=== PATIENT | male | born 1965 | race Caucasian/White ===

== ENCOUNTER → 2017-08-09 06:59 | Outpatient (CLI) | payer OTHER, SELFPAY ==
[2017-08-09 07:44] LABS: Absolute Lymphocyte Count 2.99 X10^3/ul (0.83-4.51); Absolute Neutrophil Count 3.6 X10^3/uL (2.0-7.7); Basophil% 2.5 % (0-1); Eosinophil# 0.44 X10^3/uL; Eosinophils% 5.6 % (0-5); Hematocrit 44.6 % (40-54); Hemoglobin 15.9 g/dl (13.0-16.5); Lymphocyte # 2.99 X10^3/ul (4.0); Lymphocyte % 37.8 % (19-41); Mean Corp Hgb Conc 35.7 g/gl (32-36); Mean Corpuscular Hgb 30.9 pg (27.0-32.0); Mean Corpuscular Volume 86.8 fL (80-94); Mean Platelet Vol. 9.9 fl (6.2-12.0); Monocyte# 0.68 X10^3/uL; Monocyte% 8.6 % (0-10); Neutrophil # 3.57 X10^3/uL (2.7-7.7); Neutrophil % 45.2 % (47-70); Platelet Count 148 K/mm3 (150-450); RBC Distribution Width CV 14.2 % (11.6-14.6); Red Blood Count 5.14 M/mm3 (4.6-6.2); White Blood Count 7.9 K/mm3 (4.4-11.0)
[2017-08-09 07:45] LABS: POSITIVE COUNT NO; POSITIVE DIFFERENTIAL NO; POSITIVE MORPHOLOGY NO
[2017-08-09 08:15] LABS: ALB/GLOB Ratio 0.9 RATIO (0.9-2.4); AST(SGOT) 18 U/L (15-37); Alanine Aminotransfer ALT/SGPT 19 U/L (16-61); Albumin, Serum 3.7 g/dL (3.2-5.0); Alkaline Phosphatase 98 U/L (45-117); Anion Gap 7 (5-15); BUN 9 mg/dL (7-18); BUN/Creat Ratio 10.5 RATIO (10-20); Calcium,Total 8.8 mg/dL (8.5-10.1); Chloride 95 mmol/L (98-107); Cholesterol 243 mg/dL (200); Creatinine, Serum 0.86 mg/dL (0.70-1.30); EST Glomerular Filtration Rate 99 mL/min (>60); Est Glom Filt Rate - Afr Amer 119 mL/min (>60); Globulin 4.2 g/dL (2.2-4.2); Glucose 87 mg/dL (74-106); High Density Lipoprotein 41 mg/dL; Protein, Total 7.9 g/dL (6.4-8.2); Sodium Level 131 mmol/L (136-145); Triglycerides 172 mg/dL; Very Low Density Lipoprotein 34 mg/dL (5-40)
[2017-08-09 08:51] LABS: Vitamin D,25 Hydroxy 10.2 ng/mL (19.95-100.01)
[2017-08-12 15:43] LABS: Testosterone, Total 640 ng/dL (264-916)
== END ==
PROVIDERS: Family Provider Internal Medicine; PCP Internal Medicine; Visit Provider Internal Medicine
DX: I10 Essential (primary) hypertension (principal); N52.9 Male erectile dysfunction, unspecified; F10.10 Alcohol abuse, uncomplicated
CPT/HCPCS: 36415; 80053; 80061; 82306; 84402; 84403; 85025

== ENCOUNTER → 2017-08-26 07:05 | Outpatient (CLI) | payer OTHER, SELFPAY ==
[2017-08-26 09:00] LABS: Anion Gap 8 (5-15); BUN 9 mg/dL (7-18); BUN/Creat Ratio 10.3 RATIO (10-20); Calcium,Total 8.7 mg/dL (8.5-10.1); Chloride 91 mmol/L (98-107); Creatinine, Serum 0.87 mg/dL (0.70-1.30); EST Glomerular Filtration Rate 97 mL/min (>60); Est Glom Filt Rate - Afr Amer 117 mL/min (>60); Glucose 75 mg/dL (74-106); PSA,Total - Annual Screen 1.03 ng/mL (0.00-4.00); Potassium 3.8 mmol/L (3.5-5.1); Sodium Level 128 mmol/L (136-145); Thyroid Stim Hormone (TSH) 3.36 uIU/mL (0.358-3.74)
== END ==
PROVIDERS: Family Provider Internal Medicine; PCP Internal Medicine; Visit Provider Nurse Practitioner Family
DX: I10 Essential (primary) hypertension (principal); N52.9 Male erectile dysfunction, unspecified; Z12.5 Encounter for screening for malignant neoplasm of prostate
CPT/HCPCS: 36415; 80048; 84153; 84443; G0103

== ENCOUNTER → 2017-09-07 07:02 | Outpatient (CLI) | payer OTHER, SELFPAY ==
[2017-09-07 07:37] LABS: Urine Sodium 77 mmol/L (Not Establ.)
[2017-09-07 08:47] LABS: Osmolality, Serum 278 mOsm/KG (275-295); Osmolality, Urine 467 mOsm/KG
== END ==
PROVIDERS: Family Provider Internal Medicine; PCP Internal Medicine; Visit Provider Nurse Practitioner Family
DX: E87.1 Hypo-osmolality and hyponatremia (principal)
CPT/HCPCS: 36415; 83930; 83935; 84300

== ENCOUNTER 2020-01-12 23:45 | Inpatient (IN) | payer OTHER, SELFPAY ==
--- NOTE | 2020-01-12 00:11 | RAD_ITS ---
STUDY: X-RAY CHEST REASON FOR EXAM: Male, 54 years old. Confusion. TECHNIQUE: AP portable upright COMPARISON: None. FINDINGS: No evidence of pneumonia, pulmonary edema, pneumothorax or pleural effusion. Mildly lucent and hyperinflated lungs. Cardiac silhouette, hilar and mediastinal contours with no acute findings. Atherosclerosis of the thoracic aorta. Degenerative osseous changes with no acute osseous abnormality. RAD/Chest 1 View (Portable) IMPRESSION: No acute findings. Suspect mild COPD/emphysema. Electronically Signed: Toni Casper, at 0:32 EDT Tel , Service support ,
[2020-01-12 23:46] VITALS: BP 170/93; PULSE 94; RESP 16; TEMP 36.6; O2SAT 98; BMI 22.3
--- NOTE | 2020-01-12 23:54 | EKG12_ITS ---
Test Reason : SYNCOPY Blood Pressure : / mmHG Vent. Rate : 084 BPM Atrial Rate : 084 BPM P-R Int : 200 ms QRS Dur : 124 ms QT Int : 422 ms P-R-T Axes : 064 021 050 degrees QTc Int : 498 ms Normal sinus rhythm Possible Left atrial enlargement Right bundle branch block Inferior infarct , age undetermined Abnormal ECG Confirmed by KHUSHBU DOMINGO, HUEY ([id number]), index editor MINISTERIO SYED ([id number]) on 01/15/2020 1:09:55 PM Referred By: NEL Confirmed By:HUEY RÍOS MD
--- NOTE | 2020-01-12 23:54 | CT_ITS ---
STUDY: CT BRAIN WITHOUT CONTRAST REASON FOR EXAM: Male, 54 years old. Confusion after falling. TECHNIQUE: Transaxial CT imaging of the brain was performed without administration of intravenous contrast material. Individualized dose optimization techniques were used for this CT. COMPARISON: No relevant priors. FINDINGS: No evidence of intracranial hemorrhage, mass, acute infarct, or hydrocephalus. Chronic microangiopathic changes in the white matter. Atherosclerosis of the intracranial arteries. No skull fracture or acute osseous abnormality. No paranasal sinus air-fluid levels as visualized. Mild mucosal thickening left frontal sinus and anterior ethmoid air cells. Left preorbital soft tissue swelling. CT/Brain/Head without Contrast IMPRESSION: No evidence of intracranial injury or skull fracture. Electronically Signed: Toni Casper, at 0:49 EDT Tel , Service support ,
--- NOTE | 2020-01-12 23:55 | CT_ITS ---
STUDY: CT CERVICAL SPINE WITHOUT CONTRAST REASON FOR EXAM: Male, 54 years old. Confusion after falling. TECHNIQUE: High resolution transaxial imaging was performed without contrast material. Sagittal and coronal images were reconstructed. Individualized dose optimization techniques were used for this CT. COMPARISON: None FINDINGS: No fracture or dislocation of the cervical spine. Alignment anatomic. Multilevel degenerative changes but no evidence of high-grade spinal canal narrowing. No acute findings in the paraspinal soft tissues. No prevertebral hematoma. Calcific atherosclerosis. Mild subpleural emphysema lung apices. CT/Spine Cervical without Contras IMPRESSION: No fracture or dislocation of the cervical spine. Electronically Signed: Toni Casper, at 0:52 EDT Tel , Service support ,
--- NOTE | 2020-01-12 23:57 | ED.DCSUM_ITS ---
History of Present Illness Chief Complaint: Confusion Narrative: Patient presents with confusion. He went to work and during the shift signout apparently a coworker thought he may have been somewhat confused. During his shift he sustained a mechanical fall he tells me tripped over a curb fell and hit his head. He arrives via ambulance he had a normal blood sugar in the ambulance. He knows where he is he knows the month and he knows how old he is. He denies feeling confused but as I am talking to him there is few questions that he answers slightly inappropriately like to 1 but he thinks he is on some sort of paint thinners instead of blood thinners. Recent fever or chills. He remembers the course of the events throughout the day and he gives me a relatively detailed history of when he got to work and what he was doing at the time of the fall. He denies weakness or paresthesias he denies any visual c hanges. Past Medical History - Allergies and Home Meds Allergies/Adverse Reactions: Allergies No Known Allergies Allergy (Unverified 08/06/17 09:13) Primary Care Physician: Leilani Vallejo MD [Primary Care Provider] - Past Medical History: - - Hypertension Smoking Status: Current every day smoker Review of Systems All systems negative except as indicated - He gives me a reasonable review of systems General: Denies: Fever Eyes: Denies: Visual changes - bilaterally ENT: Denies: Rhinorrhea Cardiovascular: Denies: Chest pain Respiratory: Denies: Dyspnea, Cough Gastrointestinal: Denies: Abdominal pain, Nausea, Vomiting Genitourinary: Denies: Dysuria Musculoskeletal: Denies: Myalgias, Arthralgias, Neck pain, Back pain, Extremity Pain Skin: Reports: - - Punctate scalp wound. Neurological: Reports: Headache, - - Headache started after the fall. Denies: Weakness Hematologic: Denies: Easy bruising, Easy bleeding Physical Exam Vital Signs/Narrative: Vital Signs Temp Pulse Resp BP Pulse Ox 01/12/20 23:46 97.9 F 94 16 170/93 H 98 General: Well nourished, Well developed Head: Normocephalic, - - Punctate scalp wound left frontal it is not actively bleeding Eyes: Perrl, EOMI ENT: Moist mucous membranes, No rhinorrhea Neck: Supple, Nontender, - - No C-spine tenderness Cardiovascular: Regular rate, Regular rhythm, No murmurs Respiratory: No distress, CTA bilaterally. Negative for: Chest tenderness Abdomen: Soft, Nontender, Nondistended Back: Nontender, Normal Inspection Extremities: Nontender, No edema Skin: Normal color, No rash Neurological: Alert, Oriented x3, Cranial nerves II-XII grossly intact, Normal Strength, Normal Sensation, Normal Gait, Confused, - - A full NIH stroke scale was done by me, NIH was 0.. Negative for: Disoriented, Weakness, Left side facial droop, Right side facial droop Diagnostic/Tx/Re-eval Chest X-Ray - ED: 1 View, Read by ED Physician, Read by Radiologist, Normal, Heart, Lungs, Mediastinum, Chronic Changes - Rhythm Strip Rhythm Strip: Sinus Rhythm Rate: 84 Ectopy: None - EKG Initial EKG Interpretation: - - Sinus rhythm with a rate of 84. Normal WI interval. Slightly prolonged QTc interval at 498. Right bundle branch pattern. Nonspe cific ST changes throughout. Interpreted by emergency doctor - Medical Decision Making Patient is found to be hyponatremic at 112 hypokalemic at 2.7, chloride is also 72 he did get hydration gently however I am reluctant to over hydrate him because I do not know his volume status as of now. His CBC shows a rouleaux formation, this could be neoplastic in etiology and patient may have SIADH. He will need hyponatremic work-up. As far as his fall and head injury his CTs are unremarkable. He will need admission. ED Disposition - Plan for ED Patient: Disposition: Psychiatric Hospital or Unit Diagnosis: Confusion, Hyponatremia, Hypokalemia Referrals: Leilani Vallejo MD [Primary Care Provider] -
[2020-01-13] VITALS (26 sets, daily range): BP systolic 91–151; BP diastolic 62–105; PULSE 60–87; RESP 13–18; TEMP 35.6–37; O2SAT 95–100; BMI 22.2; BMI 22.3
--- NOTE | 2020-01-13 00:02 | ED.VIS.STROK ---
History of Present Illness Chief Complaint: Confusion Narrative: This template was opened solely for the purpose of the NIH stroke scale see separate documentation for history and medical decision making. Past Medical History - Allergies and Home Meds Allergies/Adverse Reactions: Allergies No Known Allergies Allergy (Unverified 08/06/17 09:13) Primary Care Physician: Leilani Vallejo MD [Primary Care Provider] - Smoking Status: Current every day smoker STROKE Vital Signs/Narrative: Vital Signs Temp Pulse Resp BP Pulse Ox 01/12/20 23:46 97.9 F 94 16 170/93 H 98 - NIHSS Initial 1a Level of Consciousness: 0 1b LOC Questions (Score 2 if aphasic/stupor): 0 1c LOC Commands (Only score 1st attempt): 0 2 Best Gaze (If aphasic, use reflexive mvmts.): 0 3 Visual: 0 4 Facial Palsy: 0 5 Motor Arm Right (UN = amputation/fusion): 0 5 Motor Arm Left: 0 6 Motor Leg Right: 0 6 Motor Leg Left: 0 7 Limb ataxia (Only + if out of proportion): 0 8 Sensory (Aphasia/stupor=0 or 1, coma=2): 0 9 Best Language: 0 10 Dysarthria (mute, coma=2, intubated=UN): 0 11 Extinction and Inattention (only scored if +): 0 Total Score: 0 ED Disposition - Plan for ED Patient: Referrals: Leilani Vallejo MD [Primary Care Provider] -
[2020-01-13 00:09] LABS: Absolute Lymphocyte Count 2.36 X10^3/uL (0.83-4.51); Absolute Neutrophil Count 2.8 X10^3/uL (2.0-7.7); Basophil# 0.03 X10^3/uL; Basophil% 0.5 % (0-1); Eosinophil# 0.17 X10^3/uL; Eosinophils% 2.9 % (0-5); Hematocrit 38.8 % (40-54); Lymphocyte # 2.36 X10^3/ul (4.0); Lymphocyte % 39.7 % (19-41); Mean Corp Hgb Conc 38.7 g/dL (32-36); Mean Corpuscular Hgb 32.7 pg (27.0-32.0); Mean Corpuscular Volume 84.5 fL (80-94); Mean Platelet Vol. 9.7 fl (6.2-12.0); Monocyte# 0.59 X10^3/uL; Monocyte% 9.9 % (0-10); NRBC Flagged by Analyzer 0 % (0-5); Neutrophil # 2.77 X10^3/uL (2.7-7.7); Neutrophil % 46.5 % (47-70); POSITIVE COUNT YES; Platelet Count 107 K/mm3 (150-450); RBC Distribution Width CV 12.2 % (11.6-14.6); RBC Distribution Width SD 37.2 fl (35.1-43.9); Red Blood Count 4.59 M/mm3 (4.6-6.2)
[2020-01-13 00:16] LABS: Alcohol, Blood (Medical)-Serum < 3.0 mg/dL
[2020-01-13 00:19] LABS: Prothrombin Time (Protime)PT. 12.7 SECONDS (11.7-14.9)
[2020-01-13 00:36] LABS: ALB/GLOB Ratio 1.1 RATIO (0.9-2.4); AST(SGOT) 51 U/L (15-37); Alanine Aminotransfer ALT/SGPT 48 U/L (16-61); Albumin, Serum 3.8 g/dL (3.2-5.0); Alkaline Phosphatase 95 U/L (45-117); Anion Gap 9 (5-15); BUN 5 mg/dL (7-18); BUN/Creat Ratio 6.4 RATIO (10-20); Calcium,Total 8.5 mg/dL (8.5-10.1); Chloride 72 mmol/L (98-107); Creatinine, Serum 0.78 mg/dL (0.70-1.30); EST Glomerular Filtration Rate 109 mL/min (>60); Est Glom Filt Rate - Afr Amer 132 mL/min (>60); Estimated Creatinine Clearance 103.68 ml/min; Globulin 3.5 g/dL (2.2-4.2); Glucose 118 mg/dL (74-106); Potassium 2.7 mmol/L (3.5-5.1); Protein, Total 7.3 g/dL (6.4-8.2); Sodium Level 112 mmol/L (136-145)
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
[2020-01-13 01:54] LABS: Osmolality, Serum 227 mOsm/KG (275-295)
--- NOTE | 2020-01-13 02:01 | ED.RN ---
report called to apiculturistcitlali maddox.
[2020-01-13 02:07] LABS: Bacteria 0 SEEN /hpf (None Seen); Color, Urine Yellow (Yellow); Glucose, Dipstick Normal (Normal); Ketone-Dipstick Negative (Negative); Leukocyte Esterase-Dipstick Negative /ul (Negative); Mucous, Urine 0 SEEN /hpf (<or=2+); Nitrite-Dipstick Negative (Negative); Occult Blood-Urine 10 /ul (Negative); Protein-Dipstick Negative (Negative); Red Blood Cells-Urine 0 SEEN /hpf (0-5); Squamous Epithelial Cells - UA 0 SEEN /hpf (0-5); Urine Bilirubin Dipstick Negative (Negative); Urine Clarity Clear (Clear); Urine Urobilinogen Normal (Normal); White Blood Cells 0 SEEN /hpf (0-5)
[2020-01-13 02:11] LABS: Osmolality, Urine 114 mOsm/KG
[2020-01-13 02:12] LABS: Probe Check PASS; Specimen Processing Control PASS
[2020-01-13 02:14] LABS: Vista UDS pH Range 7
[2020-01-13 02:17] LABS: Urine Sodium 11 mmol/L (Not Establ.)
[2020-01-13 02:22] LABS: Thyroid Stim Hormone (TSH) 2.66 uIU/mL (0.358-3.74)
[2020-01-13 02:31] LABS: Amphetamine Urine VISTA NEGATIVE (<1000 ng/mL); Barbiturate Urine VISTA NEGATIVE (< 200 ng/mL); Benzodiazepine Urine VISTA NEGATIVE (< 200 ng/mL); Cocaine Urine VISTA NEGATIVE (< 300 ng/mL); Ecstacy Urine VISTA NEGATIVE (< 500 ng/mL); Methadone Urine VISTA NEGATIVE (< 300 ng/mL); PCP Urine VISTA NEGATIVE (< 25 ng/mL); THC Urine VISTA POSITIVE (< 50 ng/mL)
[2020-01-13 02:40] LABS: Differential Indicated SCAN CRITERIA MET
[2020-01-13 02:41] LABS: Platelet Estimate SLT DEC (ADEQ); Rouleaux 1+
[2020-01-13] MEDS: 0.9% Normal Saline 1,000 ML 100 ML IV ×2 (03:32→12:33)
[2020-01-13] MEDS: Potassium Chloride 10mEq/100mL 10 MEQ/100 ML IV.SOLN. 100 MEQ IV BOLUS ×4 (03:34→07:18)
--- NOTE | 2020-01-13 07:14 | PCM.CON.CC ---
Problem List (1) Confusion Status: Acute (2) Hypokalemia Status: Acute (3) Acute metabolic encephalopathy Status: Acute (4) Hyponatremia Status: Acute (5) Tobacco abuse Status: Chronic (6) Hyperlipidemia Status: Chronic (7) Alcohol abuse Status: Chronic (8) Carpal tunnel syndrome Status: Chronic (9) Hypertension Status: Chronic Reason for Consult Date of Consultation: 01/13/20 Reason for Consultation: Hyponatremia History of Present Illness: The patient is a 54 year old M, with past medical history listed below, who presented was coming hospital on 01/12/2020 after being found confused following work. Patient reportedly completed his shift and was found 2 blocks away following a mechanical fall in a strangers backyard. Patient reportedly had tripped over a curb and hit his head. EMS was called and patient was noted to have a normal blood sugar at the scene. Patient was aware of the month and how old he was, but continued to feel confused. Patient reportedly had not had any recent fever or chills or any other constitutional symptoms. Patient had not had any paresthesias, weakness, aphasia or arthralgias. Stroke team was initially called, but but NIH was found to be 0. EKG showed a sinus rhythm of 84 bpm with a prolonged QT at 498 and a right bundle branch. Laboratory data showed patient was hyponatremic at 112, hypokalemic at 2.7 and hypochloremic at 72. Patient was given some IV fluids. CT of the head was unremarkable for intracranial issues. Patient was admitted to the intensive care unit for close observation. Patient reports that he is a known alcoholic. Patient states that he drinks between 6 and 12 beers per day routinely. Patient estimates that it is been approximately 30 hours since his last drink. Patient does state that he has the shakes if he does not drink alcohol regularly. Patient has been admitted twice before for alcoholic issues. Patient believes he has had a seizure related to not drinking, but both of these were at home. Patient did not have any chemistries done or present for medical attention following these events. Patient states that he is unaware of ever having hyponatremia previously. Patient reports he has no recollection after leaving work to the point of being brought in by EMS. Patient does state that he is willing to attempt quitting alcohol as I am tired of feeling like this. Patient does not report any constitutional symptoms such as fever, chills, nausea or vomiting recently. Patient does occasionally get confused, but attributes this to his drinking. Patient does smoke cigarettes and marijuana. Review of systems otherwise negative from a constitutional, HEENT, respiratory, cardiovascular, GI, genitourinary, musculoskeletal, skin, neurologic, psychiatric and hematologic system unless stated above. Past Medical History Past Medical History (Chronic Problems): Chronic Problems (Last Reviewed 01/13/20 @ 02:[address] Guillaume Jordan MD) Vitamin D deficiency (Chronic) Tobacco abuse (Chronic) Hyperlipidemia (Chronic) Inguinal hernia (Chronic) Erectile dysfunction (Chronic) Alcohol abuse (Chronic) Carpal tunnel syndrome (Chronic) Hypertension (Chronic) Medical History: Medical History (Last Reviewed 01/13/20 @ 02:[address] Guillaume Jordan MD) Carpal tunnel syndrome (Chronic) G56.00 Hypertension (Chronic) I10 Allergies No Known Allergies Allergy (Unverified 08/06/17 09:13) Home Medications: Ambulatory Orders Medication Instructions Recorded cholecalciferol (vitamin D3) 1,250 50,000 unit PO QWEEK #8 cap 08/24/17 mcg (50,000 unit) capsule sildenafil 50 mg tablet 50 mg PO QDAY PRN #6 tab 08/24/17 hydrochlorothiazide 25 mg tablet 25 mg PO QAM #90 tab 06/29/19 lisinopril 20 mg tablet 20 mg PO QDAY #90 tab 06/29/19 Surgical History: no surgical history Smoking Status: Current every day smoker Tobacco Use: Cigarettes Alcohol: Heavy - *Family History Maternal History Items: Diabetes, - - His mother is 84 years old and she is still living. Paternal History Items: Diabetes, - - His father at the age of 95. Review of Systems Comment: See HPI Patient Problems: Active and Suspected Problems (Last Reviewed 01/13/20 @ 02:[address] Guillaume Jordan MD) Confusion (Acute) Hypokalemia (Acute) Acute metabolic encephalopathy (Acute) Red blood cell morphology abnormality (Acute) Hyponatremia (Acute) Objective: All imaging was personally reviewed. Chest x-ray does show some mild hyperinflation, but no infiltrates. CT of the head was unremarkable. Patient has not had an echocardiogram or complete PFT completed at [facility]. - Physical Exam Vitals/I&O's: Vital Signs Temp Pulse Resp BP Pulse Ox 35.6 C L 68 13 130/74 H 99 01/13/20 02:30 01/13/20 06:00 01/13/20 06:00 01/13/20 06:00 01/13/20 06:00 Oxygen Delivery Method Room Air Weight: 68.353 kg Body Mass Index (BMI) 22.2 Intake and Output for Last 24 Hours 01/11/20 01/12/20 01/13/20 23:59 23:59 23:59 Intake Total 700 / 700 Output Total 2600 / 2600 Balance -1900 / -1900 General: Alert, Oriented x3, Cooperative, No apparent distress, - - No conversational dyspnea noted. HEENT: PERRLA, EOMI, Normocephalic, - - Abrasion over left eye. Slight scleral injection without icterus. Oral: Moist Mucosa, No Gingival or Mucosal Lesions/ Ulcerations Neck: Supple, No JVD, No Nodes, Trachea Midline Lungs: Clear to auscultation, Normal air movement, No rhonchi, No wheeze, No rales, - - Symmetric expansion. No dullness to percussion. Cardiovascular: Regular rate, Regular Rhythm, Normal S1, Normal S2, No murmurs, No rub noted, No Gallop Abdomen: Bowel Sounds Present, Soft, Non Tender, Non-Distended Extremities: No clubbing, No cyanosis, No edema, Capillary Refill Less than 3 Seconds Skin: - - Abrasion noted above left eye Musculoskeletal: No Tenderness to Palpation of Joints or Extremities Lymphatic: No Cervical, Supraclavicular, or Inguinal Adenopathy Neurological: Cranial nerves II-XII grossly intact, Neuro grossly intact, Motor Exam 5/5 strength throughout Psych/Mental Status: Appropriate, Flat Affect Laboratory Results 01/12/20 22:50: Serum Osmolality 227 L 01/12/20 23:50: WBC 6.0, RBC 4.59 L, Hgb 15.0, Hct 38.8 L, MCV 84.5, MCH 32.7 H, MCHC 38.7 H, RDW Std Deviation 37.2, RDW Coeff of Leonel 12.2, Plt Count 107 L, MPV 9.7, Immature Gran % (Auto) 0.500, Neut % (Auto) 46.5 L, Lymph % (Auto) 39.7, [place] % (Auto) 9.9, Eos % (Auto) 2.9, Baso % (Auto) 0.5, Absolute Neuts (auto) 2.8, Absolute Lymphs (auto) 2.36, Nucleated RBC % 0, Differential Comment COMMENT, Diff Path Review October foll, Platelet Estimate SLT DECKirstie 1+ 01/12/20 23:50: PT 12.7, INR 1.0 01/12/20 23:50: Sodium 112 L*, Potassium 2.7 L*, Chloride 72 L*, Carbon Dioxide 31.0, Anion Gap 9, BUN 5 L, Creatinine 0.78, Estim Creat Clear Calc 103.68, Est GFR (MDRD) Af Amer 132, Est GFR (MDRD) Non-Af 109, BUN/Creatinine Ratio 6.4 L, Glucose 118 H, Calcium 8.5, Total Bilirubin 1.00, AST 51 H, ALT 48, Alkaline Phosphatase 95, Troponin I < 0.015, Total Protein 7.3, Albumin 3.8, Globulin 3.5, Albumin/Globulin Ratio 1.1 01/12/20 23:50: Ethyl Alcohol < 3.0 01/12/20 23:50: TSH 2.66 01/13/20 01:00: COVID-19 ([facility]) Negative 01/13/20 01:05: Urine Color Yellow, Urine Clarity Clear, Urine pH 7.0, Ur Specific [place] 1.010, Urine Protein Negative, Urine Glucose (UA) Normal, Urine Ketones Negative, Urine Occult Blood 10 H, Urine Nitrite Negative, Urine Bilirubin Negative, Urine Urobilinogen Normal, Ur Leukocyte Esterase Negative, Urine RBC 0 SEEN, Urine WBC 0 SEEN, Ur Squamous Epith Cells 0 SEEN, Urine Bacteria 0 SEEN, Urine Mucus 0 SEEN 01/13/20 01:05: Urine Opiates Screen NEGATIVE, Urine Methadone Screen NEGATIVE, Ur Barbiturates Screen NEGATIVE, Ur Phencyclidine Scrn NEGATIVE, Ur Amphetamines Screen NEGATIVE, U Methamphetamin-MDMA NEGATIVE, U Benzodiazepines Scrn NEGATIVE, Urine Cocaine Screen NEGATIVE, U Cannabinoids Screen POSITIVE H, Ur Drug Screen Comment 01/13/20 01:05: Urine Osmolality 114 01/13/20 01:05: Ur Random Sodium 11 01/13/20 01:05: Urine Total Protein Pending, Urine Albumin Pending, U Sdjgm-3-Lzpvzqoq Pending, U Yirhh-9-Gzxrqmvk Pending, U Beta Globulin Pending, U Gamma Globulin Pending, U PEP M-Sahil Pending 01/13/20 01:55: Total Protein (PEP) Pending, Albumin (PEP) Pending, Globulin (PEP) Pending, Albumin/Globulin (PEP) Pending, Neaxl-8-Uenomkbqh Pending, Nnspa-5-Ufedzqdrn Pending, Beta Globulins Pending, Gamma Globulins Pending, M-Sahil Pending, Urine Total Protein Cancelled, Urine Albumin Cancelled, U Tafuz-4-Cnmvmjck Cancelled, U Aanim-8-Kzkftgud Cancelled, U Beta Globulin Cancelled, U Gamma Globulin Cancelled, U PEP M-Sahil Cancelled Current Medications Acetaminophen (Tylenol) 650 mg PO Q6H PRN PRN PRN Reason: Pain Score 1-10/Temp > 100.7 F Dextrose (D50w Syringe) 0 gm IV X1 PRN; Protocol PRN Reason: Hypoglycemia Enoxaparin Sodium (Lovenox) 40 mg SC DAILY [facility] Folic Acid (Folic Acid) 1 mg PO DAILY@0800 [facility] Stop: 01/15/20 08:01 Glucagon () 1 mg IM .X1 PRN PRN Reason: Hypoglycemia Sodium Chloride () 1,000 mls @ 100 mls/hr IV .Q10H [facility] Last Admin: 01/13/20 03:32 Dose: 100 mls/hr Documented by: Sodium Chloride () 1,000 mls @ 15 mls/hr IV .Q48H [facility] Sodium Chloride () 250 mls @ 15 mls/hr IV .[id number] PRN PRN Reason: Saline Flush Sodium Chloride () 250 mls @ 15 mls/hr IV .[id number] PRN PRN Reason: Additional IVPB Infusion Lisinopril (Zestril) 20 mg PO DAILY [facility] Lorazepam (Ativan) 2 mg PO Q2H PRN PRN; Protocol PRN Reason: CIWA score > 8 but <15 Lorazepam (Ativan) 2 mg PO UD PRN; Protocol PRN Reason: CIWA score >/=15. Lorazepam (Ativan) 2 mg IV Q2H PRN PRN; Protocol PRN Reason: CIWA score > 8 but <15 Lorazepam (Ativan) 2 mg IV UD PRN; Protocol PRN Reason: CIWA score >/=15. Multivitamins/Minerals (Multivitamin With Minerals (Bkc)) 1 tablet PO DAILYCM [facility] Nicotine (Nicoderm Cq (Pbkc)) 14 mg TRANSDERM. DAILY [facility] Ondansetron HCl (Zofran) 4 mg IV Q8H PRN PRN PRN Reason: NAUSEA/VOMITING Sodium Chloride () 10 - 40 ml IV UD PRN PRN Reason: SALINE FLUSH Sodium Chloride () 10 - 40 ml IV UD PRN PRN Reason: SALINE FLUSH Thiamine HCl (Vitamin B1) 100 mg PO BIDCM [facility] Stop: 01/15/20 17:01 Clinical Impression(s) from Imaging Studies Chest X-Ray 01/12/20 00:11 IMPRESSION: No acute findings. Suspect mild COPD/emphysema. Electronically Signed: Toni Casper at 0:32 EDT Tel , Service support , Brain CT 01/12/20 23:54 IMPRESSION: No evidence of intracranial injury or skull fracture. Electronically Signed: Toni Casper at 0:49 EDT Tel , Service support , Cervical Spine CT 01/12/20 23:55 IMPRESSION: No fracture or dislocation of the cervical spine. Electronically Signed: Toni Casper at 0:52 EDT Tel , Service support , Assessment/Plan Active and Suspected Problems (Last Reviewed 01/13/20 @ 02:[address] Guillaume Jordan MD) Confusion (Acute) Hypokalemia (Acute) Acute metabolic encephalopathy (Acute) Red blood cell morphology abnormality (Acute) Hyponatremia (Acute) RECOMMENDATIONS: 1. Continue slow volume resuscitation 2. Aggressive electrolyte repletion as indicated 3. CIWA protocol, add phenobarbital if requires PRN Ativan 4. PRN medication for hypertension IMPRESSIONS: 1. Acute metabolic encephalopathy secondary to hypovolemic hyponatremia Patient receiving volume resuscitation at this time. Currently getting BMPs every 4 hours. Await repeat BMP. Patient will likely require significant electrolyte repletion throughout hospitalization given alcoholism. Continue with seizure precautions. Possibly transfer from the intensive care unit once sodium is greater than 124. 2. Hypokalemia/hypochloremia/probable refeeding syndrome Continue with aggressive supplementation. Anticipate patient will require 300 to 400 mEq of potassium to replete stores. Patient is receiving thiamine and folate. 3. Alcohol abuse Unclear true volume intake. Patient states his last drink was 30 hours ago. Patient is on CIWA protocol. Unclear if patient has a history of withdrawal seizure secondary to alcohol versus possible seizures related to hyponatremia. Patient did not have chemistries checked previously. Patient is open to sobriety, so will discuss with case management about the 180 program. 4. Head contusion/hypertension/poor historian/poor primary care follow-up Complicates care, management, recovery and prognosis. Patient reportedly did have rouleaux formation of blood. Electrophoresis has been sent. Inpatient E&M: [id number] Init Hosp L3
[2020-01-13] MEDS: Thiamine Hydrochloride 100 MG Tablet PO ×2 (08:25→17:32)
[2020-01-13] MEDS: Folic Acid 1 MG Tablet PO (08:25)
[2020-01-13] MEDS: Multivitamins,Ther W-Minerals Tablet 1 TABLET PO (08:25)
[2020-01-13 08:58] LABS: Absolute Lymphocyte Count 1.33 X10^3/uL (0.83-4.51); Absolute Neutrophil Count 3.7 X10^3/uL (2.0-7.7); Basophil# 0.02 X10^3/uL; Basophil% 0.3 % (0-1); Eosinophil# 0.08 X10^3/uL; Eosinophils% 1.4 % (0-5); Hematocrit 39.8 % (40-54); Hemoglobin 14.9 g/dL (13.0-16.5); Lymphocyte # 1.33 X10^3/ul (4.0); Lymphocyte % 23.1 % (19-41); Mean Corp Hgb Conc 37.4 g/dL (32-36); Mean Corpuscular Hgb 32.5 pg (27.0-32.0); Mean Corpuscular Volume 86.7 fL (80-94); Mean Platelet Vol. 9.9 fl (6.2-12.0); Monocyte# 0.58 X10^3/uL; Monocyte% 10.1 % (0-10); NRBC Flagged by Analyzer 0 % (0-5); Neutrophil # 3.73 X10^3/uL (2.7-7.7); Neutrophil % 64.8 % (47-70); Platelet Count 108 K/mm3 (150-450); RBC Distribution Width CV 12.8 % (11.6-14.6); RBC Distribution Width SD 39.9 fl (35.1-43.9); Red Blood Count 4.59 M/mm3 (4.6-6.2); White Blood Count 5.8 K/mm3 (4.4-11.0)
[2020-01-13 09:22] LABS: Magnesium 2.4 mg/dL (1.6-2.6)
[2020-01-13 09:25] LABS: Anion Gap 2 (5-15); BUN 3 mg/dL (7-18); BUN/Creat Ratio 4.5 RATIO (10-20); Chloride 86 mmol/L (98-107); Creatinine, Serum 0.67 mg/dL (0.70-1.30); EST Glomerular Filtration Rate 130 mL/min (>60); Est Glom Filt Rate - Afr Amer 157 mL/min (>60); Estimated Creatinine Clearance 120.44 ml/min; Glucose 91 mg/dL (74-106); Sodium Level 120 mmol/L (136-145)
--- NOTE | 2020-01-13 09:27 | CASEMGMT ---
RN CM Assessment Note Presentation: Fall, confusion Diagnosis: hyponatremia, ETOH/drug use Intro role of CM to patient in room. Patient is awake, alert and able to participate in assessment. Pt states he is independent, no DME, no care needs. PCP: Dr. Vallejo Specialists: none Insurance: [employer] [facility]erred [facility]acy[facility] Prescription Benefit: yes LNOK: Thor Hebert, Brother Living Arrangements: Lives independently in home. No care needs identified. Tranportation: drives DME: none SW consult: ETOH/substance abuse Hx. Message left for SW re: consult.Pt follow up with 180 and has an appointment in two weeks. Patient DC Goals: Home DC Plan: Home. CM available for discharge planning coordination. Contact CM for any concerns/needs that may arise. Tim ORDAZ RN ACM
[2020-01-13 09:59] LABS: Phosphorus 1.8 mg/dL (2.5-4.9)
[2020-01-13] MEDS: Lisinopril 20 MG Tablet PO (10:40)
[2020-01-13] MEDS: Enoxaparin 40 MG/0.4 ML Syringe SC (10:40)
--- NOTE | 2020-01-13 11:39 | PN_ITS ---
<Kranthi Stephens - Last Filed: 01/13/20 11:51> Patient Problems: Active and Suspected Problems (Last Reviewed 01/13/20 @ 02:[address] Guillaume Jordan MD) Confusion (Acute) Hypokalemia (Acute) Acute metabolic encephalopathy (Acute) Hyponatremia (Acute) Reason for Visit: hyponatremia, AMS Subjective: Pt does not appear confused. He has some right shoulder pain - minimal. He has had resolution of his all over muscle aches that he attributes to seizure. No tongue biting or loss of bowel/bladder. No DAVID/dizziness. No paraesthesias or muscle tremor. Pt drinks about 8 beers normally when he gets off his shift to help him sleep. Vitals/I&O's: Vital Signs Temp Pulse Resp BP Pulse Ox 97.5 F L 72 14 107/80 97 01/13/20 08:00 01/13/20 10:00 01/13/20 10:00 01/13/20 10:00 01/13/20 10:00 Oxygen Delivery Method Room Air Weight: 150 lb 11.094 oz Body Mass Index (BMI) 22.2 Intake and Output for Last 24 Hours 01/11/20 01/12/20 01/13/20 23:59 23:59 23:59 Intake Total 900 / 900 Output Total 2900 / 2900 Balance -1999 / General: Alert, Oriented x3, Cooperative HEENT: Atraumatic, PERRLA, EOMI, Normocephalic, - - bruise bl forehead. Neck: Supple, No JVD, Negative Carotid Bruits Lungs: Clear to auscultation, Normal air movement Cardiovascular: Regular rate, No murmurs Abdomen: Bowel Sounds Present, Soft, Non Tender Extremities: No edema, Capillary Refill Less than 3 Seconds Skin: No rashes, No breakdown Musculoskeletal: No Tenderness to Palpation of Joints or Extremities Neurological: Cranial nerves II-XII grossly intact Psych/Mental Status: Normal Affect, Appropriate Laboratory Results 01/12/20 22:50: Serum Osmolality 227 L 01/12/20 23:50: WBC 6.0, RBC 4.59 L, Hgb 15.0, Hct 38.8 L, MCV 84.5, MCH 32.7 H, MCHC 38.7 H, RDW Std Deviation 37.2, RDW Coeff of Leonel 12.2, Plt Count 107 L, MPV 9.7, Immature Gran % (Auto) 0.500, Neut % (Auto) 46.5 L, Lymph % (Auto) 39.7, [place] % (Auto) 9.9, Eos % (Auto) 2.9, Baso % (Auto) 0.5, Absolute Neuts (auto) 2.8, Absolute Lymphs (auto) 2.36, Nucleated RBC % 0, Differential Comment COMMENT, Diff Path Review October bobo, Platelet Estimate SLT [facility] 1+ 01/12/20 23:50: PT 12.7, INR 1.0 01/12/20 23:50: Sodium 112 L*, Potassium 2.7 L*, Chloride 72 L*, Carbon Dioxide 31.0, Anion Gap 9, BUN 5 L, Creatinine 0.78, Estim Creat Clear Calc 103.68, Est GFR (MDRD) Af Amer 132, Est GFR (MDRD) Non-Af 109, BUN/Creatinine Ratio 6.4 L, Glucose 118 H, Calcium 8.5, Total Bilirubin 1.00, AST 51 H, ALT 48, Alkaline Phosphatase 95, Troponin I < 0.015, Total Protein 7.3, Albumin 3.8, Globulin 3.5, Albumin/Globulin Ratio 1.1 01/12/20 23:50: Ethyl Alcohol < 3.0 01/12/20 23:50: TSH 2.66 01/13/20 01:00: COVID-19 ([facility]) Negative 01/13/20 01:05: Urine Color Yellow, Urine Clarity Clear, Urine pH 7.0, Ur Specific [place] 1.010, Urine Protein Negative, Urine Glucose (UA) Normal, Urine Ketones Negative, Urine Occult Blood 10 H, Urine Nitrite Negative, Urine Bilirubin Negative, Urine Urobilinogen Normal, Ur Leukocyte Esterase Negative, Urine RBC 0 SEEN, Urine WBC 0 SEEN, Ur Squamous Epith Cells 0 SEEN, Urine Bacteria 0 SEEN, Urine Mucus 0 SEEN 01/13/20 01:05: Urine Opiates Screen NEGATIVE, Urine Methadone Screen NEGATIVE, Ur Barbiturates Screen NEGATIVE, Ur Phencyclidine Scrn NEGATIVE, Ur Amphetamines Screen NEGATIVE, U Methamphetamin-MDMA NEGATIVE, U Benzodiazepines Scrn NEGATIVE, Urine Cocaine Screen NEGATIVE, U Cannabinoids Screen POSITIVE H, Ur Drug Screen Comment 01/13/20 01:05: Urine Osmolality 114 01/13/20 01:05: Ur Random Sodium 11 01/13/20 01:05: Urine Total Protein Pending, Urine Albumin Pending, U Qpicx-9-Mwbzbygx Pending, U Zpehs-7-Ijrvtmoa Pending, U Beta Globulin Pending, U Gamma Globulin Pending, U PEP M-Sahil Pending 01/13/20 01:55: Total Protein (PEP) Pending, Albumin (PEP) Pending, Globulin (PEP) Pending, Albumin/Globulin (PEP) Pending, Qoiqv-5-Rpbbzypnx Pending, Vkryz-2-Htihskywe Pending, Beta Globulins Pending, Gamma Globulins Pending, M- Sahil Pending, Urine Total Protein Cancelled, Urine Albumin Cancelled, U Oqfqu-0-Ttcdtrar Cancelled, U Obgvu-2-Ahthzose Cancelled, U Beta Globulin Cancelled, U Gamma Globulin Cancelled, U PEP M-Sahil Cancelled 01/13/20 08:30: WBC 5.8, RBC 4.59 L, Hgb 14.9, Hct 39.8 L, MCV 86.7, MCH 32.5 H, MCHC 37.4 H, RDW Std Deviation 39.9, RDW Coeff of Leonel 12.8, Plt Count 108 L, MPV 9.9, Immature Gran % (Auto) 0.300, Neut % (Auto) 64.8, Lymph % (Auto) 23.1, [place] % (Auto) 10.1 H, Eos % (Auto) 1.4, Baso % (Auto) 0.3, Absolute Neuts (auto) 3.7, Absolute Lymphs (auto) 1.33, Nucleated RBC % 0 01/13/20 08:30: Magnesium 2.4 01/13/20 08:30: Cortisol 16.90 01/13/20 08:30: Sodium 120 L, Potassium 3.0 L, Chloride 86 L, Carbon Dioxide 32.0, Anion Gap 2 L, BUN 3 L, Creatinine 0.67 L, Estim Creat Clear Calc 120.44, Est GFR (MDRD) Af Amer 157, Est GFR (MDRD) Non-Af 130, BUN/Creatinine Ratio 4.5 L, Glucose 91, Calcium 8.0 L 01/13/20 08:30: Phosphorus 1.8 L Current Medications Acetaminophen (Tylenol) 650 mg PO Q6H PRN PRN PRN Reason: Pain Score 1-10/Temp > 100.7 F Dextrose (D50w Syringe) 0 gm IV X1 PRN; Protocol PRN Reason: Hypoglycemia Enoxaparin Sodium (Lovenox) 40 mg SC DAILY [facility] Last Admin: 01/13/20 10:40 Dose: 40 mg Documented by: Folic Acid (Folic Acid) 1 mg PO DAILY@0800 [facility] Stop: 01/15/20 08:01 Last Admin: 01/13/20 08:25 Dose: 1 mg Documented by: Glucagon () 1 mg IM .X1 PRN PRN Reason: Hypoglycemia Sodium Chloride () 1,000 mls @ 100 mls/hr IV .Q10H [facility] Last Admin: 01/13/20 03:32 Dose: 100 mls/hr Documented by: Sodium Chloride () 1,000 mls @ 15 mls/hr IV .Q48H [facility] Last Admin: 01/13/20 08:20 Dose: Not Given Documented by: Sodium Chloride () 250 mls @ 15 mls/hr IV .[id number] PRN PRN Reason: Saline Flush Sodium Chloride () 250 mls @ 15 mls/hr IV .[id number] PRN PRN Reason: Additional IVPB Infusion Potassium Phosphate 30 mm/ (Sodium Chloride) 260 mls @ 42 mls/hr IV X1 ONE Stop: 01/13/20 17:11 Lisinopril (Zestril) 20 mg PO DAILY [facility] Last Admin: 01/13/20 10:40 Dose: 20 mg Documented by: Lorazepam (Ativan) 2 mg PO Q2H PRN PRN; Protocol PRN Reason: CIWA score > 8 but <15 Lorazepam (Ativan) 2 mg PO UD PRN; Protocol PRN Reason: CIWA score >/=15. Lorazepam (Ativan) 2 mg IV Q2H PRN PRN; Protocol PRN Reason: CIWA score > 8 but <15 Lorazepam (Ativan) 2 mg IV UD PRN; Protocol PRN Reason: CIWA score >/=15. Lorazepam (Ativan) 2 mg IV Q2H PRN PRN PRN Reason: SEIZURES Multivitamins/Minerals ([facility] ([facility] Last Admin: 01/13/20 08:25 Dose: 1 tablet Documented by: Nicotine (Nicoderm Cq (Pbkc)) 14 mg TRANSDERM. DAILY [facility] Last Admin: 01/13/20 10:44 Dose: Not Given Documented by: Ondansetron HCl (Zofran) 4 mg IV Q8H PRN PRN PRN Reason: NAUSEA/VOMITING Sodium Chloride () 10 - 40 ml IV UD PRN PRN Reason: SALINE FLUSH Sodium Chloride () 10 - 40 ml IV UD PRN PRN Reason: SALINE FLUSH Thiamine HCl (Vitamin B1) 100 mg PO BIDCM [facility] Stop: 01/15/20 17:01 Last Admin: 01/13/20 08:25 Dose: 100 mg Documented by: STROKE Vital Signs/Narrative: Vital Signs Temp Pulse Resp BP Pulse Ox 01/13/20 10:00 72 14 107/80 97 01/13/20 08:00 97.5 F L 67 14 131/80 H 99 Medical Necessity - Tobacco Use Smoking Status: Current every day smoker Tobacco Use: Cigarettes Assessment/Plan All Active Problems (Last Reviewed 01/13/20 @ 02:[address] Guillaume Jordan MD) Confusion (Acute) Hypokalemia (Acute) Acute metabolic encephalopathy (Acute) Hyponatremia (Acute) 1. Acute metabolic encephalopathy 2/2 acute on chronic hyponatremia - encephalopathy resolved. Na and K improving. Serial BMP. Likely this is beer potomania. drinks 8 beers at once when he gets off work nightly. Mag normal. Phos low, started on K phos. CT C spine without acute fx. CT brain neg. CXR shows mild COPD/emphysema. TSH and cortisol nl. UA neg, Urine creat, urea, and urine proteins pending, urine Na 11. HCTZ discontinued. 2. Alcoholism -CIWA protocol, prn ativan, if withdrawal worsens initiate phenobarb. Continue thiamine and folate. 3. Tobacco abuse - smokes just under a ppd however has no current cravings and declines patch 4. HTN - HCTZ discontinued. Continue lisinopril. DVT ppx: lovenox This patient was seen by Kranthi Stephens PA-C under the supervision of Doctor Sherin. <Naren Duff E - Last Filed: 01/13/20 13:13> Vitals/I&O's: Vital Signs Temp Pulse Resp BP Pulse Ox 97.7 F L 68 15 123/88 H 100 01/13/20 12:00 01/13/20 12:00 01/13/20 12:00 01/13/20 12:00 01/13/20 12:00 Oxygen Delivery Method Room Air Weight: 150 lb 11.094 oz Body Mass Index (BMI) 22.2 Intake and Output for Last 24 Hours 01/11/20 01/12/20 01/13/20 23:59 23:59 23:59 Intake Total 2281.67 / 2281.67 Output Total 3300 / 3300 Balance -1018.33 / -1018.33 Laboratory Results 01/12/20 22:50: Serum Osmolality 227 L 01/12/20 23:50: WBC 6.0, RBC 4.59 L, Hgb 15.0, Hct 38.8 L, MCV 84.5, MCH 32.7 H, MCHC 38.7 H, RDW Std Deviation 37.2, RDW Coeff of Leonel 12.2, Plt Count 107 L, MPV 9.7, Immature Gran % (Auto) 0.500, Neut % (Auto) 46.5 L, Lymph % (Auto) 39.7, [place] % (Auto) 9.9, Eos % (Auto) 2.9, Baso % (Auto) 0.5, Absolute Neuts (auto) 2.8, Absolute Lymphs (auto) 2.36, Nucleated RBC % 0, Differential Comment COMMENT, Diff Path Review October bobo, Platelet Estimate [facility] 1+ 01/12/20 23:50: PT 12.7, INR 1.0 01/12/20 23:50: Sodium 112 L*, Potassium 2.7 L*, Chloride 72 L*, Carbon Dioxide 31.0, Anion Gap 9, BUN 5 L, Creatinine 0.78, Estim Creat Clear Calc 103.68, Est GFR (MDRD) Af Amer 132, Est GFR (MDRD) Non-Af 109, BUN/Creatinine Ratio 6.4 L, Glucose 118 H, Calcium 8.5, Total Bilirubin 1.00, AST 51 H, ALT 48, Alkaline Phosphatase 95, Troponin I < 0.015, Total Protein 7.3, Albumin 3.8, Globulin 3.5, Albumin/Globulin Ratio 1.1 01/12/20 23:50: Ethyl Alcohol < 3.0 01/12/20 23:50: TSH 2.66 01/13/20 01:00: COVID-19 ([facility]) Negative 01/13/20 01:05: Urine Color Yellow, Urine Clarity Clear, Urine pH 7.0, Ur Specific [place] 1.010, Urine Protein Negative, Urine Glucose (UA) Normal, Urine Ketones Negative, Urine Occult Blood 10 H, Urine Nitrite Negative, Urine Bilirubin Negative, Urine Urobilinogen Normal, Ur Leukocyte Esterase Negative, Urine RBC 0 SEEN, Urine WBC 0 SEEN, Ur Squamous Epith Cells 0 SEEN, Urine Bacteria 0 SEEN, Urine Mucus 0 SEEN 01/13/20 01:05: Urine Opiates Screen NEGATIVE, Urine Methadone Screen NEGATIVE, Ur Barbiturates Screen NEGATIVE, Ur Phencyclidine Scrn NEGATIVE, Ur Amphetamines Screen NEGATIVE, U Methamphetamin-MDMA NEGATIVE, U Benzodiazepines Scrn NEGATIVE, Urine Cocaine Screen NEGATIVE, U Cannabinoids Screen POSITIVE H, Ur Drug Screen Comment 01/13/20 01:05: Urine Osmolality 114 01/13/20 01:05: Ur Random Sodium 11 01/13/20 01:05: Urine Total Protein Pending, Urine Albumin Pending, U Qibnr-1-Dierijwg Pending, U Uvdiu-2-Jsirslyo Pending, U Beta Globulin Pending, U Gamma Globulin Pending, U PEP M-Sahil Pending 01/13/20 01:05: Urine Creatinine 39.10 01/13/20 01:05: Urine Urea Nitrogen 117 01/13/20 01:55: Total Protein (PEP) Pending, Albumin (PEP) Pending, Globulin (PEP) Pending, Albumin/Globulin (PEP) Pending, Paqok-2-Idbsvixdu Pending, Dhzjo-3-Azoansxch Pending, Beta Globulins Pending, Gamma Globulins Pending, M- Sahil Pending, Urine Total Protein Cancelled, Urine Albumin Cancelled, U Ypnpr-4-Alpeynvg Cancelled, U Qfgge-5-Vpvxvdvl Cancelled, U Beta Globulin Cancelled, U Gamma Globulin Cancelled, U PEP M-Sahil Cancelled 01/13/20 08:30: WBC 5.8, RBC 4.59 L, Hgb 14.9, Hct 39.8 L, MCV 86.7, MCH 32.5 H, MCHC 37.4 H, RDW Std Deviation 39.9, RDW Coeff of Leonel 12.8, Plt Count 108 L, MPV 9.9, Immature Gran % (Auto) 0.300, Neut % (Auto) 64.8, Lymph % (Auto) 23.1, [place] % (Auto) 10.1 H, Eos % (Auto) 1.4, Baso % (Auto) 0.3, Absolute Neuts (auto) 3.7, Absolute Lymphs (auto) 1.33, Nucleated RBC % 0 01/13/20 08:30: Magnesium 2.4 01/13/20 08:30: Cortisol 16.90 01/13/20 08:30: Sodium 120 L, Potassium 3.0 L, Chloride 86 L, Carbon Dioxide 32.0, Anion Gap 2 L, BUN 3 L, Creatinine 0.67 L, Estim Creat Clear Calc 120.44, Est GFR (MDRD) Af Amer 157, Est GFR (MDRD) Non-Af 130, BUN/Creatinine Ratio 4.5 L, Glucose 91, Calcium 8.0 L 01/13/20 08:30: Phosphorus 1.8 L Current Medications Acetaminophen (Tylenol) 650 mg PO Q6H PRN PRN PRN Reason: Pain Score 1-10/Temp > 100.7 F Dextrose (D50w Syringe) 0 gm IV X1 PRN; Protocol PRN Reason: Hypoglycemia Enoxaparin Sodium (Lovenox) 40 mg SC DAILY [facility] Last Admin: 01/13/20 10:40 Dose: 40 mg Documented by: Folic Acid (Folic Acid) 1 mg PO DAILY@0800 [facility] Stop: 01/15/20 08:01 Last Admin: 01/13/20 08:25 Dose: 1 mg Documented by: Glucagon () 1 mg IM .X1 PRN PRN Reason: Hypoglycemia Sodium Chloride () 1,000 mls @ 100 mls/hr IV .Q10H [facility] Last Admin: 01/13/20 12:33 Dose: 100 mls/hr Documented by: Sodium Chloride () 1,000 mls @ 15 mls/hr IV .Q48H [facility] Last Admin: 01/13/20 08:20 Dose: Not Given Documented by: Sodium Chloride () 250 mls @ 15 mls/hr IV .[id number] PRN PRN Reason: Saline Flush Sodium Chloride () 250 mls @ 15 mls/hr IV .[id number] PRN PRN Reason: Additional IVPB Infusion Potassium Phosphate 30 mm/ (Sodium Chloride) 260 mls @ 42 mls/hr IV X1 ONE Stop: 01/13/20 17:11 Last Admin: 01/13/20 11:49 Dose: 42 mls/hr Documented by: Lisinopril (Zestril) 20 mg PO DAILY [facility] Last Admin: 01/13/20 10:40 Dose: 20 mg Documented by: Lorazepam (Ativan) 2 mg PO Q2H PRN PRN; Protocol PRN Reason: CIWA score > 8 but <15 Lorazepam (Ativan) 2 mg PO UD PRN; Protocol PRN Reason: CIWA score >/=15. Lorazepam (Ativan) 2 mg IV Q2H PRN PRN; Protocol PRN Reason: CIWA score > 8 but <15 Lorazepam (Ativan) 2 mg IV UD PRN; Protocol PRN Reason: CIWA score >/=15. Lorazepam (Ativan) 2 mg IV Q2H PRN PRN PRN Reason: SEIZURES Multivitamins/Minerals ([facility] With [facility] ([facility])) [facility] Last Admin: 01/13/20 08:25 Dose: 1 tablet Documented by: Nicotine (Nicoderm Cq (Pbkc)) 14 mg TRANSDERM. DAILY [facility] Last Admin: 01/13/20 10:44 Dose: Not Given Documented by: Ondansetron HCl (Zofran) 4 mg IV Q8H PRN PRN PRN Reason: NAUSEA/VOMITING Sodium Chloride () 10 - 40 ml IV UD PRN PRN Reason: SALINE FLUSH Sodium Chloride () 10 - 40 ml IV UD PRN PRN Reason: SALINE FLUSH Thiamine HCl (Vitamin B1) 100 mg PO BIDCM [facility] Stop: 01/15/20 17:01 Last Admin: 01/13/20 08:25 Dose: 100 mg Documented by: STROKE Vital Signs/Narrative: Vital Signs Temp Pulse Resp BP BP Pulse Ox 01/13/20 12:00 97.7 F L 68 15 123/88 H 123/88 H 100 01/13/20 10:00 72 14 107/80 97 Assessment/Plan Hospitalist note: I am seeing this patient in conjunction with Kranthi Stephens. I independently seen and examined the patient. Progress note above, laboratory data and imaging studies reviewed and I concur with above treatment plan. Today, patient is awake, alert, oriented x3. He complained of vague muscle aches all over. Denied nausea or vomiting. Denied chest pain or shortness of breath. His vital signs are stable. - Physical Exam General: Alert, Oriented x3, Cooperative, No apparent distress. HEENT: traumatic, bruises around left eye, PERRLA, EOMI. Neck: Supple, No JVD, Negative Carotid Bruits, Trachea Midline, Thyroid Normal. Lungs: Clear to auscultation, Normal air movement, No rhonchi, No wheeze, No rales. Cardiovascular: Regular rate, Regular Rhythm, Normal S1, Normal S2, PMI Normal. Abdomen: Bowel Sounds Present, Soft, Non Tender, Non-Distended, No Hepato- splenomegaly. Extremities: No clubbing, No cyanosis, No edema Skin: No rashes, No breakdown Neurological: Cranial nerves are intact, neuro grossly intact Vital Signs are stable. Assessment and plan: #1 acute metabolic encephalopathy: Secondary to severe hyponatremia. There is a concern that patient may had alcohol withdrawal seizure but not clear. CT scan brain showed no acute findings. CT scan cervical spine was unremarkable. Today, patient is alert and noted x3. He has no focal deficit. His vital signs are stable. Sodium, potassium and chloride are improving. Plan for aggressive replacement of electrolytes. #2 acute on chronic hyponatremia/severe hypokalemia/hypochloremia/hypophosphatemia: Probably patient does have chronic hyponatremia secondary to alcohol abuse and could be exaggerated by dehydration. Admission sodium was 112 and came up to 120, improving. Serum potassium, phosphorus and chloride are being replaced and improving as well. Serum magnesium was normal. LFT was unremarkable. Plan to repeat CMP tomorrow morning. #3 alcohol abuse: He is on CIWA protocol, folic acid, thiamine, PRN Ativan. #4 other chronic medical problems: Stable, continue current medications as above. This note was generated with [employer] dictation software. It may contain incorrect words, spelling, and punctuation that were not noted in checking the note before signing. Inpatient E&M: [id number] Subs Hosp L2
[2020-01-13 12:31] LABS: Urea Nitrogen, Urine 117 mg/dL (NO RANGE EST.)
[2020-01-13] MEDS: LORazepam 1 MG Tablet 2 MG PO (17:46)
[2020-01-13 18:58] LABS: Anion Gap 4 (5-15); BUN 3 mg/dL (7-18); BUN/Creat Ratio 4.2 RATIO (10-20); Calcium,Total 7.9 mg/dL (8.5-10.1); Chloride 90 mmol/L (98-107); Creatinine, Serum 0.71 mg/dL (0.70-1.30); EST Glomerular Filtration Rate 122 mL/min (>60); Est Glom Filt Rate - Afr Amer 147 mL/min (>60); Estimated Creatinine Clearance 113.65 ml/min; Glucose 102 mg/dL (74-106); Potassium 3.2 mmol/L (3.5-5.1); Sodium Level 124 mmol/L (136-145)
--- NOTE | 2020-01-13 19:08 | CASEMGMT ---
SOCIAL WORK Informant: ase master mechanic Reason for Consult: ETOH Abuse Attempted to meet with patient to provide resources. Nursing reports medicated patient with Ativan, patient sleeping soundly. Per nursing, patient is connected with [facility] and has appointment next week. Resource packet left at bedside. SW will remain available for needs. Augustus Currie, BICYCLE INSPECTOR, FIRST LEVELER
[2020-01-13 20:24] LABS: Anion Gap 5 (5-15); BUN 3 mg/dL (7-18); BUN/Creat Ratio 4.3 RATIO (10-20); Calcium,Total 7.8 mg/dL (8.5-10.1); Chloride 91 mmol/L (98-107); EST Glomerular Filtration Rate 124 mL/min (>60); Est Glom Filt Rate - Afr Amer 150 mL/min (>60); Estimated Creatinine Clearance 115.28 ml/min; Glucose 82 mg/dL (74-106); Potassium 3.1 mmol/L (3.5-5.1); Sodium Level 125 mmol/L (136-145)
[2020-01-13 20:27] LABS: Phosphorus 2.5 mg/dL (2.5-4.9)
[2020-01-13] MEDS: Phenobarbital 32.4 MG Tablet PO (22:00)
[2020-01-13] MEDS: Potassium Chloride 40 MEQ in 0.9% Normal Saline 1,000 ML 75 MEQ IV (22:00)
[2020-01-13] MEDS: 0.9% Saline Lock 10 ML Syringe IV (22:00)
[2020-01-14] VITALS (16 sets, daily range): BP systolic 103–154; BP diastolic 61–79; PULSE 61–85; RESP 13–18; TEMP 36.2–36.7; O2SAT 92–100
[2020-01-14] MEDS: Phenobarbital 32.4 MG Tablet PO ×4 (02:43→16:48)
[2020-01-14 05:17] LABS: Absolute Lymphocyte Count 1.56 X10^3/uL (0.83-4.51); Absolute Neutrophil Count 3.6 X10^3/uL (2.0-7.7); Basophil# 0.02 X10^3/uL; Basophil% 0.3 % (0-1); Eosinophils% 1.7 % (0-5); Hematocrit 36.3 % (40-54); Hemoglobin 13.2 g/dL (13.0-16.5); Lymphocyte # 1.56 X10^3/ul (4.0); Lymphocyte % 26.7 % (19-41); Mean Corp Hgb Conc 36.4 g/dL (32-36); Mean Corpuscular Hgb 32.4 pg (27.0-32.0); Mean Platelet Vol. 9.7 fl (6.2-12.0); Monocyte# 0.52 X10^3/uL; Monocyte% 8.9 % (0-10); NRBC Flagged by Analyzer 0 % (0-5); Neutrophil # 3.61 X10^3/uL (2.7-7.7); Neutrophil % 61.7 % (47-70); Platelet Count 108 K/mm3 (150-450); RBC Distribution Width CV 13.1 % (11.6-14.6); RBC Distribution Width SD 42.7 fl (35.1-43.9); Red Blood Count 4.08 M/mm3 (4.6-6.2); White Blood Count 5.9 K/mm3 (4.4-11.0)
[2020-01-14 05:30] LABS: Anion Gap 5 (5-15); BUN 2 mg/dL (7-18); BUN/Creat Ratio 3.2 RATIO (10-20); Calcium,Total 7.9 mg/dL (8.5-10.1); Chloride 95 mmol/L (98-107); Creatinine, Serum 0.62 mg/dL (0.70-1.30); EST Glomerular Filtration Rate 142 mL/min (>60); Est Glom Filt Rate - Afr Amer 172 mL/min (>60); Estimated Creatinine Clearance 130.15 ml/min; Glucose 82 mg/dL (74-106); Sodium Level 124 mmol/L (136-145)
--- NOTE | 2020-01-14 07:58 | PCM.PN.INT ---
Subjective: Patient did well overnight. Patient did have significant CIWA scores, so Ativan and phenobarb taper were initiated. Patient has been having some hallucinations, but has remained hemodynamically stable. Patient has received significant potassium and fluid resuscitation overnight. General: Alert, Confused, Disoriented, - - Appears older than stated age. No conversational dyspnea. HEENT: Atraumatic, PERRLA, EOMI, Normocephalic, - - Slight scleral injection without icterus Oral: Moist Mucosa, No Gingival or Mucosal Lesions/ Ulcerations Neck: Supple, No JVD, No Nodes, Trachea Midline Lungs: No rhonchi, No wheeze, No rales, Diminished Cardiovascular: Regular rate, Regular Rhythm, Normal S1, Normal S2, No murmurs, No rub noted, No Gallop Abdomen: Bowel Sounds Present, Soft, Non Tender, Non-Distended Extremities: No clubbing, No cyanosis, No edema, Capillary Refill Less than 3 Seconds Skin: No rashes, No breakdown Musculoskeletal: No Tenderness to Palpation of Joints or Extremities Lymphatic: No Cervical, Supraclavicular, or Inguinal Adenopathy Neurological: Cranial nerves II-XII grossly intact, Neuro grossly intact, Motor Exam 5/5 strength throughout Psych/Mental Status: Impulsive, Restless Vital Signs Temp Pulse Resp BP Pulse Ox 36.6 C 67 17 109/61 96 01/14/20 06:00 01/14/20 07:00 01/14/20 06:00 01/14/20 06:00 01/14/20 06:00 Oxygen Delivery Method Room Air Weight: 67.8 kg Body Mass Index (BMI) 22.2 Intake and Output for Last 24 Hours 01/12/20 01/13/20 01/14/20 23:59 23:59 23:59 Intake Total 3986.67 / 4226.67 480 / 480 Output Total 3300 / 3700 900 / 900 Balance 686.67 / 526.67 -420 / -420 Labs (Last 48 Hours) 01/12/20 01/12/20 01/12/20 22:50 23:50 23:50 WBC 6.0 RBC 4.59 L Hgb 15.0 Hct 38.8 L MCV 84.5 MCH 32.7 H MCHC 38.7 H RDW Std Deviation 37.2 RDW Coeff of Leonel 12.2 Plt Count 107 L MPV 9.7 Immature Gran % (Auto) 0.500 Neut % (Auto) 46.5 L Lymph % (Auto) 39.7 [place] % (Auto) 9.9 Eos % (Auto) 2.9 Baso % (Auto) 0.5 Absolute Neuts (auto) 2.8 Absolute Lymphs (auto) 2.36 Nucleated RBC % 0 Differential Comment COMMENT Diff Path Review May foll Platelet Estimate SLT DEC Rouleaux 1+ PT 12.7 INR 1.0 Sodium Potassium Chloride Carbon Dioxide Anion Gap BUN Creatinine Estim Creat Clear Calc Est GFR (MDRD) Af Amer Est GFR (MDRD) Non-Af BUN/Creatinine Ratio Glucose Serum Osmolality 227 L Calcium Phosphorus Magnesium Total Bilirubin AST ALT Alkaline Phosphatase Troponin I Total Protein Total Protein (PEP) Albumin Albumin (PEP) Globulin Globulin (PEP) Albumin/Globulin Ratio Albumin/Globulin (PEP) Eytoa-7-Nthcyegcr Mlsox-8-Glroupwap Beta Globulins Gamma Globulins M-Sahil TSH Cortisol Urine Color Urine Clarity Urine pH Ur Specific [place] Urine Protein Urine Glucose (UA) Urine Ketones Urine Occult Blood Urine Nitrite Urine Bilirubin Urine Urobilinogen Ur Leukocyte Esterase Urine RBC Urine WBC Ur Squamous Epith Cells Urine Bacteria Urine Mucus Urine Osmolality Ur Random Sodium Urine Creatinine Urine Urea Nitrogen Urine Total Protein Urine Albumin U Rmcaf-5-Trdmwcek U Boopg-1-Sijqojwd U Beta Globulin U Gamma Globulin U PEP M-Sahil Urine Opiates Screen Urine Methadone Screen Ur Barbiturates Screen Ur Phencyclidine Scrn Ur Amphetamines Screen U Methamphetamin-MDMA U Benzodiazepines Scrn Urine Cocaine Screen U Cannabinoids Screen Ur Drug Screen Comment Ethyl Alcohol COVID-19 ([facility]) 01/12/20 01/12/20 01/12/20 23:50 23:50 23:50 WBC RBC Hgb Hct MCV MCH MCHC RDW Std Deviation RDW Coeff of Leonel Plt Count MPV Immature Gran % (Auto) Neut % (Auto) Lymph % (Auto) [place] % (Auto) Eos % (Auto) Baso % (Auto) Absolute Neuts (auto) Absolute Lymphs (auto) Nucleated RBC % Differential Comment Diff Path Review Platelet Estimate Rouleaux PT INR Sodium 112 L* Potassium 2.7 L* Chloride 72 L* Carbon Dioxide 31.0 Anion Gap 9 BUN 5 L Creatinine 0.78 Estim Creat Clear Calc 103.68 Est GFR (MDRD) Af Amer 132 Est GFR (MDRD) Non-Af 109 BUN/Creatinine Ratio 6.4 L Glucose 118 H Serum Osmolality Calcium 8.5 Phosphorus Magnesium Total Bilirubin 1.00 AST 51 H ALT 48 Alkaline Phosphatase 95 Troponin I < 0.015 Total Protein 7.3 Total Protein (PEP) Albumin 3.8 Albumin (PEP) Globulin 3.5 Globulin (PEP) Albumin/Globulin Ratio 1.1 Albumin/Globulin (PEP) Fecfb-1-Ppexumpyi Lzqwm-2-Ztuysnzwh Beta Globulins Gamma Globulins M-Sahil TSH 2.66 Cortisol Urine Color Urine Clarity Urine pH Ur Specific [place] Urine Protein Urine Glucose (UA) Urine Ketones Urine Occult Blood Urine Nitrite Urine Bilirubin Urine Urobilinogen Ur Leukocyte Esterase Urine RBC Urine WBC Ur Squamous Epith Cells Urine Bacteria Urine Mucus Urine Osmolality Ur Random Sodium Urine Creatinine Urine Urea Nitrogen Urine Total Protein Urine Albumin U Krntq-7-Gawjwuid U Fmlxl-1-Vmerenws U Beta Globulin U Gamma Globulin U PEP M-Sahil Urine Opiates Screen Urine Methadone Screen Ur Barbiturates Screen Ur Phencyclidine Scrn Ur Amphetamines Screen U Methamphetamin-MDMA U Benzodiazepines Scrn Urine Cocaine Screen U Cannabinoids Screen Ur Drug Screen Comment Ethyl Alcohol < 3.0 COVID-19 ([facility]) 01/13/20 01/13/20 01/13/20 01:00 01:05 01:05 WBC RBC Hgb Hct MCV MCH MCHC RDW Std Deviation RDW Coeff of Leonel Plt Count MPV Immature Gran % (Auto) Neut % (Auto) Lymph % (Auto) [place] % (Auto) Eos % (Auto) Baso % (Auto) Absolute Neuts (auto) Absolute Lymphs (auto) Nucleated RBC % Differential Comment Diff Path Review Platelet Estimate Rouleaux PT INR Sodium Potassium Chloride Carbon Dioxide Anion Gap BUN Creatinine Estim Creat Clear Calc Est GFR (MDRD) Af Amer Est GFR (MDRD) Non-Af BUN/Creatinine Ratio Glucose Serum Osmolality Calcium Phosphorus Magnesium Total Bilirubin AST ALT Alkaline Phosphatase Troponin I Total Protein Total Protein (PEP) Albumin Albumin (PEP) Globulin Globulin (PEP) Albumin/Globulin Ratio Albumin/Globulin (PEP) Cfbaw-1-Mljnzbzrb Tphxa-7-Rixxdmuwe Beta Globulins Gamma Globulins M-Sahil TSH Cortisol Urine Color Yellow Urine Clarity Clear Urine pH 7.0 Ur Specific [place] 1.010 Urine Protein Negative Urine Glucose (UA) Normal Urine Ketones Negative Urine Occult Blood 10 H Urine Nitrite Negative Urine Bilirubin Negative Urine Urobilinogen Normal Ur Leukocyte Esterase Negative Urine RBC 0 SEEN Urine WBC 0 SEEN Ur Squamous Epith Cells 0 SEEN Urine Bacteria 0 SEEN Urine Mucus 0 SEEN Urine Osmolality Ur Random Sodium Urine Creatinine Urine Urea Nitrogen Urine Total Protein Urine Albumin U Bxdcc-4-Qlrviavg U Oltwi-6-Fnoplonk U Beta Globulin U Gamma Globulin U PEP M-Sahil Urine Opiates Screen NEGATIVE Urine Methadone Screen NEGATIVE Ur Barbiturates Screen NEGATIVE Ur Phencyclidine Scrn NEGATIVE Ur Amphetamines Screen NEGATIVE U Methamphetamin-MDMA NEGATIVE U Benzodiazepines Scrn NEGATIVE Urine Cocaine Screen NEGATIVE U Cannabinoids Screen POSITIVE H Ur Drug Screen Comment Ethyl Alcohol COVID-19 ([facility]) Negative 01/13/20 01/13/20 01/13/20 01:05 01:05 01:05 WBC RBC Hgb Hct MCV MCH MCHC RDW Std Deviation RDW Coeff of Leonel Plt Count MPV Immature Gran % (Auto) Neut % (Auto) Lymph % (Auto) [place] % (Auto) Eos % (Auto) Baso % (Auto) Absolute Neuts (auto) Absolute Lymphs (auto) Nucleated RBC % Differential Comment Diff Path Review Platelet Estimate Rouleaux PT INR Sodium Potassium Chloride Carbon Dioxide Anion Gap BUN Creatinine Estim Creat Clear Calc Est GFR (MDRD) Af Amer Est GFR (MDRD) Non-Af BUN/Creatinine Ratio Glucose Serum Osmolality Calcium Phosphorus Magnesium Total Bilirubin AST ALT Alkaline Phosphatase Troponin I Total Protein Total Protein (PEP) Albumin Albumin (PEP) Globulin Globulin (PEP) Albumin/Globulin Ratio Albumin/Globulin (PEP) Deldw-0-Ydxwzxxok Byxqt-2-Awhzzxgwt Beta Globulins Gamma Globulins M-Sahil TSH Cortisol Urine Color Urine Clarity Urine pH Ur Specific [place] Urine Protein Urine Glucose (UA) Urine Ketones Urine Occult Blood Urine Nitrite Urine Bilirubin Urine Urobilinogen Ur Leukocyte Esterase Urine RBC Urine WBC Ur Squamous Epith Cells Urine Bacteria Urine Mucus Urine Osmolality 114 Ur Random Sodium 11 Urine Creatinine Urine Urea Nitrogen Urine Total Protein Pending Urine Albumin Pending U Hrfst-8-Bachpqeb Pending U Johpl-3-Bwcuyizc Pending U Beta Globulin Pending U Gamma Globulin Pending U PEP M-Sahil Pending Urine Opiates Screen Urine Methadone Screen Ur Barbiturates Screen Ur Phencyclidine Scrn Ur Amphetamines Screen U Methamphetamin-MDMA U Benzodiazepines Scrn Urine Cocaine Screen U Cannabinoids Screen Ur Drug Screen Comment Ethyl Alcohol COVID-19 ([facility]) 07/01/13/20 01/13/20 01:05 01:05 01:55 WBC RBC Hgb Hct MCV MCH MCHC RDW Std Deviation RDW Coeff of Leonel Plt Count MPV Immature Gran % (Auto) Neut % (Auto) Lymph % (Auto) [place] % (Auto) Eos % (Auto) Baso % (Auto) Absolute Neuts (auto) Absolute Lymphs (auto) Nucleated RBC % Differential Comment Diff Path Review Platelet Estimate Rouleaux PT INR Sodium Potassium Chloride Carbon Dioxide Anion Gap BUN Creatinine Estim Creat Clear Calc Est GFR (MDRD) Af Amer Est GFR (MDRD) Non-Af BUN/Creatinine Ratio Glucose Serum Osmolality Calcium Phosphorus Magnesium Total Bilirubin AST ALT Alkaline Phosphatase Troponin I Total Protein Total Protein (PEP) Pending Albumin Albumin (PEP) Pending Globulin Globulin (PEP) Pending Albumin/Globulin Ratio Albumin/Globulin (PEP) Pending Feavc-0-Hpbnmdpgq Pending Hdwde-0-Xcefycomn Pending Beta Globulins Pending Gamma Globulins Pending M-Sahil Pending TSH Cortisol Urine Color Urine Clarity Urine pH Ur Specific [place] Urine Protein Urine Glucose (UA) Urine Ketones Urine Occult Blood Urine Nitrite Urine Bilirubin Urine Urobilinogen Ur Leukocyte Esterase Urine RBC Urine WBC Ur Squamous Epith Cells Urine Bacteria Urine Mucus Urine Osmolality Ur Random Sodium Urine Creatinine 39.10 Urine Urea Nitrogen 117 Urine Total Protein Cancelled Urine Albumin Cancelled U Vkimc-8-Xgfgmxsh Cancelled U Yyzek-9-Lkgabpff Cancelled U Beta Globulin Cancelled U Gamma Globulin Cancelled U PEP M-Sahil Cancelled Urine Opiates Screen Urine Methadone Screen Ur Barbiturates Screen Ur Phencyclidine Scrn Ur Amphetamines Screen U Methamphetamin-MDMA U Benzodiazepines Scrn Urine Cocaine Screen U Cannabinoids Screen Ur Drug Screen Comment Ethyl Alcohol COVID-19 ([facility]) 01/13/20 01/13/20 01/13/20 08:30 08:30 08:30 WBC 5.8 RBC 4.59 L Hgb 14.9 Hct 39.8 L MCV 86.7 MCH 32.5 H MCHC 37.4 H RDW Std Deviation 39.9 RDW Coeff of Leonel 12.8 Plt Count 108 L MPV 9.9 Immature Gran % (Auto) 0.300 Neut % (Auto) 64.8 Lymph % (Auto) 23.1 [place] % (Auto) 10.1 H Eos % (Auto) 1.4 Baso % (Auto) 0.3 Absolute Neuts (auto) 3.7 Absolute Lymphs (auto) 1.33 Nucleated RBC % 0 Differential Comment Diff Path Review Platelet Estimate Rouleaux PT INR Sodium Potassium Chloride Carbon Dioxide Anion Gap BUN Creatinine Estim Creat Clear Calc Est GFR (MDRD) Af Amer Est GFR (MDRD) Non-Af BUN/Creatinine Ratio Glucose Serum Osmolality Calcium Phosphorus Magnesium 2.4 Total Bilirubin AST ALT Alkaline Phosphatase Troponin I Total Protein Total Protein (PEP) Albumin Albumin (PEP) Globulin Globulin (PEP) Albumin/Globulin Ratio Albumin/Globulin (PEP) Iwzzv-6-Cmvedtgwg Iqqhe-3-Iglflzwvf Beta Globulins Gamma Globulins M-Sahil TSH Cortisol 16.90 Urine Color Urine Clarity Urine pH Ur Specific [place] Urine Protein Urine Glucose (UA) Urine Ketones Urine Occult Blood Urine Nitrite Urine Bilirubin Urine Urobilinogen Ur Leukocyte Esterase Urine RBC Urine WBC Ur Squamous Epith Cells Urine Bacteria Urine Mucus Urine Osmolality Ur Random Sodium Urine Creatinine Urine Urea Nitrogen Urine Total Protein Urine Albumin U Sajeu-8-Qbhdqypj U Icciz-2-Hzcpznzv U Beta Globulin U Gamma Globulin U PEP M-Sahil Urine Opiates Screen Urine Methadone Screen Ur Barbiturates Screen Ur Phencyclidine Scrn Ur Amphetamines Screen U Methamphetamin-MDMA U Benzodiazepines Scrn Urine Cocaine Screen U Cannabinoids Screen Ur Drug Screen Comment Ethyl Alcohol COVID-19 ([facility]) 01/13/20 01/13/20 01/13/20 08:30 08:30 16:00 WBC RBC Hgb Hct MCV MCH MCHC RDW Std Deviation RDW Coeff of Leonel Plt Count MPV Immature Gran % (Auto) Neut % (Auto) Lymph % (Auto) [place] % (Auto) Eos % (Auto) Baso % (Auto) Absolute Neuts (auto) Absolute Lymphs (auto) Nucleated RBC % Differential Comment Diff Path Review Platelet Estimate Rouleaux PT INR Sodium 120 L 124 L Potassium 3.0 L 3.2 L Chloride 86 L 90 L Carbon Dioxide 32.0 30.0 Anion Gap 2 L 4 L BUN 3 L 3 L Creatinine 0.67 L 0.71 Estim Creat Clear Calc 120.44 113.65 Est GFR (MDRD) Af Amer 157 147 Est GFR (MDRD) Non-Af 130 122 BUN/Creatinine Ratio 4.5 L 4.2 L Glucose 91 102 Serum Osmolality Calcium 8.0 L 7.9 L Phosphorus 1.8 L Magnesium Total Bilirubin AST ALT Alkaline Phosphatase Troponin I Total Protein Total Protein (PEP) Albumin Albumin (PEP) Globulin Globulin (PEP) Albumin/Globulin Ratio Albumin/Globulin (PEP) Pggtv-3-Rzcyicnfb Ndjpf-4-Jpgbxvhtw Beta Globulins Gamma Globulins M-Sahil TSH Cortisol Urine Color Urine Clarity Urine pH Ur Specific [place] Urine Protein Urine Glucose (UA) Urine Ketones Urine Occult Blood Urine Nitrite Urine Bilirubin Urine Urobilinogen Ur Leukocyte Esterase Urine RBC Urine WBC Ur Squamous Epith Cells Urine Bacteria Urine Mucus Urine Osmolality Ur Random Sodium Urine Creatinine Urine Urea Nitrogen Urine Total Protein Urine Albumin U Wfkza-0-Gbmczpgi U Szhqi-2-Nugohcts U Beta Globulin U Gamma Globulin U PEP M-Sahil Urine Opiates Screen Urine Methadone Screen Ur Barbiturates Screen Ur Phencyclidine Scrn Ur Amphetamines Screen U Methamphetamin-MDMA U Benzodiazepines Scrn Urine Cocaine Screen U Cannabinoids Screen Ur Drug Screen Comment Ethyl Alcohol COVID-19 ([facility]) 01/13/20 01/13/20 01/14/20 19:59 19:59 05:05 WBC RBC Hgb Hct MCV MCH MCHC RDW Std Deviation RDW Coeff of Leonel Plt Count MPV Immature Gran % (Auto) Neut % (Auto) Lymph % (Auto) [place] % (Auto) Eos % (Auto) Baso % (Auto) Absolute Neuts (auto) Absolute Lymphs (auto) Nucleated RBC % Differential Comment Diff Path Review Platelet Estimate Rouleaux PT INR Sodium 125 L 124 L Potassium 3.1 L 4.0 Chloride 91 L 95 L Carbon Dioxide 29.0 24.0 Anion Gap 5 5 BUN 3 L 2 L Creatinine 0.70 0.62 L Estim Creat Clear Calc 115.28 130.15 Est GFR (MDRD) Af Amer 150 172 Est GFR (MDRD) Non-Af 124 142 BUN/Creatinine Ratio 4.3 L 3.2 L Glucose 82 82 Serum Osmolality Calcium 7.8 L 7.9 L Phosphorus 2.5 Magnesium Total Bilirubin AST ALT Alkaline Phosphatase Troponin I Total Protein Total Protein (PEP) Albumin Albumin (PEP) Globulin Globulin (PEP) Albumin/Globulin Ratio Albumin/Globulin (PEP) Lfmfz-2-Qvftrsqrm Lramx-0-Icgqjfxqt Beta Globulins Gamma Globulins M-Sahil TSH Cortisol Urine Color Urine Clarity Urine pH Ur Specific [place] Urine Protein Urine Glucose (UA) Urine Ketones Urine Occult Blood Urine Nitrite Urine Bilirubin Urine Urobilinogen Ur Leukocyte Esterase Urine RBC Urine WBC Ur Squamous Epith Cells Urine Bacteria Urine Mucus Urine Osmolality Ur Random Sodium Urine Creatinine Urine Urea Nitrogen Urine Total Protein Urine Albumin U Gmcsd-9-Qafyfsig U Tpnhf-8-Vgxdaepg U Beta Globulin U Gamma Globulin U PEP M-Sahil Urine Opiates Screen Urine Methadone Screen Ur Barbiturates Screen Ur Phencyclidine Scrn Ur Amphetamines Screen U Methamphetamin-MDMA U Benzodiazepines Scrn Urine Cocaine Screen U Cannabinoids Screen Ur Drug Screen Comment Ethyl Alcohol COVID-19 ([facility]) 01/14/20 05:05 WBC 5.9 RBC 4.08 L Hgb 13.2 Hct 36.3 L MCV 89.0 MCH 32.4 H MCHC 36.4 H RDW Std Deviation 42.7 RDW Coeff of Leonel 13.1 Plt Count 108 L MPV 9.7 Immature Gran % (Auto) 0.700 Neut % (Auto) 61.7 Lymph % (Auto) 26.7 [place] % (Auto) 8.9 Eos % (Auto) 1.7 Baso % (Auto) 0.3 Absolute Neuts (auto) 3.6 Absolute Lymphs (auto) 1.56 Nucleated RBC % 0 Differential Comment Diff Path Review Platelet Estimate Rouleaux PT INR Sodium Potassium Chloride Carbon Dioxide Anion Gap BUN Creatinine Estim Creat Clear Calc Est GFR (MDRD) Af Amer Est GFR (MDRD) Non-Af BUN/Creatinine Ratio Glucose Serum Osmolality Calcium Phosphorus Magnesium Total Bilirubin AST ALT Alkaline Phosphatase Troponin I Total Protein Total Protein (PEP) Albumin Albumin (PEP) Globulin Globulin (PEP) Albumin/Globulin Ratio Albumin/Globulin (PEP) Allwn-8-Nzbupolmc Jbtdy-4-Pvjsfvozh Beta Globulins Gamma Globulins M-Sahil TSH Cortisol Urine Color Urine Clarity Urine pH Ur Specific [place] Urine Protein Urine Glucose (UA) Urine Ketones Urine Occult Blood Urine Nitrite Urine Bilirubin Urine Urobilinogen Ur Leukocyte Esterase Urine RBC Urine WBC Ur Squamous Epith Cells Urine Bacteria Urine Mucus Urine Osmolality Ur Random Sodium Urine Creatinine Urine Urea Nitrogen Urine Total Protein Urine Albumin U Orrai-5-Qkwmleii U Sfdgs-6-Fzyhnbmw U Beta Globulin U Gamma Globulin U PEP M-Sahil Urine Opiates Screen Urine Methadone Screen Ur Barbiturates Screen Ur Phencyclidine Scrn Ur Amphetamines Screen U Methamphetamin-MDMA U Benzodiazepines Scrn Urine Cocaine Screen U Cannabinoids Screen Ur Drug Screen Comment Ethyl Alcohol COVID-19 ([facility]) Medical Necessity - Tobacco Use Smoking Status: Current every day smoker Tobacco Use: Cigarettes Assessment/Plan All Active Problems (Last Reviewed 01/13/20 @ 02:[address] Guillaume Jordan MD) Confusion (Acute) Hypokalemia (Acute) Acute metabolic encephalopathy (Acute) Hyponatremia (Acute) RECOMMENDATIONS: 1. Continue slow volume resuscitation 2. Aggressive electrolyte repletion as indicated 3. CIWA protocol with phenobarbital taper 4. Okay to leave the intensive care unit from my perspective 5. Hemodynamically stable on room air. Will sign off from a critical care perspective IMPRESSIONS: 1. Acute metabolic encephalopathy secondary to hypovolemic hyponatremia Patient receiving volume resuscitation at this time. Likely okay to transition to daily BMP. Patient will likely require significant electrolyte repletion throughout hospitalization given alcoholism. Continue with seizure precautions. Okay to transfer from the intensive care unit from my perspective. Patient remains hemodynamically stable on room air. Will sign off from critical care perspective 2. Hypokalemia/hypochloremia/probable refeeding syndrome Continue with aggressive supplementation. Anticipate patient will require significant potassium to replete stores, especially when patient starts to take p.o. Patient is receiving thiamine and folate. 3. Alcohol abuse Unclear true volume intake. Patient states his last drink was 30 hours prior to admission. Patient is on CIWA protocol. Patient was initiated on phenobarb taper overnight and appears to be tolerating this well. Patient reportedly has an appointment with the [facility] in 2 weeks. 4. Head contusion/hypertension/poor historian/poor primary care follow-up Complicates care, management, recovery and prognosis. Patient reportedly did have rouleaux formation of blood. Electrophoresis has been sent. Inpatient E&M: [id number] Subs Hosp L3
[2020-01-14] MEDS: LORazepam 1 MG Tablet 2 MG PO (08:23)
[2020-01-14] MEDS: Folic Acid 1 MG Tablet PO (08:24)
[2020-01-14] MEDS: Thiamine Hydrochloride 100 MG Tablet PO ×2 (08:24→16:46)
[2020-01-14] MEDS: Multivitamins,Ther W-Minerals Tablet 1 TABLET PO (08:24)
[2020-01-14] MEDS: Lisinopril 20 MG Tablet PO (08:25)
[2020-01-14] MEDS: Enoxaparin 40 MG/0.4 ML Syringe SC (08:25)
[2020-01-14] MEDS: LORazepam 2 MG/ML Syringe IV ×2 (10:40→18:19)
[2020-01-14] MEDS: Potassium Chloride 40 MEQ in 0.9% Normal Saline 1,000 ML 75 MEQ IV (12:19)
--- NOTE | 2020-01-14 12:46 | PN_ITS ---
<Kranthi Stephens - Last Filed: 01/14/20 12:46> Patient Problems: Active and Suspected Problems (Last Reviewed 01/13/20 @ 02:[address] Guillaume Jordan MD) Confusion (Acute) Hypokalemia (Acute) Acute metabolic encephalopathy (Acute) Hyponatremia (Acute) Reason for Visit: Hyponatremia, AMS Subjective: Pt with increased withdrawal symptoms last night and initiated on phenobarb. Today improved with no complaints. Denies active tremor, anxiety, nausea, hallucinations. Pt ambulated in oliva with no dizziness/LH. No cough/SOB. No fever/chills. Good PO intake. Vitals/I&O's: Vital Signs Temp Pulse Resp BP Pulse Ox 97.6 F L 70 14 103/63 95 01/14/20 11:54 01/14/20 11:54 01/14/20 11:54 01/14/20 11:54 01/14/20 11:54 Oxygen Flow Rate (L/min) 2 Oxygen Delivery Method Nasal Cannula Weight: 149 lb 7.574 oz Body Mass Index (BMI) 22.2 Intake and Output for Last 24 Hours 01/12/20 01/13/20 01/14/20 23:59 23:59 23:59 Intake Total 3986.67 / 4226.67 1500 / 1500 Output Total 3300 / 3700 900 / 900 Balance 686.67 / 526.67 600 / 600 General: Alert, Oriented x3, Cooperative HEENT: Atraumatic, PERRLA, EOMI, Normocephalic Neck: Supple, No JVD, Negative Carotid Bruits Lungs: Clear to auscultation, Normal air movement Cardiovascular: Regular rate, No murmurs Abdomen: Bowel Sounds Present, Soft, Non Tender Extremities: No edema, Capillary Refill Less than 3 Seconds Skin: No rashes, No breakdown Musculoskeletal: No Tenderness to Palpation of Joints or Extremities Neurological: Cranial nerves II-XII grossly intact Psych/Mental Status: Normal Affect, Appropriate, Alert and oriented to time, place, person, mood and affect Laboratory Results 01/13/20 16:00: Sodium 124 L, Potassium 3.2 L, Chloride 90 L, Carbon Dioxide 30.0, Anion Gap 4 L, BUN 3 L, Creatinine 0.71, Estim Creat Clear Calc 113.65, Est GFR (MDRD) Af Amer 147, Est GFR (MDRD) Non-Af 122, BUN/Creatinine Ratio 4.2 L, Glucose 102, Calcium 7.9 L 01/13/20 19:59: Sodium 125 L, Potassium 3.1 L, Chloride 91 L, Carbon Dioxide 29.0, Anion Gap 5, BUN 3 L, Creatinine 0.70, Estim Creat Clear Calc 115.28, Est GFR (MDRD) Af Amer 150, Est GFR (MDRD) Non-Af 124, BUN/Creatinine Ratio 4.3 L, Glucose 82, Calcium 7.8 L 01/13/20 19:59: Phosphorus 2.5 01/14/20 05:05: Sodium 124 L, Potassium 4.0, Chloride 95 L, Carbon Dioxide 24.0, Anion Gap 5, BUN 2 L, Creatinine 0.62 L, Estim Creat Clear Calc 130.15, Est GFR (MDRD) Af Amer 172, Est GFR (MDRD) Non-Af 142, BUN/Creatinine Ratio 3.2 L, Glucose 82, Calcium 7.9 L 01/14/20 05:05: WBC 5.9, RBC 4.08 L, Hgb 13.2, Hct 36.3 L, MCV 89.0, MCH 32.4 H, MCHC 36.4 H, RDW Std Deviation 42.7, RDW Coeff of Leonel 13.1, Plt Count 108 L, MPV 9.7, Immature Gran % (Auto) 0.700, Neut % (Auto) 61.7, Lymph % (Auto) 26.7, Lane % (Auto) 8.9, Eos % (Auto) 1.7, Baso % (Auto) 0.3, Absolute Neuts (auto) 3.6, Absolute Lymphs (auto) 1.56, Nucleated RBC % 0 Current Medications Acetaminophen (Tylenol) 650 mg PO Q6H PRN PRN PRN Reason: Pain Score 1-10/Temp > 100.7 F Dextrose (D50w Syringe) 0 gm IV X1 PRN; Protocol PRN Reason: Hypoglycemia Enoxaparin Sodium (Lovenox) 40 mg SC DAILY [facility] Last Admin: 01/14/20 08:25 Dose: 40 mg Documented by: Folic Acid (Folic Acid) 1 mg PO DAILY@0800 [facility] Stop: 01/15/20 08:01 Last Admin: 01/14/20 08:24 Dose: 1 mg Documented by: Glucagon () 1 mg IM .X1 PRN PRN Reason: Hypoglycemia Sodium Chloride () 1,000 mls @ 15 mls/hr IV .Q48H [facility] Last Admin: 01/13/20 08:20 Dose: Not Given Documented by: Sodium Chloride () 250 mls @ 15 mls/hr IV .[id number] PRN PRN Reason: Saline Flush Sodium Chloride () 250 mls @ 15 mls/hr IV .[id number] PRN PRN Reason: Additional IVPB Infusion Potassium Chloride 40 meq/ (Sodium Chloride) 1,020 mls @ 75 mls/hr IV .[id number] [facility] Last Admin: 01/14/20 12:19 Dose: 75 mls/hr Documented by: Lisinopril (Zestril) 20 mg PO DAILY [facility] Last Admin: 01/14/20 08:25 Dose: 20 mg Documented by: Lorazepam (Ativan) 2 mg PO Q2H PRN PRN; Protocol PRN Reason: CIWA score > 8 but <15 Last Admin: 01/14/20 08:23 Dose: 2 mg Documented by: Lorazepam (Ativan) 2 mg PO UD PRN; Protocol PRN Reason: CIWA score >/=15. Lorazepam (Ativan) 2 mg IV Q2H PRN PRN; Protocol PRN Reason: CIWA score > 8 but <15 Last Admin: 01/14/20 10:40 Dose: 2 mg Documented by: Lorazepam (Ativan) 2 mg IV UD PRN; Protocol PRN Reason: CIWA score >/=15. Lorazepam (Ativan) 2 mg IV Q2H PRN PRN PRN Reason: SEIZURES Multivitamins/Minerals (Multivitamin With Minerals (Bkc)) 1 tablet PO DAILYCM [facility] Last Admin: 01/14/20 08:24 Dose: 1 tablet Documented by: Nicotine (Nicoderm Cq (Pbkc)) 14 mg TRANSDERM. DAILY [facility] Last Admin: 01/14/20 08:24 Dose: Not Given Documented by: Ondansetron HCl (Zofran) 4 mg IV Q8H PRN PRN PRN Reason: NAUSEA/VOMITING Phenobarbital (Phenobarbital) 97.2 mg PO Q4H [facility]; Taper Stop: 01/18/20 02:44 Last Admin: 01/14/20 09:48 Dose: 97.2 mg Documented by: Sodium Chloride () 10 - 40 ml IV UD PRN PRN Reason: SALINE FLUSH Last Admin: 01/13/20 22:00 Dose: 10 ml Documented by: Sodium Chloride () 10 - 40 ml IV UD PRN PRN Reason: SALINE FLUSH Thiamine HCl (Vitamin B1) 100 mg PO BIDCM [facility] Stop: 01/15/20 17:01 Last Admin: 01/14/20 08:24 Dose: 100 mg Documented by: STROKE Vital Signs/Narrative: Vital Signs Temp Pulse Resp BP Pulse Ox 01/14/20 11:54 97.6 F L 70 14 103/63 95 Medical Necessity - Tobacco Use Smoking Status: Current every day smoker Tobacco Use: Cigarettes Assessment/Plan All Active Problems (Last Reviewed 01/13/20 @ 02:[address] Guillaume Jordan MD) Confusion (Acute) Hypokalemia (Acute) Acute metabolic encephalopathy (Acute) Hyponatremia (Acute) 1. Acute metabolic encephalopathy 2/2 acute on chronic hyponatremia - encephalopathy resolved. Na and K improving. Likely this is beer potomania. drinks 8 beers at once when he gets off work nightly. Mag normal. Phos normalized. K normalized. CT C spine without acute fx. CT brain neg. CXR shows mild COPD/emphysema. TSH and cortisol nl. UA neg, urine proteins pending, urine Na 11. HCTZ discontinued. -Continue gentle hydration with NS. BMP in AM. 2. Alcoholism - CIWA protocol, phenobarb taper, ativan. tox screen + for THC. 3. Tobacco abuse - <1/2 ppd. continue patch. 4. HTN - HCTZ discontinued. Continue lisinopril. BP normal. DVT ppx: lovenox DC planning: referral to 180 program This patient was seen by Kranthi Stephens PA-C under the supervision of Doctor Sherin. <Naren Duff - Last Filed: 01/14/20 12:55> Vitals/I&O's: Vital Signs Temp Pulse Resp BP Pulse Ox 97.6 F L 70 14 103/63 95 01/14/20 11:54 01/14/20 11:54 01/14/20 11:54 01/14/20 11:54 01/14/20 11:54 Oxygen Flow Rate (L/min) 2 Oxygen Delivery Method Nasal Cannula Weight: 149 lb 7.574 oz Body Mass Index (BMI) 22.2 Intake and Output for Last 24 Hours 01/12/20 01/13/20 01/14/20 23:59 23:59 23:59 Intake Total 3986.67 / 4226.67 1500 / 1500 Output Total 3300 / 3700 900 / 900 Balance 686.67 / 526.67 600 / 600 Laboratory Results 01/13/20 16:00: Sodium 124 L, Potassium 3.2 L, Chloride 90 L, Carbon Dioxide 30.0, Anion Gap 4 L, BUN 3 L, Creatinine 0.71, Estim Creat Clear Calc 113.65, Est GFR (MDRD) Af Amer 147, Est GFR (MDRD) Non-Af 122, BUN/Creatinine Ratio 4.2 L, Glucose 102, Calcium 7.9 L 01/13/20 19:59: Sodium 125 L, Potassium 3.1 L, Chloride 91 L, Carbon Dioxide 29.0, Anion Gap 5, BUN 3 L, Creatinine 0.70, Estim Creat Clear Calc 115.28, Est GFR (MDRD) Af Amer 150, Est GFR (MDRD) Non-Af 124, BUN/Creatinine Ratio 4.3 L, Glucose 82, Calcium 7.8 L 01/13/20 19:59: Phosphorus 2.5 01/14/20 05:05: Sodium 124 L, Potassium 4.0, Chloride 95 L, Carbon Dioxide 24.0, Anion Gap 5, BUN 2 L, Creatinine 0.62 L, Estim Creat Clear Calc 130.15, Est GFR (MDRD) Af Amer 172, Est GFR (MDRD) Non-Af 142, BUN/Creatinine Ratio 3.2 L, Glucose 82, Calcium 7.9 L 01/14/20 05:05: WBC 5.9, RBC 4.08 L, Hgb 13.2, Hct 36.3 L, MCV 89.0, MCH 32.4 H, MCHC 36.4 H, RDW Std Deviation 42.7, RDW Coeff of Leonel 13.1, Plt Count 108 L, MPV 9.7, Immature Gran % (Auto) 0.700, Neut % (Auto) 61.7, Lymph % (Auto) 26.7, Lane % (Auto) 8.9, Eos % (Auto) 1.7, Baso % (Auto) 0.3, Absolute Neuts (auto) 3.6, Absolute Lymphs (auto) 1.56, Nucleated RBC % 0 Current Medications Acetaminophen (Tylenol) 650 mg PO Q6H PRN PRN PRN Reason: Pain Score 1-10/Temp > 100.7 F Dextrose (D50w Syringe) 0 gm IV X1 PRN; Protocol PRN Reason: Hypoglycemia Enoxaparin Sodium (Lovenox) 40 mg SC DAILY [facility] Last Admin: 01/14/20 08:25 Dose: 40 mg Documented by: Folic Acid (Folic Acid) 1 mg PO DAILY@0800 [facility] Stop: 01/15/20 08:01 Last Admin: 01/14/20 08:24 Dose: 1 mg Documented by: Glucagon () 1 mg IM .X1 PRN PRN Reason: Hypoglycemia Sodium Chloride () 1,000 mls @ 15 mls/hr IV .Q48H [facility] Last Admin: 01/13/20 08:20 Dose: Not Given Documented by: Sodium Chloride () 250 mls @ 15 mls/hr IV .[id number] PRN PRN Reason: Saline Flush Sodium Chloride () 250 mls @ 15 mls/hr IV .[id number] PRN PRN Reason: Additional IVPB Infusion Potassium Chloride 40 meq/ (Sodium Chloride) 1,020 mls @ 75 mls/hr IV .[id number] [facility] Last Admin: 01/14/20 12:19 Dose: 75 mls/hr Documented by: Lisinopril (Zestril) 20 mg PO DAILY [facility] Last Admin: 01/14/20 08:25 Dose: 20 mg Documented by: Lorazepam (Ativan) 2 mg PO Q2H PRN PRN; Protocol PRN Reason: CIWA score > 8 but <15 Last Admin: 01/14/20 08:23 Dose: 2 mg Documented by: Lorazepam (Ativan) 2 mg PO UD PRN; Protocol PRN Reason: CIWA score >/=15. Lorazepam (Ativan) 2 mg IV Q2H PRN PRN; Protocol PRN Reason: CIWA score > 8 but <15 Last Admin: 01/14/20 10:40 Dose: 2 mg Documented by: Lorazepam (Ativan) 2 mg IV UD PRN; Protocol PRN Reason: CIWA score >/=15. Lorazepam (Ativan) 2 mg IV Q2H PRN PRN PRN Reason: SEIZURES Multivitamins/Minerals (Multivitamin With Minerals (Bkc)) 1 tablet PO DAILYCM [facility] Last Admin: 01/14/20 08:24 Dose: 1 tablet Documented by: Nicotine (Nicoderm Cq (Pbkc)) 14 mg TRANSDERM. DAILY [facility] Last Admin: 01/14/20 08:24 Dose: Not Given Documented by: Ondansetron HCl (Zofran) 4 mg IV Q8H PRN PRN PRN Reason: NAUSEA/VOMITING Phenobarbital (Phenobarbital) 97.2 mg PO Q4H [facility]; Taper Stop: 01/18/20 02:44 Last Admin: 01/14/20 09:48 Dose: 97.2 mg Documented by: Sodium Chloride () 10 - 40 ml IV UD PRN PRN Reason: SALINE FLUSH Last Admin: 01/13/20 22:00 Dose: 10 ml Documented by: Sodium Chloride () 10 - 40 ml IV UD PRN PRN Reason: SALINE FLUSH Thiamine HCl (Vitamin B1) 100 mg PO BIDCM [facility] Stop: 01/15/20 17:01 Last Admin: 01/14/20 08:24 Dose: 100 mg Documented by: STROKE Vital Signs/Narrative: Vital Signs Temp Pulse Resp BP Pulse Ox 01/14/20 11:54 97.6 F L 70 14 103/63 95 Assessment/Plan Hospitalist note: I am seeing this patient in conjunction with Kranthi Stephens. I independently seen and examined the patient. Progress note above, laboratory data and imaging studies reviewed and I concur with above treatment plan. Overnight, patient had increasing withdrawal symptoms, started on phenobarbital taper. Today, he is feeling better, no complaints. His vital signs are stable. - Physical Exam General: Alert, Oriented x3, Cooperative, No apparent distress. HEENT: traumatic, bruises around left eye, PERRLA, EOMI. Neck: Supple, No JVD, Negative Carotid Bruits, Trachea Midline, Thyroid Normal. Lungs: Clear to auscultation, Normal air movement, No rhonchi, No wheeze, No rales. Cardiovascular: Regular rate, Regular Rhythm, Normal S1, Normal S2, PMI Normal. Abdomen: Bowel Sounds Present, Soft, Non Tender, Non-Distended, No Hepato- splenomegaly. Extremities: No clubbing, No cyanosis, No edema Skin: No rashes, No breakdown Neurological: Cranial nerves are intact, neuro grossly intact Vital Signs are stable. Assessment and plan: #1 acute metabolic encephalopathy: Today, patient remains alert and treated x3. It is attributed to severe hyponatremia. There is a concern that patient may had alcohol withdrawal seizure but not clear. CT scan brain showed no acute findings. CT scan cervical spine was unremarkable. Sodium significant improved as well as potassium. #2 acute on chronic hyponatremia/severe hypokalemia/hypochloremia/hypophosphatemia: Probably patient does have chronic hyponatremia secondary to alcohol abuse and could be exaggerated by dehydration. Today sodium was 124, potassium is 4, phosphorus was replaced and corrected, serum magnesium was normal. We will repeat BMP tomorrow morning. #3 alcohol abuse: He is on CIWA protocol, folic acid, thiamine, PRN Ativan. Overnight, he was started on phenobarbital taper because of increasing withdrawal symptoms. Today, he is feeling better, plan to continue same treatment. #4 other chronic medical problems: Stable, continue current medications as above. This note was generated with [employer] dictation software. It may contain incorrect words, spelling, and punctuation that were not noted in checking the note before signing. Inpatient E&M: 73741 Subs Hosp L2
[2020-01-15] VITALS (7 sets, daily range): BP systolic 110–158; BP diastolic 62–80; PULSE 65–80; RESP 18; TEMP 36.3–37.1; O2SAT 93–100
[2020-01-15] MEDS: Phenobarbital 32.4 MG Tablet PO ×5 (00:37→22:20)
[2020-01-15] MEDS: Potassium Chloride 40 MEQ in 0.9% Normal Saline 1,000 ML 75 MEQ IV ×2 (01:19→15:00)
[2020-01-15] MEDS: LORazepam 2 MG/ML Syringe IV ×6 (01:24→23:17)
[2020-01-15 06:48] LABS: Anion Gap 4 (5-15); BUN 2 mg/dL (7-18); BUN/Creat Ratio 3.3 RATIO (10-20); Calcium,Total 7.7 mg/dL (8.5-10.1); Chloride 100 mmol/L (98-107); EST Glomerular Filtration Rate 147 mL/min (>60); Est Glom Filt Rate - Afr Amer 178 mL/min (>60); Estimated Creatinine Clearance 132.22 ml/min; Glucose 68 mg/dL (74-106); Potassium 4.8 mmol/L (3.5-5.1); Sodium Level 128 mmol/L (136-145)
--- NOTE | 2020-01-15 09:22 | NURSING ---
this nurse attempted to give scheduled medication pt resting with eyes closed and would not open eyes or respond to staff.
[2020-01-15] MEDS: Thiamine Hydrochloride 100 MG Tablet PO ×2 (09:36→18:36)
[2020-01-15] MEDS: Lisinopril 20 MG Tablet PO (09:36)
[2020-01-15] MEDS: Folic Acid 1 MG Tablet PO (09:36)
[2020-01-15] MEDS: Multivitamins,Ther W-Minerals Tablet 1 TABLET PO (09:36)
[2020-01-15] MEDS: 0.9% Saline Lock 10 ML Syringe IV ×2 (11:32→18:39)
--- NOTE | 2020-01-15 11:32 | CASEMGMT ---
SW following for substance abuse. Patient is going through withdrawals at this time and is confused. Kelsy MCCANN [employer]
--- NOTE | 2020-01-15 12:29 | PN_ITS ---
<Kranthi Stephens - Last Filed: 01/15/20 12:29> Patient Problems: Active and Suspected Problems (Last Reviewed 01/13/20 @ 02:[address] Guillaume Jordan MD) Confusion (Acute) Hypokalemia (Acute) Acute metabolic encephalopathy (Acute) Hyponatremia (Acute) Reason for Visit: Alcohol withdrawal, hyponatremia Subjective: Patient more confused today. He declined to take phenobarbital overnight. He was agitated with nursing last night and required ativan. He is sleeping in the wrong direction in his bed. He was difficult to wake up. On awakening he yelled who the fuck are you, despite that he was familiar with me from yesterday, and when I asked him if he was going to continue drinking he yelled fuck yeah I am. The patient is very confused and is hallucinating. He stated that he was seeing blue objects floating through the air, staircase on the ceiling, he said he saw a green scope in the room, he thought that he was in his apartment and did not understand why people were in his apartment with him, he could not remember why he had an IV in. He does not appear restless. Vitals/I&O's: Vital Signs Temp Pulse Resp BP Pulse Ox 97.8 F 78 18 150/70 H 99 01/15/20 09:06 01/15/20 09:06 01/15/20 09:06 01/15/20 09:06 01/15/20 09:06 Oxygen Flow Rate (L/min) 2 Oxygen Delivery Method Room Air Weight: 148 lb 2.41 oz Body Mass Index (BMI) 22.2 Intake and Output for Last 24 Hours 01/13/20 01/14/20 01/15/20 23:59 23:59 23:59 Intake Total 3986.67 / 4226.67 1860 / 1860 1215 / 1215 Output Total 3300 / 3700 900 / 900 1100 / 1100 Balance 686.67 / 526.67 960 / 960 115 / 115 General: Alert, Cooperative, Confused HEENT: Atraumatic, PERRLA, EOMI, Normocephalic Neck: Supple, No JVD, Negative Carotid Bruits Lungs: Clear to auscultation, Normal air movement Cardiovascular: Regular rate, No murmurs Abdomen: Bowel Sounds Present, Soft, Non Tender Extremities: No edema, Capillary Refill Less than 3 Seconds Skin: No rashes, No breakdown Musculoskeletal: No Tenderness to Palpation of Joints or Extremities Neurological: Cranial nerves II-XII grossly intact Psych/Mental Status: Hallucinations Laboratory Results 01/15/20 06:05: Sodium 128 L, Potassium 4.8, Chloride 100, Carbon Dioxide 24.0, Anion Gap 4 L, BUN 2 L, Creatinine 0.60 L, Estim Creat Clear Calc 132.22, Est GFR (MDRD) Af Amer 178, Est GFR (MDRD) Non-Af 147, BUN/Creatinine Ratio 3.3 L, Glucose 68 L, Calcium 7.7 L Current Medications Acetaminophen (Tylenol) 650 mg PO Q6H PRN PRN PRN Reason: Pain Score 1-10/Temp > 100.7 F Dextrose (D50w Syringe) 0 gm IV X1 PRN; Protocol PRN Reason: Hypoglycemia Enoxaparin Sodium (Lovenox) 40 mg SC DAILY [facility] Last Admin: 01/15/20 09:36 Dose: Not Given Documented by: Glucagon () 1 mg IM .X1 PRN PRN Reason: Hypoglycemia Sodium Chloride () 1,000 mls @ 15 mls/hr IV .Q48H [facility] Last Admin: 01/15/20 04:31 Dose: Not Given Documented by: Sodium Chloride () 250 mls @ 15 mls/hr IV .[id number] PRN PRN Reason: Saline Flush Sodium Chloride () 250 mls @ 15 mls/hr IV .[id number] PRN PRN Reason: Additional IVPB Infusion Potassium Chloride 40 meq/ (Sodium Chloride) 1,020 mls @ 75 mls/hr IV .[id number] [facility] Last Admin: 01/15/20 01:19 Dose: 75 mls/hr Documented by: Lisinopril (Zestril) 20 mg PO DAILY [facility] Last Admin: 01/15/20 09:36 Dose: 20 mg Documented by: Lorazepam (Ativan) 2 mg PO Q2H PRN PRN; Protocol PRN Reason: CIWA score > 8 but <15 Last Admin: 01/14/20 08:23 Dose: 2 mg Documented by: Lorazepam (Ativan) 2 mg PO UD PRN; Protocol PRN Reason: CIWA score >/=15. Lorazepam (Ativan) 2 mg IV Q2H PRN PRN; Protocol PRN Reason: CIWA score > 8 but <15 Last Admin: 01/15/20 11:32 Dose: 2 mg Documented by: Lorazepam (Ativan) 2 mg IV UD PRN; Protocol PRN Reason: CIWA score >/=15. Last Admin: 01/15/20 01:24 Dose: 2 mg Documented by: Lorazepam (Ativan) 2 mg IV Q2H PRN PRN PRN Reason: SEIZURES Multivitamins/Minerals ([facility] Last Admin: 01/15/20 09:36 Dose: 1 tablet Documented by: Nicotine (Nicoderm Cq (Pbkc)) 14 mg TRANSDERM. DAILY [facility] Last Admin: 01/15/20 09:17 Dose: 14 mg Documented by: Ondansetron HCl (Zofran) 4 mg IV Q8H PRN PRN PRN Reason: NAUSEA/VOMITING Phenobarbital (Phenobarbital) 64.8 mg PO Q4H [facility]; Taper Stop: 01/18/20 02:44 Last Admin: 01/15/20 09:36 Dose: 64.8 mg Documented by: Sodium Chloride () 10 - 40 ml IV UD PRN PRN Reason: SALINE FLUSH Last Admin: 01/15/20 11:32 Dose: 10 ml Documented by: Sodium Chloride () 10 - 40 ml IV UD PRN PRN Reason: SALINE FLUSH Thiamine HCl (Vitamin B1) 100 mg PO BIDCM [facility] Stop: 01/15/20 17:01 Last Admin: 01/15/20 09:36 Dose: 100 mg Documented by: STROKE Vital Signs/Narrative: Vital Signs Temp Pulse Resp BP Pulse Ox 01/15/20 09:06 97.8 F 78 18 150/70 H 99 Medical Necessity - Tobacco Use Smoking Status: Current every day smoker Tobacco Use: Cigarettes Assessment/Plan All Active Problems (Last Reviewed 01/13/20 @ 02:[address] Guillaume Jordan MD) Confusion (Acute) Hypokalemia (Acute) Acute metabolic encephalopathy (Acute) Hyponatremia (Acute) 1. Acute metabolic encephalopathy 2/2 acute on chronic hyponatremia - hyponatremia is improving. While he is here we will continue gentle hydration with IV normal saline. 2. Alcoholism -the patient declined phenobarbital last night and is now in a worsening of alcohol withdrawal. He is hallucinating as per subjective. Patient did agree to take his pills this morning. Continue alcohol withdrawal protocol. 3. Tobacco abuse - <1/2 ppd. continue patch. 4. HTN - HCTZ discontinued. Continue lisinopril. BP normal. DVT ppx: lovenox DC planning: referral to [facility] program This patient was seen by Kranthi Stephens PA-C under the supervision of Doctor Sherin. <Naren Duff E - Last Filed: 01/15/20 12:44> Vitals/I&O's: Vital Signs Temp Pulse Resp BP Pulse Ox 97.8 F 78 18 150/70 H 99 01/15/20 09:06 01/15/20 09:06 01/15/20 09:06 01/15/20 09:06 01/15/20 09:06 Oxygen Flow Rate (L/min) 2 Oxygen Delivery Method Room Air Weight: 148 lb 2.41 oz Body Mass Index (BMI) 22.2 Intake and Output for Last 24 Hours 01/13/20 01/14/20 01/15/20 23:59 23:59 23:59 Intake Total 3986.67 / 4226.67 1860 / 1860 1215 / 1215 Output Total 3300 / 3700 900 / 900 1100 / 1100 Balance 686.67 / 526.67 960 / 960 115 / 115 Laboratory Results 01/15/20 06:05: Sodium 128 L, Potassium 4.8, Chloride 100, Carbon Dioxide 24.0, Anion Gap 4 L, BUN 2 L, Creatinine 0.60 L, Estim Creat Clear Calc 132.22, Est GFR (MDRD) Af Amer 178, Est GFR (MDRD) Non-Af 147, BUN/Creatinine Ratio 3.3 L, Glucose 68 L, Calcium 7.7 L Current Medications Acetaminophen (Tylenol) 650 mg PO Q6H PRN PRN PRN Reason: Pain Score 1-10/Temp > 100.7 F Dextrose (D50w Syringe) 0 gm IV X1 PRN; Protocol PRN Reason: Hypoglycemia Enoxaparin Sodium (Lovenox) 40 mg SC DAILY [facility] Last Admin: 01/15/20 09:36 Dose: Not Given Documented by: Glucagon () 1 mg IM .X1 PRN PRN Reason: Hypoglycemia Sodium Chloride () 1,000 mls @ 15 mls/hr IV .Q48H [facility] Last Admin: 01/15/20 04:31 Dose: Not Given Documented by: Sodium Chloride () 250 mls @ 15 mls/hr IV .[id number] PRN PRN Reason: Saline Flush Sodium Chloride () 250 mls @ 15 mls/hr IV .[id number] PRN PRN Reason: Additional IVPB Infusion Potassium Chloride 40 meq/ (Sodium Chloride) 1,020 mls @ 75 mls/hr IV .[id number] [facility] Last Admin: 01/15/20 01:19 Dose: 75 mls/hr Documented by: Lisinopril (Zestril) 20 mg PO DAILY [facility] Last Admin: 01/15/20 09:36 Dose: 20 mg Documented by: Lorazepam (Ativan) 2 mg PO Q2H PRN PRN; Protocol PRN Reason: CIWA score > 8 but <15 Last Admin: 01/14/20 08:23 Dose: 2 mg Documented by: Lorazepam (Ativan) 2 mg PO UD PRN; Protocol PRN Reason: CIWA score >/=15. Lorazepam (Ativan) 2 mg IV Q2H PRN PRN; Protocol PRN Reason: CIWA score > 8 but <15 Last Admin: 01/15/20 11:32 Dose: 2 mg Documented by: Lorazepam (Ativan) 2 mg IV UD PRN; Protocol PRN Reason: CIWA score >/=15. Last Admin: 01/15/20 01:24 Dose: 2 mg Documented by: Lorazepam (Ativan) 2 mg IV Q2H PRN PRN PRN Reason: SEIZURES Multivitamins/Minerals ([facility])) [facility] Last Admin: 01/15/20 09:36 Dose: 1 tablet Documented by: Nicotine (Nicoderm Cq (Pbkc)) 14 mg TRANSDERM. DAILY [facility] Last Admin: 01/15/20 09:17 Dose: 14 mg Documented by: Ondansetron HCl (Zofran) 4 mg IV Q8H PRN PRN PRN Reason: NAUSEA/VOMITING Phenobarbital (Phenobarbital) 64.8 mg PO Q4H [facility]; Taper Stop: 01/18/20 02:44 Last Admin: 01/15/20 09:36 Dose: 64.8 mg Documented by: Sodium Chloride () 10 - 40 ml IV UD PRN PRN Reason: SALINE FLUSH Last Admin: 01/15/20 11:32 Dose: 10 ml Documented by: Sodium Chloride () 10 - 40 ml IV UD PRN PRN Reason: SALINE FLUSH Thiamine HCl (Vitamin B1) 100 mg PO BIDCM [facility] Stop: 01/15/20 17:01 Last Admin: 01/15/20 09:36 Dose: 100 mg Documented by: STROKE Vital Signs/Narrative: Vital Signs Temp Pulse Resp BP Pulse Ox 01/15/20 09:06 97.8 F 78 18 150/70 H 99 Assessment/Plan Hospitalist note: I am seeing this patient in conjunction with Kranthi Stephens. I independently seen and examined the patient. Progress note above, laboratory data and imaging studies reviewed and I concur with above treatment plan. Today, patient is confused. He refused to take his phenobarbital last night. Nursing staff mentioned that he has been hallucinating, lethargic and sleepy. His vital signs remained stable. - Physical Exam General: Alert, confused, Cooperative, No apparent distress. HEENT: traumatic, bruises around left eye, PERRLA, EOMI. Neck: Supple, No JVD, Negative Carotid Bruits, Trachea Midline, Thyroid Normal. Lungs: Clear to auscultation, Normal air movement, No rhonchi, No wheeze, No rales. Cardiovascular: Regular rate, Regular Rhythm, Normal S1, Normal S2, PMI Normal. Abdomen: Bowel Sounds Present, Soft, Non Tender, Non-Distended, No Hepato- splenomegaly. Extremities: No clubbing, No cyanosis, No edema Skin: No rashes, No breakdown Neurological: Cranial nerves are intact, neuro grossly intact Vital Signs are stable. Assessment and plan: #1 acute metabolic encephalopathy: Patient became confused again, hallucinating likely because of withdrawal. Sodium is improving every day. There is a concern that patient may had alcohol withdrawal seizure but not clear. CT scan brain showed no acute findings. CT scan cervical spine was unremarkable. Instructed patient to make sure that he takes phenobarbital taper for withdrawal symptoms and he agreed. #2 acute on chronic hyponatremia/severe hypokalemia/hypochloremia/hypophosphatemia: Probably patient does have chronic hyponatremia secondary to alcohol abuse and could be exaggerated by dehydration. Today sodium was 128, potassium is 4.8. phosphorus was replaced and corrected, serum magnesium was normal. W #3 alcohol abuse: He is on CIWA protocol, folic acid, thiamine, PRN Ativan as well as phenobarbital taper. Last night, refused to take phenobarbital and he started having hallucination, confused and having withdrawal symptoms. Today, he agreed to take his medications. Plan to continue same treatment. #4 other chronic medical problems: Stable, continue current medications as above. This note was generated with [employer] dictation software. It may contain incorrect words, spelling, and punctuation that were not noted in checking the note before signing. Inpatient E&M: 97917 Subs Hosp L2
[2020-01-15 12:54] LABS: Pathologist Review Reviewed
--- NOTE | 2020-01-15 13:34 | NURSING ---
pt urinated on self and floor. while staff assisting pt to wash and change pt making inappropriate comments to staff members. pt pulled out IV while staff stepped out of room for supplies. pt swearing and becoming aggressive toward staff stating get out of my house you fucking fuckers. This nurse attempted to reorient pt unsuccessful. pt allowed new IV to be placed, medication administered. pt resting in bed, eyes closed, call light in reach. Will continue to monitor.
[2020-01-15 14:08] LABS: PROEL- A/G Ratio 1.3 (0.7-1.7); PROEL- Albumin 3.5 g/dL (2.9-4.4); PROEL- Alpha-1 Globulin 0.3 g/dL (0.0-0.4); PROEL- Alpha-2 Globulin 0.8 g/dL (0.4-1.0); PROEL- Beta Globulin 0.9 g/dL (0.7-1.3); PROEL- Globulin, Total 2.8 g/dL (2.2-3.9); PROEL- TOTAL PROTEIN 6.3 g/dL (6.0-8.5)
[2020-01-15] MEDS: Haloperidol Lactate 5 MG/ML Vial 2 MG IM (14:17)
[2020-01-16] VITALS (8 sets, daily range): BP systolic 111–155; BP diastolic 66–76; PULSE 72–86; RESP 16–18; TEMP 36.3–37; O2SAT 95–100
[2020-01-16] MEDS: Phenobarbital 32.4 MG Tablet PO ×4 (02:03→20:31)
[2020-01-16] MEDS: 0.9% Saline Lock 10 ML Syringe IV ×2 (02:39→03:08)
[2020-01-16] MEDS: LORazepam 2 MG/ML Syringe IV ×5 (02:39→17:16)
[2020-01-16] MEDS: Potassium Chloride 40 MEQ in 0.9% Normal Saline 1,000 ML 75 MEQ IV (06:16)
[2020-01-16 06:27] LABS: Anion Gap 7 (5-15); BUN 2 mg/dL (7-18); Calcium,Total 7.8 mg/dL (8.5-10.1); Chloride 100 mmol/L (98-107); Creatinine, Serum 0.51 mg/dL (0.70-1.30); EST Glomerular Filtration Rate 181 mL/min (>60); Est Glom Filt Rate - Afr Amer 218 mL/min (>60); Estimated Creatinine Clearance 151.39 ml/min; Glucose 68 mg/dL (74-106); Potassium 4.7 mmol/L (3.5-5.1); Sodium Level 127 mmol/L (136-145)
[2020-01-16] MEDS: Multivitamins,Ther W-Minerals Tablet 1 TABLET PO (07:41)
[2020-01-16] MEDS: Lisinopril 20 MG Tablet PO (07:41)
[2020-01-16] MEDS: Enoxaparin 40 MG/0.4 ML Syringe SC (07:41)
[2020-01-16] MEDS: Haloperidol Lactate 5 MG/ML Vial 2 MG IM ×2 (11:43→15:38)
--- NOTE | 2020-01-16 11:47 | NURSING ---
pt continues to be agitated and restless, Adolfo rothman made aware and PRN haldol given
--- NOTE | 2020-01-16 12:50 | PCM.PN.HOSP ---
<Kranthi Stephens - Last Filed: 01/16/20 12:50> Patient Problems: Active and Suspected Problems (Last Reviewed 01/13/20 @ 02:[address] Guillaume Jordan MD) Confusion (Acute) Hypokalemia (Acute) Acute metabolic encephalopathy (Acute) Hyponatremia (Acute) Reason for Visit: Pt less confused this AM. Correctly answered a/ox3 questions. Rare cough. No SOB. No fever/chills. Still very lethargic and groggy. Vitals/I&O's: Vital Signs Temp Pulse Resp BP Pulse Ox 98.4 F 86 18 153/66 H 98 01/16/20 08:00 01/16/20 08:00 01/16/20 08:00 01/16/20 08:00 01/16/20 08:00 Oxygen Flow Rate (L/min) 2 Oxygen Delivery Method Room Air Weight: 144 lb 2.917 oz Body Mass Index (BMI) 22.2 Intake and Output for Last 24 Hours 01/14/20 01/15/20 01/16/20 23:59 23:59 23:59 Intake Total 1860 / 1860 2715 / 2715 1370 / 1370 Output Total 900 / 900 1400 / 1400 Balance 960 / 960 1315 / 1315 1370 / 1370 General: Alert, Oriented x3, Cooperative, Lethargic HEENT: Atraumatic, PERRLA, EOMI, Normocephalic Neck: Supple, No JVD, Negative Carotid Bruits Lungs: Clear to auscultation, Normal air movement Cardiovascular: Regular rate, No murmurs Abdomen: Bowel Sounds Present, Soft, Non Tender Extremities: No edema, Capillary Refill Less than 3 Seconds Skin: No rashes, No breakdown Musculoskeletal: No Tenderness to Palpation of Joints or Extremities Neurological: Cranial nerves II-XII grossly intact Psych/Mental Status: Normal Affect, Appropriate, Alert and oriented to time, place, person, mood and affect Laboratory Results 01/12/20 23:50: Diff Path Review Reviewed 01/13/20 01:55: Total Protein (PEP) 6.3, Albumin (PEP) 3.5, Globulin (PEP) 2.8, Albumin/Globulin (PEP) 1.3, Ybddu-5-Musvfjaon 0.3, Jpunh-1-Ighbwdqzf 0.8, Beta Globulins 0.9, Gamma Globulins 1.0, M-Sahil , PEP Note Comment, PEP Interpretation Comment 01/16/20 05:40: Sodium 127 L, Potassium 4.7, Chloride 100, Carbon Dioxide 20.0 L, Anion Gap 7, BUN 2 L, Creatinine 0.51 L, Estim Creat Clear Calc 151.39, Est GFR (MDRD) Af Amer 218, Est GFR (MDRD) Non-Af 181, BUN/Creatinine Ratio 4.0 L, Glucose 68 L, Calcium 7.8 L Current Medications Acetaminophen (Tylenol) 650 mg PO Q6H PRN PRN PRN Reason: Pain Score 1-10/Temp > 100.7 F Dextrose (D50w Syringe) 0 gm IV X1 PRN; Protocol PRN Reason: Hypoglycemia Enoxaparin Sodium (Lovenox) 40 mg SC DAILY [facility] Last Admin: 01/16/20 07:41 Dose: 40 mg Documented by: Glucagon () 1 mg IM .X1 PRN PRN Reason: Hypoglycemia Sodium Chloride () 1,000 mls @ 15 mls/hr IV .Q48H [facility] Last Admin: 01/15/20 04:31 Dose: Not Given Documented by: Sodium Chloride () 250 mls @ 15 mls/hr IV .[id number] PRN PRN Reason: Saline Flush Sodium Chloride () 250 mls @ 15 mls/hr IV .[id number] PRN PRN Reason: Additional IVPB Infusion Potassium Chloride 40 meq/ (Sodium Chloride) 1,020 mls @ 75 mls/hr IV .[id number] [facility] Last Admin: 01/16/20 06:16 Dose: 75 mls/hr Documented by: Lisinopril (Zestril) 20 mg PO DAILY [facility] Last Admin: 01/16/20 07:41 Dose: 20 mg Documented by: Lorazepam (Ativan) 2 mg PO Q2H PRN PRN; Protocol PRN Reason: CIWA score > 8 but <15 Last Admin: 01/14/20 08:23 Dose: 2 mg Documented by: Lorazepam (Ativan) 2 mg PO UD PRN; Protocol PRN Reason: CIWA score >/=15. Lorazepam (Ativan) 2 mg IV Q2H PRN PRN; Protocol PRN Reason: CIWA score > 8 but <15 Last Admin: 01/16/20 11:09 Dose: 2 mg Documented by: Lorazepam (Ativan) 2 mg IV UD PRN; Protocol PRN Reason: CIWA score >/=15. Last Admin: 01/16/20 03:22 Dose: 2 mg Documented by: Lorazepam (Ativan) 2 mg IV Q2H PRN PRN PRN Reason: SEIZURES Multivitamins/Minerals (Multivitamin With Minerals (Bkc)) 1 tablet PO DAILYCM [facility] Last Admin: 01/16/20 07:41 Dose: 1 tablet Documented by: Nicotine (Nicoderm Cq (Pbkc)) 14 mg TRANSDERM. DAILY [facility] Last Admin: 01/16/20 07:42 Dose: 14 mg Documented by: Ondansetron HCl (Zofran) 4 mg IV Q8H PRN PRN PRN Reason: NAUSEA/VOMITING Phenobarbital (Phenobarbital) 64.8 mg PO Q6H [facility]; Taper Stop: 01/18/20 02:44 Last Admin: 01/16/20 07:40 Dose: 64.8 mg Documented by: Sodium Chloride () 10 - 40 ml IV UD PRN PRN Reason: SALINE FLUSH Last Admin: 01/16/20 03:08 Dose: 10 ml Documented by: Sodium Chloride () 10 - 40 ml IV UD PRN PRN Reason: SALINE FLUSH Medical Necessity - Tobacco Use Smoking Status: Current every day smoker Tobacco Use: Cigarettes Assessment/Plan All Active Problems (Last Reviewed 01/13/20 @ 02:[address] Guillaume Jordan MD) Confusion (Acute) Hypokalemia (Acute) Acute metabolic encephalopathy (Acute) Hyponatremia (Acute) 1. Acute metabolic encephalopathy 2/2 acute on chronic hyponatremia - continue NaCl. Na128-->127 2. Alcoholism - still groggy, requiring haldol intermittently. continue phenobarb taper + ativan. 3. Tobacco abuse - <1/2 ppd. continue patch. 4. HTN - HCTZ discontinued. Continue lisinopril. BP normal. DVT ppx: lovenox DC planning: referral to [facility] program This patient was seen by Kranthi Stephens PA-C under the supervision of Doctor Sherin. <Naren Duff - Last Filed: 01/16/20 12:58> Vitals/I&O's: Vital Signs Temp Pulse Resp BP Pulse Ox 98.4 F 86 18 153/66 H 98 01/16/20 08:00 01/16/20 08:00 01/16/20 08:00 01/16/20 08:00 01/16/20 08:00 Oxygen Flow Rate (L/min) 2 Oxygen Delivery Method Room Air Weight: 144 lb 2.917 oz Body Mass Index (BMI) 22.2 Intake and Output for Last 24 Hours 01/14/20 01/15/20 01/16/20 23:59 23:59 23:59 Intake Total 1860 / 1860 2715 / 2715 1370 / 1370 Output Total 900 / 900 1400 / 1400 Balance 960 / 960 1315 / 1315 1370 / 1370 Laboratory Results 01/13/20 01:55: Total Protein (PEP) 6.3, Albumin (PEP) 3.5, Globulin (PEP) 2.8, Albumin/Globulin (PEP) 1.3, Ihqhv-3-Ymseybghw 0.3, Wfxyo-9-Zxvbzadgm 0.8, Beta Globulins 0.9, Gamma Globulins 1.0, M-Sahil , PEP Note Comment, PEP Interpretation Comment 01/16/20 05:40: Sodium 127 L, Potassium 4.7, Chloride 100, Carbon Dioxide 20.0 L, Anion Gap 7, BUN 2 L, Creatinine 0.51 L, Estim Creat Clear Calc 151.39, Est GFR (MDRD) Af Amer 218, Est GFR (MDRD) Non-Af 181, BUN/Creatinine Ratio 4.0 L, Glucose 68 L, Calcium 7.8 L Current Medications Acetaminophen (Tylenol) 650 mg PO Q6H PRN PRN PRN Reason: Pain Score 1-10/Temp > 100.7 F Dextrose (D50w Syringe) 0 gm IV X1 PRN; Protocol PRN Reason: Hypoglycemia Enoxaparin Sodium (Lovenox) 40 mg SC DAILY [facility] Last Admin: 01/16/20 07:41 Dose: 40 mg Documented by: Glucagon () 1 mg IM .X1 PRN PRN Reason: Hypoglycemia Sodium Chloride () 1,000 mls @ 15 mls/hr IV .Q48H [facility] Last Admin: 01/15/20 04:31 Dose: Not Given Documented by: Sodium Chloride () 250 mls @ 15 mls/hr IV .[id number] PRN PRN Reason: Saline Flush Sodium Chloride () 250 mls @ 15 mls/hr IV .[id number] PRN PRN Reason: Additional IVPB Infusion Potassium Chloride 40 meq/ (Sodium Chloride) 1,020 mls @ 75 mls/hr IV .[id number] [facility] Last Admin: 01/16/20 06:16 Dose: 75 mls/hr Documented by: Lisinopril (Zestril) 20 mg PO DAILY [facility] Last Admin: 01/16/20 07:41 Dose: 20 mg Documented by: Lorazepam (Ativan) 2 mg PO Q2H PRN PRN; Protocol PRN Reason: CIWA score > 8 but <15 Last Admin: 01/14/20 08:23 Dose: 2 mg Documented by: Lorazepam (Ativan) 2 mg PO UD PRN; Protocol PRN Reason: CIWA score >/=15. Lorazepam (Ativan) 2 mg IV Q2H PRN PRN; Protocol PRN Reason: CIWA score > 8 but <15 Last Admin: 01/16/20 11:09 Dose: 2 mg Documented by: Lorazepam (Ativan) 2 mg IV UD PRN; Protocol PRN Reason: CIWA score >/=15. Last Admin: 01/16/20 03:22 Dose: 2 mg Documented by: Lorazepam (Ativan) 2 mg IV Q2H PRN PRN PRN Reason: SEIZURES Multivitamins/Minerals (Multivitamin With Minerals (Bkc)) 1 tablet PO DAILYCM [facility] Last Admin: 01/16/20 07:41 Dose: 1 tablet Documented by: Nicotine (Nicoderm Cq (Pbkc)) 14 mg TRANSDERM. DAILY [facility] Last Admin: 01/16/20 07:42 Dose: 14 mg Documented by: Ondansetron HCl (Zofran) 4 mg IV Q8H PRN PRN PRN Reason: NAUSEA/VOMITING Phenobarbital (Phenobarbital) 64.8 mg PO Q6H [facility]; Taper Stop: 01/18/20 02:44 Last Admin: 01/16/20 07:40 Dose: 64.8 mg Documented by: Sodium Chloride () 10 - 40 ml IV UD PRN PRN Reason: SALINE FLUSH Last Admin: 01/16/20 03:08 Dose: 10 ml Documented by: Sodium Chloride () 10 - 40 ml IV UD PRN PRN Reason: SALINE FLUSH Assessment/Plan Hospitalist note: I am seeing this patient in conjunction with Kranthi Stephens. I independently seen and examined the patient. Progress note above, laboratory data and imaging studies reviewed and I concur with above treatment plan. Today, patient is more oriented, less confused but was lethargic. He denied any complaints. His vital signs are stable. - Physical Exam General: Alert, confused, Cooperative, lethargic, no apparent distress. HEENT: traumatic, bruises around left eye, PERRLA, EOMI. Neck: Supple, No JVD, Negative Carotid Bruits, Trachea Midline, Thyroid Normal. Lungs: Clear to auscultation, Normal air movement, No rhonchi, No wheeze, No rales. Cardiovascular: Regular rate, Regular Rhythm, Normal S1, Normal S2, PMI Normal. Abdomen: Bowel Sounds Present, Soft, Non Tender, Non-Distended, No Hepato-splenomegaly. Extremities: No clubbing, No cyanosis, No edema Skin: No rashes, No breakdown Neurological: Cranial nerves are intact, neuro grossly intact Vital Signs are stable. Assessment and plan: #1 acute metabolic encephalopathy: Multifactorial secondary to acute alcohol withdrawal and severe hyponatremia. Serum sodium improved. Patient has been on phenobarbital taper as well as Ativan as needed. CT scan brain showed no acute findings. CT scan cervical spine was unremarkable. Serum sodium improved. Plan to continue same treatment. #2 acute on chronic hyponatremia/severe hypokalemia/hypochloremia/hypophosphatemia: Probably patient does have chronic hyponatremia secondary to alcohol abuse and could be exaggerated by dehydration. Today sodium was 127, potassium is 4.7. phosphorus was replaced and corrected, serum magnesium was normal. #3 alcohol abuse: He is on CIWA protocol, folic acid, thiamine, PRN Ativan as well as phenobarbital taper. Today, he is more lethargic but is confused. Plan as above. #4 other chronic medical problems: Stable, continue current medications as above. This note was generated with [employer] software. It may contain incorrect words, spelling, and punctuation that were not noted in checking the note before signing. Inpatient E&M: 28590 Subs Hosp L2
--- NOTE | 2020-01-16 15:51 | EKG12_ITS ---
Test Reason : ABNORMAL EKG Blood Pressure : / mmHG Vent. Rate : 074 BPM Atrial Rate : 074 BPM P-R Int : 150 ms QRS Dur : 110 ms QT Int : 402 ms P-R-T Axes : -19 008 050 degrees QTc Int : 446 ms Normal sinus rhythm Normal ECG When compared with ECG of 13-JAN-2020 00:15, Right bundle branch block is no longer Present Confirmed by ANABEL BRAVO ([id number]), research editor MINISTERIO SYED ([id number] on 01/18/2020 11:31:52 AM Referred By: DR VALE Confirmed By:ANABEL BRAVO
[2020-01-16 16:00] LABS: Bedside Glucose 82 mg/dL (70-110)
[2020-01-16] MEDS: Dextrose 5%/0.9% NaCl 1,000 ML 75 ML IV (16:00)
--- NOTE | 2020-01-16 18:03 | NURSING ---
spoke with pt who gave verbal ok to tell Thor why he is in hospital
[2020-01-17] VITALS (7 sets, daily range): BP systolic 131–166; BP diastolic 71–88; PULSE 70–80; RESP 18; TEMP 36.1–36.8; O2SAT 95–99
[2020-01-17] MEDS: 0.9% Saline Lock 10 ML Syringe IV ×2 (00:10→07:42)
[2020-01-17] MEDS: LORazepam 2 MG/ML Syringe IV ×3 (00:11→14:34)
[2020-01-17] MEDS: Phenobarbital 32.4 MG Tablet PO ×4 (04:00→22:23)
[2020-01-17] MEDS: Dextrose 5%/0.9% NaCl 1,000 ML 75 ML IV ×2 (05:54→17:25)
[2020-01-17 06:07] LABS: Anion Gap 3 (5-15); BUN 2 mg/dL (7-18); BUN/Creat Ratio 3.3 RATIO (10-20); Calcium,Total 8.2 mg/dL (8.5-10.1); Chloride 100 mmol/L (98-107); EST Glomerular Filtration Rate 147 mL/min (>60); Est Glom Filt Rate - Afr Amer 178 mL/min (>60); Estimated Creatinine Clearance 126.32 ml/min; Glucose 106 mg/dL (74-106); Sodium Level 128 mmol/L (136-145)
[2020-01-17] MEDS: Enoxaparin 40 MG/0.4 ML Syringe SC (10:32)
[2020-01-17] MEDS: Multivitamins,Ther W-Minerals Tablet 1 TABLET PO (10:32)
[2020-01-17] MEDS: Lisinopril 20 MG Tablet PO (10:35)
--- NOTE | 2020-01-17 11:35 | PCM.PN.HOSP ---
<Kranthi Stephens - Last Filed: 01/17/20 11:35> Patient Problems: Active and Suspected Problems (Last Reviewed 01/13/20 @ 02:[address] Guillaume Jordan MD) Confusion (Acute) Hypokalemia (Acute) Acute metabolic encephalopathy (Acute) Hyponatremia (Acute) Reason for Visit: Alchol withdrawal Subjective: The patient continues to be intermittently confused, combative, and having difficulty staying in bed with nursing. He is confused this AM A/O x1 (person). He is lethargic and groggy. He does not report any symptoms similar to his prior hallucinations (objects in room that were not there). He has no focal deficits. He has no chest pain. He is not eating well, had low blood sugar yesterday, and was placed on d5NaCl with good improvement in BMP today. He is not currently capable of taking care of himself at home safely at this time. Vitals/I&O's: Vital Signs Temp Pulse Resp BP Pulse Ox 97.9 F 80 18 131/78 H 95 01/17/20 07:53 01/17/20 07:53 01/17/20 07:53 01/17/20 07:53 01/17/20 07:53 Oxygen Flow Rate (L/min) 2 Oxygen Delivery Method Room Air Weight: 141 lb 8.588 oz Body Mass Index (BMI) 22.2 Intake and Output for Last 24 Hours 01/15/20 01/16/20 01/17/20 23:59 23:59 23:59 Intake Total 2715 / 2715 3629.25 / 3629.25 581.25 / 581.25 Output Total 1400 / 1400 300 / 300 Balance 1315 / 1315 3629.25 / 3629.25 281.25 / 281.25 General: Alert, Oriented x3, Cooperative HEENT: Atraumatic, PERRLA, EOMI, Normocephalic Neck: Supple, No JVD, Negative Carotid Bruits Lungs: Clear to auscultation, Normal air movement Cardiovascular: Regular rate, No murmurs Abdomen: Bowel Sounds Present, Soft, Non Tender Extremities: No edema, Capillary Refill Less than 3 Seconds Skin: No rashes, No breakdown Musculoskeletal: No Tenderness to Palpation of Joints or Extremities Neurological: Cranial nerves II-XII grossly intact Psych/Mental Status: Normal Affect, Appropriate, Alert and oriented to time, place, person, mood and affect Laboratory Results 01/16/20 15:57: POC Glucose 82 01/17/20 05:34: Sodium 128 L, Potassium 4.0, Chloride 100, Carbon Dioxide 25.0, Anion Gap 3 L, BUN 2 L, Creatinine 0.60 L, Estim Creat Clear Calc 126.32, Est GFR (MDRD) Af Amer 178, Est GFR (MDRD) Non-Af 147, BUN/Creatinine Ratio 3.3 L, Glucose 106, Calcium 8.2 L Current Medications Acetaminophen (Tylenol) 650 mg PO Q6H PRN PRN PRN Reason: Pain Score 1-10/Temp > 100.7 F Dextrose (D50w Syringe) 0 gm IV X1 PRN; Protocol PRN Reason: Hypoglycemia Enoxaparin Sodium (Lovenox) 40 mg SC DAILY [facility] Last Admin: 01/17/20 10:32 Dose: 40 mg Documented by: Glucagon () 1 mg IM .X1 PRN PRN Reason: Hypoglycemia Sodium Chloride () 1,000 mls @ 15 mls/hr IV .Q48H [facility] Last Admin: 01/17/20 04:29 Dose: Not Given Documented by: Sodium Chloride () 250 mls @ 15 mls/hr IV .[id number] PRN PRN Reason: Saline Flush Sodium Chloride () 250 mls @ 15 mls/hr IV .[id number] PRN PRN Reason: Additional IVPB Infusion Dextrose/Sodium Chloride (Dextrose 5%/0.9% Nacl) 1,000 mls @ 75 mls/hr IV .[id number] [facility] Last Admin: 01/17/20 05:54 Dose: 75 mls/hr Documented by: Lisinopril (Zestril) 20 mg PO DAILY [facility] Last Admin: 01/17/20 10:35 Dose: 20 mg Documented by: Lorazepam (Ativan) 2 mg PO Q2H PRN PRN; Protocol PRN Reason: CIWA score > 8 but <15 Last Admin: 01/14/20 08:23 Dose: 2 mg Documented by: Lorazepam (Ativan) 2 mg PO UD PRN; Protocol PRN Reason: CIWA score >/=15. Lorazepam (Ativan) 2 mg IV Q2H PRN PRN; Protocol PRN Reason: CIWA score > 8 but <15 Last Admin: 01/17/20 07:42 Dose: 2 mg Documented by: Lorazepam (Ativan) 2 mg IV UD PRN; Protocol PRN Reason: CIWA score >/=15. Last Admin: 01/16/20 17:16 Dose: 2 mg Documented by: Lorazepam (Ativan) 2 mg IV Q2H PRN PRN PRN Reason: SEIZURES Multivitamins/Minerals (Multivitamin With Minerals (Bkc)) 1 tablet PO DAILYCM [facility] Last Admin: 01/17/20 10:32 Dose: 1 tablet Documented by: Nicotine (Nicoderm Cq (Pbkc)) 14 mg TRANSDERM. DAILY [facility] Last Admin: 01/17/20 10:35 Dose: 14 mg Documented by: Ondansetron HCl (Zofran) 4 mg IV Q8H PRN PRN PRN Reason: NAUSEA/VOMITING Phenobarbital (Phenobarbital) 32.4 mg PO Q6H [facility]; Taper Stop: 01/18/20 02:44 Last Admin: 01/17/20 10:31 Dose: 32.4 mg Documented by: Sodium Chloride () 10 - 40 ml IV UD PRN PRN Reason: SALINE FLUSH Last Admin: 01/17/20 07:42 Dose: 10 ml Documented by: Sodium Chloride () 10 - 40 ml IV UD PRN PRN Reason: SALINE FLUSH STROKE Vital Signs/Narrative: Vital Signs Temp Pulse Resp BP Pulse Ox 01/17/20 07:53 97.9 F 80 18 131/78 H 95 01/17/20 07:45 97.9 F 80 18 131/71 H 96 Medical Necessity - Tobacco Use Smoking Status: Current every day smoker Tobacco Use: Cigarettes Assessment/Plan All Active Problems (Last Reviewed 01/13/20 @ 02:[address] Guillaume Jordan MD) Confusion (Acute) Hypokalemia (Acute) Acute metabolic encephalopathy (Acute) Hyponatremia (Acute) 1. Acute metabolic encephalopathy 2/2 acute on chronic hyponatremia and alcohol withdrawal - continue d5NaCl. Na128 2. Alcoholism - phenobarb taper, ativan, haldol prn. CIWA protocol, folate, thiamine repleted. -Phenobarb taper will be completed tomorrow AM. 3. Tobacco abuse - <1/2 ppd. continue patch. 4. HTN - HCTZ discontinued. Continue lisinopril. BP normal. DVT ppx: lovenox DC planning: referral to [facility] program This patient was seen by Kranthi Stephens PA-C under the supervision of Doctor Sherin. <Naren Duff E - Last Filed: 01/17/20 12:08> Vitals/I&O's: Vital Signs Temp Pulse Resp BP Pulse Ox 97.9 F 80 18 131/78 H 95 01/17/20 07:53 01/17/20 07:53 01/17/20 07:53 01/17/20 07:53 01/17/20 07:53 Oxygen Flow Rate (L/min) 2 Oxygen Delivery Method Room Air Weight: 141 lb 8.588 oz Body Mass Index (BMI) 22.2 Intake and Output for Last 24 Hours 01/15/20 01/16/20 01/17/20 23:59 23:59 23:59 Intake Total 2715 / 2715 3629.25 / 3629.25 581.25 / 581.25 Output Total 1400 / 1400 300 / 300 Balance 1315 / 1315 3629.25 / 3629.25 281.25 / 281.25 Laboratory Results 01/16/20 15:57: POC Glucose 82 01/17/20 05:34: Sodium 128 L, Potassium 4.0, Chloride 100, Carbon Dioxide 25.0, Anion Gap 3 L, BUN 2 L, Creatinine 0.60 L, Estim Creat Clear Calc 126.32, Est GFR (MDRD) Af Amer 178, Est GFR (MDRD) Non-Af 147, BUN/Creatinine Ratio 3.3 L, Glucose 106, Calcium 8.2 L Current Medications Acetaminophen (Tylenol) 650 mg PO Q6H PRN PRN PRN Reason: Pain Score 1-10/Temp > 100.7 F Dextrose (D50w Syringe) 0 gm IV X1 PRN; Protocol PRN Reason: Hypoglycemia Enoxaparin Sodium (Lovenox) 40 mg SC DAILY [facility] Last Admin: 01/17/20 10:32 Dose: 40 mg Documented by: Glucagon () 1 mg IM .X1 PRN PRN Reason: Hypoglycemia Sodium Chloride () 1,000 mls @ 15 mls/hr IV .Q48H [facility] Last Admin: 01/17/20 04:29 Dose: Not Given Documented by: Sodium Chloride () 250 mls @ 15 mls/hr IV .[id number] PRN PRN Reason: Saline Flush Sodium Chloride () 250 mls @ 15 mls/hr IV .[id number] PRN PRN Reason: Additional IVPB Infusion Dextrose/Sodium Chloride (Dextrose 5%/0.9% Nacl) 1,000 mls @ 75 mls/hr IV .[id number] [facility] Last Admin: 01/17/20 05:54 Dose: 75 mls/hr Documented by: Lisinopril (Zestril) 20 mg PO DAILY [facility] Last Admin: 01/17/20 10:35 Dose: 20 mg Documented by: Lorazepam (Ativan) 2 mg PO Q2H PRN PRN; Protocol PRN Reason: CIWA score > 8 but <15 Last Admin: 01/14/20 08:23 Dose: 2 mg Documented by: Lorazepam (Ativan) 2 mg PO UD PRN; Protocol PRN Reason: CIWA score >/=15. Lorazepam (Ativan) 2 mg IV Q2H PRN PRN; Protocol PRN Reason: CIWA score > 8 but <15 Last Admin: 01/17/20 07:42 Dose: 2 mg Documented by: Lorazepam (Ativan) 2 mg IV UD PRN; Protocol PRN Reason: CIWA score >/=15. Last Admin: 01/16/20 17:16 Dose: 2 mg Documented by: Lorazepam (Ativan) 2 mg IV Q2H PRN PRN PRN Reason: SEIZURES Multivitamins/Minerals (Multivitamin With Minerals (Bkc)) 1 tablet PO DAILYCM [facility] Last Admin: 01/17/20 10:32 Dose: 1 tablet Documented by: Nicotine (Nicoderm Cq (Pbkc)) 14 mg TRANSDERM. DAILY [facility] Last Admin: 01/17/20 10:35 Dose: 14 mg Documented by: Ondansetron HCl (Zofran) 4 mg IV Q8H PRN PRN PRN Reason: NAUSEA/VOMITING Phenobarbital (Phenobarbital) 32.4 mg PO Q6H [facility]; Taper Stop: 01/18/20 02:44 Last Admin: 01/17/20 10:31 Dose: 32.4 mg Documented by: Sodium Chloride () 10 - 40 ml IV UD PRN PRN Reason: SALINE FLUSH Last Admin: 01/17/20 07:42 Dose: 10 ml Documented by: Sodium Chloride () 10 - 40 ml IV UD PRN PRN Reason: SALINE FLUSH Assessment/Plan Hospitalist note: I am seeing this patient in conjunction with Kranthi Stephens. I independently seen and examined the patient. Progress note above, laboratory data and imaging studies reviewed and I concur with above treatment plan. Today, patient remained confused, disoriented, restless, trying to get out of bed. He is oriented to himself, knows his full name and date of , but disoriented to time and place. He was able to move all limbs with no focal deficit. His vital signs are stable. - Physical Exam General: Alert, oriented x1, disoriented to time and place, cooperative. HEENT: traumatic, bruises around left eye, PERRLA, EOMI. Neck: Supple, No JVD, Negative Carotid Bruits, Trachea Midline, Thyroid Normal. Lungs: Clear to auscultation, Normal air movement, No rhonchi, No wheeze, No rales. Cardiovascular: Regular rate, Regular Rhythm, Normal S1, Normal S2, PMI Normal. Abdomen: Bowel Sounds Present, Soft, Non Tender, Non-Distended, No Hepato-splenomegaly. Extremities: No clubbing, No cyanosis, No edema Skin: No rashes, No breakdown Neurological: Cranial nerves are intact, neuro grossly intact Vital Signs are stable. Assessment and plan: #1 acute metabolic encephalopathy: Multifactorial secondary to acute alcohol withdrawal and severe hyponatremia. Serum sodium improved. Patient remained confused and disoriented, trying to get out of bed. No focal deficit on physical examination. Patient has been on phenobarbital taper as well as Ativan as needed. CT scan brain showed no acute findings. CT scan cervical spine was unremarkable. Plan to continue same treatment, monitor. #2 acute on chronic hyponatremia/severe hypokalemia/hypochloremia/hypophosphatemia: Probably patient does have chronic hyponatremia secondary to alcohol abuse and could be exaggerated by dehydration. Today sodium was 128, potassium is 4. phosphorus was replaced and corrected, serum magnesium was normal. #3 alcohol abuse: Remained on CIWA protocol, folic acid, thiamine, PRN Ativan as well as phenobarbital taper. Patient remained confused, disoriented, combative, trying to get out of bed. His vital signs are stable. Plan to continue same treatment. #4 other chronic medical problems: Stable, continue current medications as above. This note was generated with [employer] dictation software. It may contain incorrect words, spelling, and punctuation that were not noted in checking the note before signing. Inpatient E&M: 97627 Subs Hosp L2
[2020-01-17 14:09] LABS: PROELU- Albumin, Urine 27.6 % (.); PROELU- Alpha-1-Globulin,Ur 9.9 % (.); PROELU- Beta Globulin, Ur 21.9 % (.); PROELU- Gamma Globulin, Ur 18.5 % (.); Total Protein, Ur 5.8 mg/dL (Not Estab.)
[2020-01-17] MEDS: LORazepam 1 MG Tablet 2 MG PO (17:15)
[2020-01-17] MEDS: QUEtiapine 25 MG Tablet PO (22:23)
[2020-01-18 03:02] VITALS: BP 151/79; PULSE 68; RESP 16; TEMP 36.8; O2SAT 99
[2020-01-18] MEDS: Dextrose 5%/0.9% NaCl 1,000 ML 75 ML IV ×2 (05:47→19:20)
[2020-01-18 06:20] LABS: Absolute Lymphocyte Count 1.43 X10^3/uL (0.83-4.51); Absolute Neutrophil Count 2.8 X10^3/uL (2.0-7.7); Basophil# 0.02 X10^3/uL; Basophil% 0.4 % (0-1); Eosinophil# 0.28 X10^3/uL; Eosinophils% 5.6 % (0-5); Hematocrit 42.3 % (40-54); Hemoglobin 14.8 g/dL (13.0-16.5); Lymphocyte # 1.43 X10^3/ul (4.0); Lymphocyte % 28.8 % (19-41); Mean Corpuscular Volume 91.4 fL (80-94); Mean Platelet Vol. 9.3 fl (6.2-12.0); Monocyte# 0.44 X10^3/uL; Monocyte% 8.9 % (0-10); NRBC Flagged by Analyzer 0 % (0-5); Neutrophil # 2.78 X10^3/uL (2.7-7.7); Neutrophil % 56.1 % (47-70); Platelet Count 140 K/mm3 (150-450); RBC Distribution Width CV 13.5 % (11.6-14.6); RBC Distribution Width SD 45.3 fl (35.1-43.9); Red Blood Count 4.63 M/mm3 (4.6-6.2)
[2020-01-18 06:40] LABS: ALB/GLOB Ratio 0.8 RATIO (0.9-2.4); AST(SGOT) 54 U/L (15-37); Alanine Aminotransfer ALT/SGPT 41 U/L (16-61); Albumin, Serum 2.8 g/dL (3.2-5.0); Alkaline Phosphatase 88 U/L (45-117); Anion Gap 2 (5-15); BUN 2 mg/dL (7-18); BUN/Creat Ratio 3.2 RATIO (10-20); Calcium,Total 8.3 mg/dL (8.5-10.1); Chloride 103 mmol/L (98-107); Creatinine, Serum 0.63 mg/dL (0.70-1.30); EST Glomerular Filtration Rate 141 mL/min (>60); Est Glom Filt Rate - Afr Amer 171 mL/min (>60); Globulin 3.6 g/dL (2.2-4.2); Glucose 99 mg/dL (74-106); Potassium 4.1 mmol/L (3.5-5.1); Protein, Total 6.4 g/dL (6.4-8.2); Sodium Level 132 mmol/L (136-145)
[2020-01-18 09:02] VITALS: BP 107/64; PULSE 85; RESP 18; TEMP 37; O2SAT 100
[2020-01-18] MEDS: QUEtiapine 25 MG Tablet PO ×3 (09:29→21:00)
[2020-01-18] MEDS: Enoxaparin 40 MG/0.4 ML Syringe SC (09:29)
[2020-01-18] MEDS: Multivitamins,Ther W-Minerals Tablet 1 TABLET PO (09:29)
[2020-01-18] MEDS: Lisinopril 20 MG Tablet PO (09:29)
[2020-01-18 15:00] VITALS: BP 132/76; PULSE 83; RESP 18; TEMP 37.1; O2SAT 98
--- NOTE | 2020-01-18 16:54 | PCM.PN.HOSP ---
Patient Problems: Active and Suspected Problems (Last Reviewed 01/13/20 @ 02:[address] Guillaume Jordan MD) Confusion (Acute) Hypokalemia (Acute) Acute metabolic encephalopathy (Acute) Hyponatremia (Acute) Subjective: Still little bit confused and tremulous, this morning he had spilled coffee on his blankets. Slow mentation Vitals/I&O's: Vital Signs Temp Pulse Resp BP Pulse Ox 98.8 F 83 18 132/76 H 98 01/18/20 15:00 01/18/20 15:00 01/18/20 15:00 01/18/20 15:00 01/18/20 15:00 Oxygen Flow Rate (L/min) 2 Oxygen Delivery Method Room Air Weight: 140 lb 3.424 oz Body Mass Index (BMI) 22.2 Intake and Output for Last 24 Hours 01/16/20 01/17/20 01/18/20 23:59 23:59 23:59 Intake Total 3629.25 / 3629.25 2065.00 / 2065.00 1166.25 / 1166.25 Output Total 300 / 300 Balance 3629.25 / 3629.25 1765.00 / 1765.00 1166.25 / 1166.25 General: Alert, Cooperative HEENT: Atraumatic, PERRLA, EOMI, Normocephalic Oral: Moist Mucosa Neck: Supple, No JVD Lungs: Clear to auscultation, Normal air movement, No rhonchi, No wheeze, No rales, Diminished Cardiovascular: Regular rate, Regular Rhythm, Normal S1, Normal S2, No murmurs Abdomen: Soft, Non Tender, Non-Distended, No Hepato-splenomegaly Extremities: No edema, Capillary Refill Less than 3 Seconds Skin: No rashes, No breakdown Neurological: Neuro grossly intact, Sensory exam intact to light touch and pain Psych/Mental Status: Flat Affect Laboratory Results 01/18/20 06:00: WBC 5.0, RBC 4.63, Hgb 14.8, Hct 42.3, MCV 91.4, MCH 32.0, MCHC 35.0, RDW Std Deviation 45.3 H, RDW Coeff of Leonel 13.5, Plt Count 140 L, MPV 9.3, Immature Gran % (Auto) 0.200, Neut % (Auto) 56.1, Lymph % (Auto) 28.8, [place] % (Auto) 8.9, Eos % (Auto) 5.6 H, Baso % (Auto) 0.4, Absolute Neuts (auto) 2.8, Absolute Lymphs (auto) 1.43, Nucleated RBC % 0 01/18/20 06:00: Sodium 132 L, Potassium 4.1, Chloride 103, Carbon Dioxide 27.0, Anion Gap 2 L, BUN 2 L, Creatinine 0.63 L, Estim Creat Clear Calc 120.30, Est GFR (MDRD) Af Amer 171, Est GFR (MDRD) Non-Af 141, BUN/Creatinine Ratio 3.2 L, Glucose 99, Calcium 8.3 L, Total Bilirubin 0.30, AST 54 H, ALT 41, Alkaline Phosphatase 88, Total Protein 6.4, Albumin 2.8 L, Globulin 3.6, Albumin/Globulin Ratio 0.8 L Current Medications Acetaminophen (Tylenol) 650 mg PO Q6H PRN PRN PRN Reason: Pain Score 1-10/Temp > 100.7 F Dextrose (D50w Syringe) 0 gm IV X1 PRN; Protocol PRN Reason: Hypoglycemia Enoxaparin Sodium (Lovenox) 40 mg SC DAILY [facility] Last Admin: 01/18/20 09:29 Dose: 40 mg Documented by: Glucagon () 1 mg IM .X1 PRN PRN Reason: Hypoglycemia Sodium Chloride () 1,000 mls @ 15 mls/hr IV .Q48H [facility] Last Admin: 01/17/20 04:29 Dose: Not Given Documented by: Sodium Chloride () 250 mls @ 15 mls/hr IV .[id number] PRN PRN Reason: Saline Flush Sodium Chloride () 250 mls @ 15 mls/hr IV .[id number] PRN PRN Reason: Additional IVPB Infusion Dextrose/Sodium Chloride (Dextrose 5%/0.9% Nacl) 1,000 mls @ 75 mls/hr IV .[id number] [facility] Last Admin: 01/18/20 05:47 Dose: 75 mls/hr Documented by: Lisinopril (Zestril) 20 mg PO DAILY [facility] Last Admin: 01/18/20 09:29 Dose: 20 mg Documented by: Lorazepam (Ativan) 2 mg PO Q2H PRN PRN; Protocol PRN Reason: CIWA score > 8 but <15 Last Admin: 01/17/20 17:15 Dose: 2 mg Documented by: Lorazepam (Ativan) 2 mg PO UD PRN; Protocol PRN Reason: CIWA score >/=15. Lorazepam (Ativan) 2 mg IV Q2H PRN PRN; Protocol PRN Reason: CIWA score > 8 but <15 Last Admin: 01/17/20 14:34 Dose: 2 mg Documented by: Lorazepam (Ativan) 2 mg IV UD PRN; Protocol PRN Reason: CIWA score >/=15. Last Admin: 01/16/20 17:16 Dose: 2 mg Documented by: Lorazepam (Ativan) 2 mg IV Q2H PRN PRN PRN Reason: SEIZURES Multivitamins/Minerals (Multivitamin With Minerals (Bkc)) 1 tablet PO DAILYCM [facility] Last Admin: 01/18/20 09:29 Dose: 1 tablet Documented by: Nicotine (Nicoderm Cq (Pbkc)) 14 mg TRANSDERM. DAILY [facility] Last Admin: 01/18/20 09:32 Dose: 14 mg Documented by: Ondansetron HCl (Zofran) 4 mg IV Q8H PRN PRN PRN Reason: NAUSEA/VOMITING Quetiapine Fumarate (Seroquel) 25 mg PO BID [facility] Last Admin: 01/18/20 09:29 Dose: 25 mg Documented by: Sodium Chloride () 10 - 40 ml IV UD PRN PRN Reason: SALINE FLUSH Last Admin: 01/17/20 07:42 Dose: 10 ml Documented by: Sodium Chloride () 10 - 40 ml IV UD PRN PRN Reason: SALINE FLUSH STROKE Vital Signs/Narrative: Vital Signs Temp Pulse Resp BP Pulse Ox 01/18/20 15:00 98.8 F 83 18 132/76 H 98 Medical Necessity - Tobacco Use Smoking Status: Current every day smoker Tobacco Use: Cigarettes Assessment/Plan All Active Problems (Last Reviewed 01/13/20 @ 02:[address] Guillaume Jordan MD) Confusion (Acute) Hypokalemia (Acute) Acute metabolic encephalopathy (Acute) Hyponatremia (Acute) 1. Acute metabolic encephalopathy secondary to hyponatremia and alcohol withdrawal -Continue with the alcohol withdrawal protocol -Continue with D5 normal at 75 cc an hour -Sodium is 132 today -Continue to hold hydrochlorothiazide 2. HTN -Blood pressure is stable -Continue with lisinopril -Hydrochlorothiazide has been discontinued given his hyponatremia DVT: Lovenox Inpatient E&M: 83324 Subs Hosp L2
[2020-01-18 20:07] VITALS: BP 130/78; PULSE 91; RESP 16; TEMP 37.2; O2SAT 98
[2020-01-19 00:11] VITALS: BP 140/76; PULSE 88; RESP 18; TEMP 36.6; O2SAT 96
[2020-01-19 04:05] VITALS: BP 140/76; PULSE 78; RESP 18; TEMP 37.2; O2SAT 96
[2020-01-19 06:46] LABS: Anion Gap 5 (5-15); BUN 3 mg/dL (7-18); BUN/Creat Ratio 4.4 RATIO (10-20); Calcium,Total 8.4 mg/dL (8.5-10.1); Chloride 102 mmol/L (98-107); Creatinine, Serum 0.68 mg/dL (0.70-1.30); EST Glomerular Filtration Rate 129 mL/min (>60); Est Glom Filt Rate - Afr Amer 156 mL/min (>60); Estimated Creatinine Clearance 111.63 ml/min; Glucose 90 mg/dL (74-106); Potassium 4.2 mmol/L (3.5-5.1); Sodium Level 132 mmol/L (136-145)
[2020-01-19 08:35] VITALS: BP 139/82; PULSE 89; RESP 18; TEMP 36.8; O2SAT 98
[2020-01-19] MEDS: Lisinopril 20 MG Tablet PO (08:38)
[2020-01-19] MEDS: Enoxaparin 40 MG/0.4 ML Syringe SC (08:39)
[2020-01-19] MEDS: Multivitamins,Ther W-Minerals Tablet 1 TABLET PO (08:39)
[2020-01-19] MEDS: Dextrose 5%/0.9% NaCl 1,000 ML 75 ML IV ×2 (08:46→21:01)
--- NOTE | 2020-01-19 09:04 | PN_ITS ---
Patient Problems: Active and Suspected Problems (Last Reviewed 01/13/20 @ 02:[address] Guillaume Jordan MD) Confusion (Acute) Hypokalemia (Acute) Acute metabolic encephalopathy (Acute) Hyponatremia (Acute) Subjective: Doing well, seems more alert today Vitals/I&O's: Vital Signs Temp Pulse Resp BP Pulse Ox 98.2 F 89 18 139/82 H 98 01/19/20 08:35 01/19/20 08:35 01/19/20 08:35 01/19/20 08:35 01/19/20 08:35 Oxygen Flow Rate (L/min) 2 Oxygen Delivery Method Room Air Weight: 141 lb 12.116 oz Body Mass Index (BMI) 22.2 Intake and Output for Last 24 Hours 01/17/20 01/18/20 01/19/20 23:59 23:59 23:59 Intake Total 2065.00 / 2065.00 2526.25 / 2526.25 1300 / 1300 Output Total 300 / 300 200 / 200 Balance 1765.00 / 1765.00 2526.25 / 2526.25 1100 / 1100 General: Alert, Oriented to person, place, and time, Cooperative, No distress HEENT: Atraumatic, PERRLA, EOMI, Normocephalic Oral: Moist Mucosa Neck: Supple, No JVD Lungs: Clear to auscultation, Normal air movement, No rhonchi, No wheeze, No rales, Diminished Cardiovascular: Regular rate, Regular Rhythm, Normal S1, Normal S2, No murmurs Abdomen: Soft, Non Tender, Non-Distended, No Hepato-splenomegaly Extremities: No edema, Capillary Refill Less than 3 Seconds Skin: No rashes, No breakdown Neurological: Neuro grossly intact, Sensory exam intact to light touch and pain Psych/Mental Status: Normal Affect, Appropriate Laboratory Results 01/19/20 05:40: Sodium 132 L, Potassium 4.2, Chloride 102, Carbon Dioxide 25.0, Anion Gap 5, BUN 3 L, Creatinine 0.68 L, Estim Creat Clear Calc 111.63, Est GFR (MDRD) Af Amer 156, Est GFR (MDRD) Non-Af 129, BUN/Creatinine Ratio 4.4 L, Glucose 90, Calcium 8.4 L Current Medications Acetaminophen (Tylenol) 650 mg PO Q6H PRN PRN PRN Reason: Pain Score 1-10/Temp > 100.7 F Dextrose (D50w Syringe) 0 gm IV X1 PRN; Protocol PRN Reason: Hypoglycemia Enoxaparin Sodium (Lovenox) 40 mg SC DAILY [facility] Last Admin: 01/19/20 08:39 Dose: 40 mg Documented by: Glucagon () 1 mg IM .X1 PRN PRN Reason: Hypoglycemia Sodium Chloride () 1,000 mls @ 15 mls/hr IV .Q48H [facility] Last Admin: 01/19/20 08:47 Dose: Not Given Documented by: Sodium Chloride () 250 mls @ 15 mls/hr IV .[id number] PRN PRN Reason: Saline Flush Sodium Chloride () 250 mls @ 15 mls/hr IV .[id number] PRN PRN Reason: Additional IVPB Infusion Dextrose/Sodium Chloride (Dextrose 5%/0.9% Nacl) 1,000 mls @ 75 mls/hr IV .[id number] [facility] Last Admin: 01/19/20 08:46 Dose: 75 mls/hr Documented by: Lisinopril (Zestril) 20 mg PO DAILY [facility] Last Admin: 01/19/20 08:38 Dose: 20 mg Documented by: Lorazepam (Ativan) 2 mg PO Q2H PRN PRN; Protocol PRN Reason: CIWA score > 8 but <15 Last Admin: 01/17/20 17:15 Dose: 2 mg Documented by: Lorazepam (Ativan) 2 mg PO UD PRN; Protocol PRN Reason: CIWA score >/=15. Lorazepam (Ativan) 2 mg IV Q2H PRN PRN; Protocol PRN Reason: CIWA score > 8 but <15 Last Admin: 01/17/20 14:34 Dose: 2 mg Documented by: Lorazepam (Ativan) 2 mg IV UD PRN; Protocol PRN Reason: CIWA score >/=15. Last Admin: 01/16/20 17:16 Dose: 2 mg Documented by: Lorazepam (Ativan) 2 mg IV Q2H PRN PRN PRN Reason: SEIZURES Multivitamins/Minerals ([facility] Last Admin: 01/19/20 08:39 Dose: 1 tablet Documented by: Nicotine (Nicoderm Cq (Pbkc)) 14 mg TRANSDERM. DAILY [facility] Last Admin: 01/19/20 08:38 Dose: 14 mg Documented by: Ondansetron HCl (Zofran) 4 mg IV Q8H PRN PRN PRN Reason: NAUSEA/VOMITING Quetiapine Fumarate (Seroquel) 25 mg PO BID [facility] Last Admin: 01/18/20 21:00 Dose: 25 mg Documented by: Sodium Chloride () 10 - 40 ml IV UD PRN PRN Reason: SALINE FLUSH Last Admin: 01/17/20 07:42 Dose: 10 ml Documented by: Sodium Chloride () 10 - 40 ml IV UD PRN PRN Reason: SALINE FLUSH STROKE Vital Signs/Narrative: Vital Signs Temp Pulse Resp BP Pulse Ox 01/19/20 08:35 98.2 F 89 18 139/82 H 98 Medical Necessity - Tobacco Use Smoking Status: Current every day smoker Tobacco Use: Cigarettes Assessment/Plan All Active Problems (Last Reviewed 01/13/20 @ 02:[address] Guillaume Jordan MD) Confusion (Acute) Hypokalemia (Acute) Acute metabolic encephalopathy (Acute) Hyponatremia (Acute) 1. Acute metabolic encephalopathy secondary to hyponatremia and alcohol withdrawal -Continue with the alcohol withdrawal protocol -Continue with D5 normal at 75 cc an hour -Sodium is 132 today -Continue to hold hydrochlorothiazide 2. HTN -Blood pressure is stable -Continue with lisinopril -Hydrochlorothiazide has been discontinued given his hyponatremia DVT: Lovenox Inpatient E&M: [id number] Subs Hosp L2
--- NOTE | 2020-01-19 09:51 | CASEMGMT ---
KADEN called Nafisa with [facility] to see when patient's appt is next week. Message was left. Await return call. Kelsy MCCANN MSW
--- NOTE | 2020-01-19 13:44 | CASEMGMT ---
KADEN met with patient, introduced self and role at [facility]. SW asked him about [facility] and if he had an appt. He said he does not have an appt and he is ok with SW calling to schedule one. KADEN called [facility] and the earliest appt SW could get for him is Jan 29 at 9am. He needs to come a little early, 830/845a. KADEN spoke with patient and let him know this information. He was fine with this appt. He also said he does not know if he still has a job. 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 He gave SW permission to call his employer and let them know when he came in and when he will be discharged. KADEN told him SW does not have to tell them why he is here and he would prefer that. KADEN called [email or web address] which is the department the power plant falls under. KADEN left a voice mail requesting a return call. KADEN notified physician of this plan. Plan: d/c home with appt at [facility] Jan 29 at 9a. Kelsy MCCANN MSW
[2020-01-19 15:04] VITALS: BP 140/86; PULSE 94; RESP 18; TEMP 36.9; O2SAT 99
--- NOTE | 2020-01-19 15:07 | CASEMGMT ---
SW spoke with patient's boss, Abdifatah Chenchoivonne. He is aware patient is in the hospital and they have his shift covered through the weekend and all next week. KADEN told him patient may be discharged tomorrow. He said if patient needs anything he can call him. He thanked SW for the phone call. KADEN let patient know SW spoke with his boss and that he still has a job. KADEN told him that Abdifatah said if he needs anything he can give him a call. Patient was relieved and thankful for the news. KADEN plugged his cell phone at the phone charging station behind nurses station. Plan: Home. Appt with [facility] was scheduled for January 29 at 9a (patient needs to be there at 830). Kelsy MCCANN MSW
[2020-01-19 20:41] VITALS: BP 164/83; PULSE 95; RESP 16; TEMP 36.9; O2SAT 96
[2020-01-19] MEDS: QUEtiapine 25 MG Tablet PO (21:00)
[2020-01-20 02:38] VITALS: BP 130/78; PULSE 87; RESP 16; TEMP 37; O2SAT 97
[2020-01-20 06:35] LABS: Anion Gap 4 (5-15); BUN 4 mg/dL (7-18); BUN/Creat Ratio 6.3 RATIO (10-20); Chloride 99 mmol/L (98-107); Creatinine, Serum 0.63 mg/dL (0.70-1.30); EST Glomerular Filtration Rate 140 mL/min (>60); Est Glom Filt Rate - Afr Amer 170 mL/min (>60); Estimated Creatinine Clearance 120.49 ml/min; Glucose 87 mg/dL (74-106); Sodium Level 130 mmol/L (136-145)
--- NOTE | 2020-01-20 08:29 | DCINST_ITS ---
- Discharge Diagnoses Current Active Problems: Current Active and Chronic Problems (Last Reviewed 01/13/20 @ 02:[address] Guillaume Jordan MD) Confusion (Acute) Hypokalemia (Acute) Acute metabolic encephalopathy (Acute) Hyponatremia (Acute) You will use the following diet at home:: Regular Your food should be the consistency of: Regular Your liquids should be the consistency of: Regular/Thin Discharge Activity: Return to Normal Activity Call your doctor if you observe: Fever of 101 or Higher, Shortness of breath, Dizziness, Fainting spells, Swelling in the ankles, Chest pain, Increased palpitations (irregular heartbeat) Allergies/Adverse Reactions: Allergies No Known Allergies Allergy (Unverified 08/06/17 09:13) Medications to take at Discharge cholecalciferol (vitamin D3) 1,250 mcg (50,000 unit) capsule 50,000 unit PO QWEEK #8 cap 08/24/17 sildenafil 50 mg tablet 50 mg PO QDAY PRN #6 tab 08/24/17 lisinopril 20 mg tablet 20 mg PO QDAY #90 tab 06/29/19 Primary Care Physician: Leilani Vallejo MD [Primary Care Provider] - Please follow up with your Primary Care Physician in: 3-5 days Test Results: Test results from this visit will be discussed in further detail at your follow- up appointment, if applicable. Please Follow Up With: [facility] When: 01/30/2020
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
[2020-01-20] MEDS: Lisinopril 20 MG Tablet PO (09:27)
[2020-01-20] MEDS: QUEtiapine 25 MG Tablet PO (09:27)
[2020-01-20] MEDS: Multivitamins,Ther W-Minerals Tablet 1 TABLET PO (09:28)
[2020-01-20 09:31] VITALS: BP 165/88; PULSE 89; RESP 20; TEMP 35.9; O2SAT 99
[2020-01-20 11:03] VITALS: BP 128/76; PULSE 100; RESP 18; TEMP 36.1; O2SAT 97
== END 2020-01-20 11:05 | disposition home or self-care (01) | DRG 896 ==
LOC: ED 01-13 01:33 → ICU 01-13 02:34 → PCU 01-15 09:31 → ICU 01-15 10:54 → PCU 01-15 10:54
PROVIDERS: Hospitalist; Internal Medicine Critical Care Medicine; Physician Assistant; Admitting Provider Hospitalist; Emergency Provider Emergency Medicine; PCP Internal Medicine; Visit Provider Family Medicine
DX: F10.239 Alcohol dependence with withdrawal, unspecified (principal); G93.41 Metabolic encephalopathy; E87.1 Hypo-osmolality and hyponatremia; E86.1 Hypovolemia; E83.39 Other disorders of phosphorus metabolism; Y90.0 Blood alcohol level of less than 20 mg/100 ml; E87.8 Other disorders of electrolyte and fluid balance, not elsewhere classified; E87.6 Hypokalemia; E78.5 Hyperlipidemia, unspecified; E86.0 Dehydration; I10 Essential (primary) hypertension; N52.9 Male erectile dysfunction, unspecified; K40.90 Unilateral inguinal hernia, without obstruction or gangrene, not specified as recurrent; G56.00 Carpal tunnel syndrome, unspecified upper limb; F17.210 Nicotine dependence, cigarettes, uncomplicated; Z87.898 Personal history of other specified conditions; Z79.899 Other long term (current) drug therapy
CPT/HCPCS: 36415; 70450; 71045; 72125; 80048; 80053; 80307; 80320; 81001; 82533; 82570; 82962; 83735; 83930; 83935; 84100; 84165; 84166; 84300; 84443; 84484; 84540; 85025; 85610; 87635; 93005; 94799; 97110; 97116; 97161; 97165; 97530; 99285; 99406; J7030; J7040; J7050; A4216; G0480; U0003

== ENCOUNTER → 2020-02-14 08:27 | Outpatient (CLI) | payer OTHER, SELFPAY ==
[2020-02-14 08:05] VITALS: BMI 22.1
[2020-02-14 12:28] LABS: Absolute Lymphocyte Count 3.01 X10^3/uL (0.83-4.51); Basophil# 0.04 X10^3/uL; Basophil% 0.6 % (0-1); Eosinophil# 0.34 X10^3/uL; Eosinophils% 5.3 % (0-5); Hematocrit 45.2 % (40-54); Hemoglobin 15.2 g/dL (13.0-16.5); Lymphocyte # 3.01 X10^3/ul (4.0); Mean Corp Hgb Conc 33.6 g/dL (32-36); Mean Corpuscular Hgb 31.5 pg (27.0-32.0); Mean Corpuscular Volume 93.6 fL (80-94); Mean Platelet Vol. 9.4 fl (6.2-12.0); Monocyte# 0.97 X10^3/uL; Monocyte% 15.1 % (0-10); NRBC Flagged by Analyzer 0 % (0-5); Neutrophil # 2.03 X10^3/uL (2.7-7.7); Neutrophil % 31.7 % (47-70); Platelet Count 167 K/mm3 (150-450); RBC Distribution Width CV 15.2 % (11.6-14.6); RBC Distribution Width SD 52.4 fl (35.1-43.9); Red Blood Count 4.83 M/mm3 (4.6-6.2); White Blood Count 6.4 K/mm3 (4.4-11.0)
[2020-02-14 12:51] LABS: ALB/GLOB Ratio 0.8 RATIO (0.9-2.4); AST(SGOT) 16 U/L (15-37); Alanine Aminotransfer ALT/SGPT 22 U/L (16-61); Albumin, Serum 3.7 g/dL (3.2-5.0); Alkaline Phosphatase 95 U/L (45-117); Anion Gap 5 (5-15); BUN 5 mg/dL (7-18); BUN/Creat Ratio 7.6 RATIO (10-20); Calcium,Total 8.9 mg/dL (8.5-10.1); Chloride 96 mmol/L (98-107); Creatinine, Serum 0.66 mg/dL (0.70-1.30); EST Glomerular Filtration Rate 134 mL/min (>60); Est Glom Filt Rate - Afr Amer 162 mL/min (>60); Globulin 4.5 g/dL (2.2-4.2); Glucose 68 mg/dL (74-106); Potassium 3.9 mmol/L (3.5-5.1); Protein, Total 8.2 g/dL (6.4-8.2); Sodium Level 129 mmol/L (136-145)
== END ==
PROVIDERS: PCP Internal Medicine; Referring Provider Nurse Practitioner Family; Visit Provider Nurse Practitioner Family
DX: E87.1 Hypo-osmolality and hyponatremia (principal); I10 Essential (primary) hypertension
CPT/HCPCS: 36415; 80053; 85025

== ENCOUNTER → 2020-04-16 13:44 | Outpatient (CLI) | payer OTHER, SELFPAY ==
[2020-04-16 13:10] VITALS: BMI 24.9
[2020-04-16 15:16] LABS: ALB/GLOB Ratio 0.9 RATIO (0.9-2.4); AST(SGOT) 20 U/L (15-37); Alanine Aminotransfer ALT/SGPT 19 U/L (16-61); Albumin, Serum 3.6 g/dL (3.2-5.0); Alkaline Phosphatase 89 U/L (45-117); Anion Gap 8 (5-15); BUN 3 mg/dL (7-18); BUN/Creat Ratio 3.9 RATIO (10-20); Calcium,Total 8.5 mg/dL (8.5-10.1); Chloride 93 mmol/L (98-107); Creatinine, Serum 0.77 mg/dL (0.70-1.30); EST Glomerular Filtration Rate 112 mL/min (>60); Est Glom Filt Rate - Afr Amer 135 mL/min (>60); Globulin 4.2 g/dL (2.2-4.2); Glucose 79 mg/dL (74-106); Protein, Total 7.8 g/dL (6.4-8.2); Sodium Level 129 mmol/L (136-145)
== END ==
PROVIDERS: PCP Internal Medicine; Referring Provider Nurse Practitioner Family; Visit Provider Nurse Practitioner Family
DX: I10 Essential (primary) hypertension (principal)
CPT/HCPCS: 36415; 80053

== ENCOUNTER → 2020-07-19 08:36 | Outpatient (CLI) | payer OTHER, SELFPAY ==
[2020-07-19 08:21] VITALS: BMI 25.2
[2020-07-19 12:07] LABS: Absolute Lymphocyte Count 1.91 X10^3/uL (0.83-4.51); Absolute Neutrophil Count 1.5 X10^3/uL (2.0-7.7); Basophil# 0.03 X10^3/uL; Basophil% 0.7 % (0-1); Eosinophil# 0.29 X10^3/uL; Eosinophils% 6.8 % (0-5); Hematocrit 46.4 % (40-54); Hemoglobin 15.7 g/dL (13.0-16.5); Lymphocyte # 1.91 X10^3/ul (4.0); Lymphocyte % 44.8 % (19-41); Mean Corp Hgb Conc 33.8 g/dL (32-36); Mean Corpuscular Hgb 29.6 pg (27.0-32.0); Mean Corpuscular Volume 87.5 fL (80-94); Mean Platelet Vol. 10.1 fl (6.2-12.0); Monocyte# 0.49 X10^3/uL; Monocyte% 11.5 % (0-10); NRBC Flagged by Analyzer 0 % (0-5); Neutrophil # 1.53 X10^3/uL (2.7-7.7); Platelet Count 145 K/mm3 (150-450); RBC Distribution Width CV 14.9 % (11.6-14.6); RBC Distribution Width SD 47.7 fl (35.1-43.9); White Blood Count 4.3 K/mm3 (4.4-11.0)
[2020-07-19 12:42] LABS: Vitamin D,25 Hydroxy 62.7 ng/mL
[2020-07-19 13:23] LABS: ALB/GLOB Ratio 0.9 RATIO (0.9-2.4); AST(SGOT) 20 U/L (15-37); Alanine Aminotransfer ALT/SGPT 19 U/L (16-61); Albumin, Serum 3.7 g/dL (3.2-5.0); Alkaline Phosphatase 85 U/L (45-117); Anion Gap 6 (5-15); BUN 3 mg/dL (7-18); BUN/Creat Ratio 3.8 RATIO (10-20); Calcium,Total 8.8 mg/dL (8.5-10.1); Chloride 95 mmol/L (98-107); Cholesterol 201 mg/dL (200); EST Glomerular Filtration Rate 106 mL/min (>60); Est Glom Filt Rate - Afr Amer 129 mL/min (>60); Globulin 4.2 g/dL (2.2-4.2); Glucose 77 mg/dL (74-106); High Density Lipoprotein 57 mg/dL; Potassium 3.6 mmol/L (3.5-5.1); Protein, Total 7.9 g/dL (6.4-8.2); Sodium Level 129 mmol/L (136-145); Thyroid Stim Hormone (TSH) 3.97 uIU/mL (0.358-3.74); Triglycerides 180 mg/dL; Very Low Density Lipoprotein 36 mg/dL (5-40)
[2020-07-19 16:12] LABS: T4 Free Direct 0.99 ng/dL (0.76-1.46)
== END ==
PROVIDERS: PCP Internal Medicine; Referring Provider Nurse Practitioner Family; Visit Provider Nurse Practitioner Family
DX: E78.5 Hyperlipidemia, unspecified (principal); I10 Essential (primary) hypertension; E55.9 Vitamin D deficiency, unspecified; F10.10 Alcohol abuse, uncomplicated; R94.6 Abnormal results of thyroid function studies
CPT/HCPCS: 36415; 80053; 80061; 82306; 84439; 84443; 85025

== ENCOUNTER 2020-08-13 06:08 | Day surgery (SDC) | payer OTHER, SELFPAY ==
[2020-07-24 09:29] VITALS: BMI 25.2
--- NOTE | 2020-08-12 12:41 | EKG12_ITS ---
Test Reason : PREOP Blood Pressure : / mmHG Vent. Rate : 076 BPM Atrial Rate : 076 BPM P-R Int : 168 ms QRS Dur : 122 ms QT Int : 418 ms P-R-T Axes : -14 018 050 degrees QTc Int : 470 ms Normal sinus rhythm Right bundle branch block Abnormal ECG Confirmed by KHUSHBU DOMINGO, HUEY ([id number]), website/blog editor NALINI MARIE ([id number]) on 08/13/2020 11:21:14 AM Referred By: Abdifatah Archuleta Confirmed By:HUEY RÍOS MD
[2020-08-13] VITALS (7 sets, daily range): BP systolic 115–153; BP diastolic 78–90; PULSE 75–86; RESP 16; TEMP 36.6–36.9; O2SAT 16–100; BMI 24.5
--- NOTE | 2020-08-13 06:15 | HP_ITS ---
Intake Vital Signs 07/24/20 Height 5 ft 8 in 07/24/20 Weight: 166 lb 07/24/20 BMI 25.2 07/24/20 BP 144/82 H 07/24/20 Blood Pressure Location Rt brachial 07/24/20 Position Sitting 07/24/20 Respiration 18 Intake Visit Reasons: HERNIA/ CSCOPE Chief Complaint: right inguinal hernia Weight And Test Bar Clerk Required: No Is patient in pain?: No Allergies No Known Allergies Allergy (Verified 07/24/20 09:31) Medications ergocalciferol (vitamin D2) 1,250 mcg (50,000 unit) capsule 50,000 unit PO QWEEK #12 cap 07/19/20 [Rx Confirmed 07/24/20] lisinopril 20 mg tablet 20 mg PO QDAY #90 tab 07/19/20 [Rx Confirmed 07/24/20] quetiapine 25 mg tablet 25 mg PO QHS #30 tab 07/19/20 [Rx Confirmed 07/24/20] sildenafil 50 mg tablet 50 mg PO QDAY PRN #7 tab 07/19/20 [Rx Confirmed 07/24/20] thiamine HCl (vitamin B1) 100 mg tablet 100 mg PO DAILY #90 tab 07/19/20 [Rx Confirmed 07/24/20] trazodone 50 mg tablet See Rx Instructions .ROUTE .COMPLEX #30 tab 07/19/20 [Rx Confirmed 07/24/20] PFSH Medical History Carpal tunnel syndrome (Chronic) Hypertension (Chronic) Right inguinal hernia (Acute) Social History (Updated 07/24/20 @ 09:[address] Peterson Regan MD) Smoking Status: Current every day smoker Tobacco: How many years used: 25 alcohol intake: current alcohol intake frequency: 3 or more drinks per day Alcohol type: beer substance use type: does not use what type of physical activity do you participate in: walking frequency: 5-6 times per week HPI HPI HPI: LUCIA RADFORD, is a 55 M who presents to the office today for HPI HPI Surgical H&P: Yes HPI: LUCIA RADFORD, is a 55 M who presents to the office today for Right groin bulging. The patient says that it has been present for approximately 5 years and is growing larger. He does not have any nausea or vomiting and does not have pain on a usual basis. He would like it fixed before it grows further and becomes more difficult to repair. Patient is not experiencing any pain on the opposite side and there is no radiation of pain. ROS General General: No weight change or fatigue Cardio Cardiovascular: No murmur, pacemaker, heart disease, atrial fibrillation, high blood pressure, heart attack, heart stent, palpitations, shortness of breat with exertion or chest pain Psych Psychiatric: No depression or anxiety Resp Respiratory: No shortness of breath, No sleep apnea, No cough, No COPD, No asthma, No emphysema, No wheezing Gastro Gastrointestinal: No abdominal pain, No nausea or vomiting, No diarrhea, No constipation, No blood in stool, No acid reflux, No hemorrhoids, No ulcers, No gallbladder problem, No black,tarry stools Juvencio Hematologic: No blood thinners Exam Const General: cooperative Orientation: alert, oriented x3 Resp Effort & Inspection: normal respiratory effort Auscultation: clear to auscultation bilaterally Cardio Rate: regular rate Rhythm: regular rhythm Heart Sounds: no murmurs GI Inspection: non-distended Palpation: soft, hernia indirect inguinal on the right, nontender Assessment & Plan Problems 1. Screen for colon cancer Z12.11 2. Right inguinal hernia K40.90 Plan The patient has a right inguinal hernia which is reducible. He would like this repaired. I discussed laparoscopic robotic assisted repair with him. I discussed the procedure in detail As well as the risks including but not limited to bleeding, infection, injury to underlying bowel, injury to spermatic cord, chronic groin pain, recurrence of hernia. The patient understands all the risks and is well to proceed. I also discussed repairing a hernia on the opposite side if it is present and the patient would like to proceed with that if it is present. I also discussed possible conversion to open hernia repair. The patient has also never had a screening colonoscopy and I did recommend having a screening colonoscopy prior to his hernia repair. I explained endoscopy in detail to the patient. I explained the risks including but not limited to stroke or heart attack with anesthesia, perforation of the GI tract, bleeding, infection. I explained that any of these could necessitate further emergency surgery. The patient understands and all questions were answered sufficiently. The patient wishes to proceed with procedure. We discussed the current risks associated with COVID-19. While it is understood that there is a community spread of COVID-19, the risk of shi COVID-19 while at [facility] ([facility]) is very low; however, the risk cannot be completely mitigated because of the community spread of the disease. We discussed in detail the risk of exposure to and/or potential harm posed by the COVID-19 virus with having a surgery/procedure at this time versus the risk of delaying the surgery/procedure. It is not possible to know either the risk of delaying the surgery or procedure or chance of getting an infection with perfect accuracy, but a joint decision was made to proceed at this time with the scheduled surgery/procedure as indicated on the consent form. Patient was notified that we will need to comply with any screening or testing [facility] wishes to perform or that surgery may be delayed for any positive results. Peterson Regan MD Pager: [facility] [address] [place] [address], [address] [place] [address] Office: Orders Orders: Colonoscopy Today Z12.11 Coding Level of Care Code Off vis,new,level 3 Diagnoses Screen for colon cancer Z12.11 Right inguinal hernia K40.90 I have seen and reexamined the patient. No changes since prior exam.
[2020-08-13] MEDS: Lactated Ringers 1,000 ML 100 ML IV (06:39)
--- NOTE | 2020-08-13 07:30 | COLBX_PTH ---
PATIENT: LUCIA RADFORD LOC: EN U#:[id number] AGE/SX: 55/M ROOM: RE08/13/[address]: Dr. Peterson Regan MD : 1965 BED: DIS: 08/13/2020 SPEC #: [id number] RECD: 08/13/20 13:03 STATUS: QUIRINO BARBARA #: [id number] COLE: 08/13/20 07:[address]: Peterson Regan DEPT: SURGICAL PATHOLOGY RECD BY: Fernanda Pino ENTERED: 08/13/20 13:34 SP TYPE: COLON BX OTHR DR: Abdifatah Archuleta, BRIAN-Sheila Tissues: Transverse colon Procedures: Surgery Specimen Level IV HEADER OPERATION: Colonoscopy (MAC) PRE-OP DIAGNOSIS: Screen for colon cancer TISSUE SUBMITTED: Transverse polyp (1 cm) MICROSCOPIC DIAGNOSIS Transverse colon polyp, biopsy: Tubular adenoma. AM:zaria 08/14/2020 MICROSCOPIC DESCRIPTION Slides are reviewed. GROSS DESCRIPTION Received in fixative is one container labeled with the patient's name and designated transverse polyp. The specimen consists of a pink-red polyp measuring 1 x 0.5 x 0.5 cm. The apparent base is inked. The polyp is bisected and submitted entirely in one cassette. / SJ:rg 08/13/20 TC:5 CPT: 25789
--- NOTE | 2020-08-13 07:50 | OP.COLON_ITS ---
Patient Name: Jani Hebert Procedure Date: 08/13/2020 7:21 AM Date of : 1965 Age: 55 Procedure: Colonoscopy Indications: Screening for colorectal malignant neoplasm Providers: Peterson Regan MD Referring MD: Abdifatah Archuleta NP Medicines: Monitored Anesthesia Care Patient Profile: This is a 55 year old male. Refer to note in patient chart for documentation of history and physical. Last Colonoscopy: none. The patient's first colonoscopy is today. Complications: No immediate complications. Estimated blood loss: Minimal. Procedure: Pre-Anesthesia Assessment: - Prior to the procedure, a History and Physical was performed, and patient medications and allergies were reviewed. The patient's tolerance of previous anesthesia was also reviewed. The risks and benefits of the procedure and the sedation options and risks were discussed with the patient. All questions were answered, and informed consent was obtained. Prior Anticoagulants: The patient has taken no previous anticoagulant or antiplatelet agents. After reviewing the risks and benefits, the patient was deemed in satisfactory condition to undergo the procedure. After I obtained informed consent, the scope was passed under direct vision. Throughout the procedure, the patient's blood pressure, pulse, and oxygen saturations were monitored continuously. The Colonoscope was introduced through the anus and advanced to the cecum, identified by appendiceal orifice and ileocecal valve. The colonoscopy was performed without difficulty. The patient tolerated the procedure well. The quality of the bowel preparation was good. Scope In: 7:31:02 AM Scope Withdrawal Time 0 hours 6 minutes 7 seconds Scope Out: 7:46:26 AM Total Procedure Duration Time 0 hours 15 minutes 24 seconds Findings: A 10 mm polyp was found in the transverse colon. The polyp was pedunculated. The polyp was removed with a hot snare. Resection and retrieval were complete. The exam was otherwise without abnormality on direct and retroflexion views. Impression: - One 10 mm polyp in the transverse colon, removed with a hot snare. Resected and retrieved. - The examination was otherwise normal on direct and retroflexion views. Recommendation: - Discharge patient to home. - Resume previous diet. - Continue present medications. - Await pathology results. - Repeat colonoscopy in 3 years for surveillance. Procedure Code(s): --- Professional --- 75518, Colonoscopy, flexible; with removal of tumor(s), polyp(s), or other lesion(s) by snare technique Diagnosis Code(s): --- Professional --- Z12.11, Encounter for screening for malignant neoplasm of colon D12.3, Benign neoplasm of transverse colon (hepatic flexure or splenic flexure) CPT copyright 2017 [employer]. All rights reserved. The codes documented in this report are preliminary and upon freight handler review may be revised to meet current compliance requirements. Peterson Regan MD 08/13/2020 7:50:03 AM This report has been signed electronically. Number of Addenda: 0 Note Initiated On: 08/13/2020 7:21 AM
--- NOTE | 2020-08-13 07:50 | OP.CCLET_ITS ---
08/13/2020 Abdifatah Archuleta NP [address] [place] [address] [place] [address] Re : Colonoscopy procedure for Jani Urenadt Dear Mr. Archuleta This procedure was performed on Thursday, August 13, 2020. My impressions and recommendations are as follows: Impressions : - One 10 mm polyp in the transverse colon, removed with a hot snare. Resected and retrieved. - The examination was otherwise normal on direct and retroflexion views. Recommendations : - Discharge patient to home. - Resume previous diet. - Continue present medications. - Await pathology results. - Repeat colonoscopy in 3 years for surveillance. My findings are described in the full procedure note, which is enclosed. If I can be of further assistance, please feel free to contact me at Doctor phone number(s): , Work: . Sincerely, Peterson Regan MD 08/13/2020 7:50:03 AM This report has been signed electronically.
== END 2020-08-13 08:20 | disposition home or self-care (01) ==
LOC: EN 06:08 → AC 06:08
PROVIDERS: PCP Nurse Practitioner Family; Referring Provider Nurse Practitioner Family; Visit Provider Surgery
PROC: 0DJD8ZZ Inspection of Lower Intestinal Tract, Via Natural or Artificial Opening Endoscopic (ICD-10-PCS; CPT 45378; principal; 2020-08-13 07:25)
DX: Z12.11 Encounter for screening for malignant neoplasm of colon (principal); D12.3 Benign neoplasm of transverse colon; K40.90 Unilateral inguinal hernia, without obstruction or gangrene, not specified as recurrent; I10 Essential (primary) hypertension; F17.200 Nicotine dependence, unspecified, uncomplicated; Z79.899 Other long term (current) drug therapy; Z20.822 Contact with and (suspected) exposure to COVID-19
CPT/HCPCS: 45385; 87426; 88305; 93005; J7120; J2405

== ENCOUNTER 2020-08-15 05:39 | Day surgery (SDC) | payer OTHER, SELFPAY ==
[2020-07-24 09:29] VITALS: BMI 25.2
[2020-08-13 06:32] VITALS: BMI 24.5
[2020-08-15] VITALS (7 sets, daily range): BP systolic 124–179; BP diastolic 62–93; PULSE 71–78; RESP 16–18; TEMP 36.2–37.6; O2SAT 94–100; BMI 24.0
--- NOTE | 2020-08-15 06:15 | HP_ITS ---
Intake Vital Signs 07/24/20 Height 5 ft 8 in 07/24/20 Weight: 166 lb 07/24/20 BMI 25.2 07/24/20 BP 144/82 H 07/24/20 Blood Pressure Location Rt brachial 07/24/20 Position Sitting 07/24/20 Respiration 18 Intake Visit Reasons: HERNIA/ CSCOPE Chief Complaint: right inguinal hernia [employer] Required: No Is patient in pain?: No Allergies No Known Allergies Allergy (Verified 07/24/20 09:31) Medications ergocalciferol (vitamin D2) 1,250 mcg (50,000 unit) capsule 50,000 unit PO QWEEK #12 cap 07/19/20 [Rx Confirmed 07/24/20] lisinopril 20 mg tablet 20 mg PO QDAY #90 tab 07/19/20 [Rx Confirmed 07/24/20] quetiapine 25 mg tablet 25 mg PO QHS #30 tab 07/19/20 [Rx Confirmed 07/24/20] sildenafil 50 mg tablet 50 mg PO QDAY PRN #7 tab 07/19/20 [Rx Confirmed 07/24/20] thiamine HCl (vitamin B1) 100 mg tablet 100 mg PO DAILY #90 tab 07/19/20 [Rx Confirmed 07/24/20] trazodone 50 mg tablet See Rx Instructions .ROUTE .COMPLEX #30 tab 07/19/20 [Rx Confirmed 07/24/20] PFSH Medical History Carpal tunnel syndrome (Chronic) Hypertension (Chronic) Right inguinal hernia (Acute) Social History (Updated 07/24/20 @ 09:[address] Peterson Regan MD) Smoking Status: Current every day smoker Tobacco: How many years used: 25 alcohol intake: current alcohol intake frequency: 3 or more drinks per day Alcohol type: beer substance use type: does not use what type of physical activity do you participate in: walking frequency: 5-6 times per week HPI HPI HPI: LUCIA RADFORD, is a 55 M who presents to the office today for HPI HPI Surgical H&P: Yes HPI: LUCIA RADFORD, is a 55 M who presents to the office today for Right groin bulging. The patient says that it has been present for approximately 5 years and is growing larger. He does not have any nausea or vomiting and does not have pain on a usual basis. He would like it fixed before it grows further and becomes more difficult to repair. Patient is not experiencing any pain on the opposite side and there is no radiation of pain. ROS General General: No weight change or fatigue Cardio Cardiovascular: No murmur, pacemaker, heart disease, atrial fibrillation, high blood pressure, heart attack, heart stent, palpitations, shortness of breat with exertion or chest pain Psych Psychiatric: No depression or anxiety Resp Respiratory: No shortness of breath, No sleep apnea, No cough, No COPD, No asthma, No emphysema, No wheezing Gastro Gastrointestinal: No abdominal pain, No nausea or vomiting, No diarrhea, No constipation, No blood in stool, No acid reflux, No hemorrhoids, No ulcers, No gallbladder problem, No black,tarry stools Juvencio Hematologic: No blood thinners Exam Const General: cooperative Orientation: alert, oriented x3 Resp Effort & Inspection: normal respiratory effort Auscultation: clear to auscultation bilaterally Cardio Rate: regular rate Rhythm: regular rhythm Heart Sounds: no murmurs GI Inspection: non-distended Palpation: soft, hernia indirect inguinal on the right, nontender Assessment & Plan Problems 1. Screen for colon cancer Z12.11 2. Right inguinal hernia K40.90 Plan The patient has a right inguinal hernia which is reducible. He would like this repaired. I discussed laparoscopic robotic assisted repair with him. I discussed the procedure in detail As well as the risks including but not limited to bleeding, infection, injury to underlying bowel, injury to spermatic cord, chronic groin pain, recurrence of hernia. The patient understands all the risks and is well to proceed. I also discussed repairing a hernia on the opposite side if it is present and the patient would like to proceed with that if it is present. I also discussed possible conversion to open hernia repair. The patient has also never had a screening colonoscopy and I did recommend having a screening colonoscopy prior to his hernia repair. I explained endoscopy in detail to the patient. I explained the risks including but not limited to stroke or heart attack with anesthesia, perforation of the GI tract, bleeding, infection. I explained that any of these could necessitate further emergency surgery. The patient understands and all questions were answered sufficiently. The patient wishes to proceed with procedure. We discussed the current risks associated with COVID-19. While it is understood that there is a community spread of COVID-19, the risk of shi COVID-19 while at [facility] ([facility]) is very low; however, the risk cannot be completely mitigated because of the community spread of the disease. We discussed in detail the risk of exposure to and/or potential harm posed by the COVID-19 virus with having a surgery/procedure at this time versus the risk of delaying the surgery/procedure. It is not possible to know either the risk of delaying the surgery or procedure or chance of getting an infection with perfect accuracy, but a joint decision was made to proceed at this time with the scheduled surgery/procedure as indicated on the consent form. Patient was notified that we will need to comply with any screening or testing [facility] wishes to perform or that surgery may be delayed for any positive results. Peterson Regan MD Pager: [facility] [address] [place] [address], [address] [place] [address] Office: Orders Orders: Colonoscopy Today Z12.11 Coding Level of Care Code Off vis,new,level 3 Diagnoses Screen for colon cancer Z12.11 Right inguinal hernia K40.90 I have seen and reexamined the patient. No changes since prior exam.
[2020-08-15] MEDS: Lactated Ringers 1,000 ML 100 ML IV (06:34)
[2020-08-15 06:35] LABS: Prothrombin Time (Protime)PT. 12.8 SECONDS (11.7-14.9)
[2020-08-15 06:36] LABS: Partial Thromboplast Time 31.5 Seconds (24.1-36.2)
[2020-08-15 06:50] LABS: AST(SGOT) 35 U/L (15-37); Alanine Aminotransfer ALT/SGPT 20 U/L (16-61); Albumin, Serum 3.5 g/dL (3.2-5.0); Alkaline Phosphatase 103 U/L (45-117); Bilirubin, Direct 0.09 mg/dL (0.00-0.30); Globulin 4.4 g/dL (2.2-4.2); Protein, Total 7.9 g/dL (6.4-8.2)
[2020-08-15] MEDS: Cefazolin 2 GM in 0.9% Normal Saline 100 ML IV (07:22)
[2020-08-15] MEDS: Bupivacaine Mpf 0.5% 30 ML VIAL (08:15)
--- NOTE | 2020-08-15 08:28 | PCM.OPRPT ---
Problem List (1) Right inguinal hernia Status: Resolved Report of Operation Date of Procedure: 08/15/20 Pre-Operative Diagnosis: Right inguinal hernia Post-Operative Diagnosis: Same Surgery/Procedure Performed:: Robotic assisted laparoscopic right inguinal hernia repair with mesh Specimen's removed: None Description of Procedure: Patient was brought back to the operating room and general anesthesia was induced. The abdomen was prepped and draped in usual sterile fashion. An incision was made superior to the umbilicus and the fascia was grasped elevated and a Veress needle was placed into the abdomen and a drop test was performed. The abdomen was then insufflated to 15 mmHg. The Veress needle was removed and a camera port was placed into the abdomen. The camera was placed into the abdomen and it was inspected for injuries and there were none. The inguinal regions were inspected and the patient only had a right inguinal hernia and no left inguinal hernia. Next under direct visualization a right lateral 8 mm port and a left lateral 8 mm port were placed into the abdomen. The patient was placed in a Trendelenburg position and the robot was docked. The cautery scissors were used to make a horizontal incision in the peritoneum in the right groin. This was deepened to the hernia sac and the hernia was reduced. The direct right inguinal hernia contained bladder. All the contents and hernia sac were reduced into the abdomen easily. The ProGrip mesh was unfolded and placed into the right groin over the hernia. The peritoneum was reapproximated using a running 3-0V lock suture completely covering the mesh. The robot was undocked and the ports were removed and the abdomen was allowed to desufflate. The incisions were anesthetized with local anesthetic and closed with interrupted 4-0 Monocryl sutures as well as Steri-Strips and bandages. The scrotum was checked to the end the case and contain both testicles. The patient was then awoken and taken to PACU in stable condition and tolerated the procedure well. Grafts/Implants Used: Honey Extractor mesh - Admit VTE Documentation VTE Mechan Device Prophylaxis: SCD's
--- NOTE | 2020-08-15 08:32 | DCINST_ITS ---
Discharge Diet: Light diet - advance as tolerated Discharge Activity: Return to Normal Activity, May Not Drive - for 2-3 days or while taking narcotic pain meds., May Shower - with the bandage in place 1-2 days after surgery. Lifting Restrictions: 20 pounds for 4 weeks. Additional Activity Instructions:: Climbing stairs is fine, walking is encouraged. Sitting in bed may be uncomfortable. Sitting up using your lateral muscles (sitting up sideways) is usually more comfortable. Do not drive, work heavy equipment of sign legal documents for 24 hours. If your hernia repair was an ingunial repair, you may have scrotal swelling, an ice pack and/or athletic support can provide more comfort. Pain medications may cause nausea, you should typically eat light foods as you take your pain medications. Pain medications may also cause constipation. If you have difficulty with this, discuss with your doctor. Call your doctor if your incision/area has: Continuous Slow Oozing, Sudden Increased Bleeding, Increased Pain/ Swelling, Increased Redness, Foul Smelling Discharge Call your doctor if you observe: Fever of 101 or Higher Suture Line Care: Avoid Pulling/Pushing, Avoid Pinching/Bending Change Dressing in (Days):: 3 - Leave steri-strips for 1 week. May protect with a guaze bandaid. Cleanse incision/area with: Keep Dressing Clean & Dry Allergies/Adverse Reactions: Allergies No Known Allergies Allergy (Verified 08/15/20 06:00) Medications to take at Discharge ergocalciferol (vitamin D2) 1,250 mcg (50,000 unit) capsule 50,000 unit PO QWEEK #12 cap 07/19/20 lisinopril 20 mg tablet 20 mg PO QDAY #90 tab 07/19/20 quetiapine 25 mg tablet 25 mg PO QHS #30 tab 07/19/20 sildenafil 50 mg tablet 50 mg PO QDAY PRN #7 tab 07/19/20 trazodone 50 mg tablet See Rx Instructions .ROUTE .COMPLEX #30 tab 07/19/20 Cholecalciferol (Vitamin D3) [Vitamin D3] 10 mcg PO DAILY 08/02/20 Cyanocobalamin (Vitamin B-12) [Vitamin B-12] 100 mcg PO DAILY 08/02/20 Multivitamin 1 ea PO DAILY 08/02/20 Oxycodone HCl/Acetaminophen [Percocet 5-325 mg Tablet] 1 - 2 tab PO Q6H PRN PRN 3 Days #10 tablet 08/15/20 The following prescriptions were given: Oxycodone HCl/Acetaminophen [Percocet 5-325 mg Tablet] 1 - 2 tab PO Q6H PRN PRN 3 Days #10 tablet PRN Reason: Pain Score 4-10/10 Transmission Status: Sent to [facility] Primary Care Physician: Abdifatah Archuleta TICKET TAKER FERRYBOAT, TICKET TAKER FERRYBOAT-C [Primary Care Provider] - Test Results: Test results from this visit will be discussed in further detail at your follow- up appointment, if applicable. Please Follow Up With: Peterson Regan MD When: Please call to schedule 2 week follow up appointment. [phone]
[2020-08-15] MEDS: Acetaminophen 325 MG Tablet PO (10:08)
[2020-08-15] MEDS: oxyCODONE 5 MG Tablet PO (10:08)
== END 2020-08-15 10:53 | disposition home or self-care (01) ==
LOC: SDC 05:39 → AC 05:40
PROVIDERS: Anesthesiology; PCP Nurse Practitioner Family; Referring Provider Nurse Practitioner Family; Visit Provider Surgery
PROC: (CPT 49650; principal; 2020-08-15 07:10)
DX: K40.90 Unilateral inguinal hernia, without obstruction or gangrene, not specified as recurrent (principal); I10 Essential (primary) hypertension; F17.200 Nicotine dependence, unspecified, uncomplicated; Z79.899 Other long term (current) drug therapy
CPT/HCPCS: 00840; 49650; S2900; 80076; 85610; 85730; C9803; J7120; J2405

== ENCOUNTER → 2021-11-25 | Outpatient (CLI) | payer BC, SELFPAY ==
--- NOTE | 2021-11-25 13:38 | CT_ITS ---
STUDY: LOW DOSE CT LUNG CANCER SCREENING REASON FOR EXAM: Male, 56 years old. Lung cancer screening -- and gt;30 pk yr hx;current smoker;asymptomatic RADIATION DOSAGE (If Supplied By Facility): CTDIvol = ( 12.19 ) mGy, DLP = ( 195.04 ) mGycm TECHNIQUE: No contrast was administered. Low dose technique was utilized (average mAS-38 and kVp 120). 1.25 mm axial source images with a slice interval of 1.25-mm were reconstructed in lung windows. 2.5 mm axial source images with a slice interval of 2.5-mm were reconstructed in lung windows. 5.0 mm axial source images with a slice interval of 5.0-mm were reconstructed in soft tissue windows. COMPARISON: None. NODULES: No suspicious nodules are seen. Emphysema: Hyperinflation. Diffuse emphysematous changes and bullous formation more prominent in the upper lobes. Endobronchial lesion: Unremarkable Aorta: Atherosclerotic calcific plaques. CORONARY ARTERIES: Coronary artery calcification is seen. Heart: Unremarkable Pulmonary artery: Unremarkable Mediastinal nodes: Small mediastinal lymph nodes. Other chest and abdominal findings: CT/Low Dose CT Lung Screening IMPRESSION: Lung-RADS category 2 - Continue annual screening with LDCT in 12 months. IMPORTANT NOTES FOR USE: ACR Lung-RADS Version 1.1 Assessment Categories Release Date: 2018 Category: Coded 0-4 bases on nodule(s) with highest degree of suspicion. Negative screen is defined as categories 1 and 2; a positive screen is defined as categories 3 and 4. Category 3 and 4A nodules that are unchanged on interval CT should be coded as category 2, and individuals returned to screening in 12 months. Category 4X: Category 3 or 4 nodules with additional imaging findings that increase the suspicion of lung cancer, such as spiculation, GGN that doubles in size in 1 year, enlarged lymph notes, etc. Category Modifiers: S (significant finding unrelated to lung cancer) Electronically Signed: Hossein Roberson MD at 14:40 EDT ,
== END | disposition home or self-care (01) ==
PROVIDERS: PCP Nurse Practitioner Family; Visit Provider Nurse Practitioner Family
DX: Z12.2 Encounter for screening for malignant neoplasm of respiratory organs (principal); Z87.891 Personal history of nicotine dependence
CPT/HCPCS: 71271

== ENCOUNTER → 2022-10-02 | Outpatient (CLI) | payer BC, SELFPAY ==
[2022-10-02 12:31] LABS: Absolute Lymphocyte Count 1.99 X10^3/uL (0.83-4.51); Absolute Neutrophil Count 1.4 X10^3/uL (2.0-7.7); Basophil# 0.04 X10^3/uL; Eosinophil# 0.19 X10^3/uL; Eosinophils% 4.8 % (0-5); Hematocrit 32.4 % (40-54); Lymphocyte # 1.99 X10^3/ul (0.83-4.51); Mean Corpuscular Hgb 26.8 pg (27.0-32.0); Mean Corpuscular Volume 78.8 fL (80-94); Mean Platelet Vol. 9.2 fl (6.2-12.0); Monocyte# 0.39 X10^3/uL; Monocyte% 9.8 % (0-10); NRBC Flagged by Analyzer 0 % (0-5); Neutrophil # 1.36 X10^3/uL (2.7-7.7); Neutrophil % 34.1 % (47-70); Platelet Count 123 K/mm3 (150-450); RBC Distribution Width SD 45.3 fl (35.1-43.9); Red Blood Count 4.11 M/mm3 (4.6-6.2)
[2022-10-02 13:28] LABS: ALB/GLOB Ratio 0.8 RATIO (0.9-2.4); AST(SGOT) 21 U/L (15-37); Alanine Aminotransfer ALT/SGPT 19 U/L (16-61); Albumin, Serum 3.4 g/dL (3.2-5.0); Alkaline Phosphatase 88 U/L (45-117); Anion Gap 7 (5-15); BUN 5 mg/dL (7-18); BUN/Creat Ratio 6.1 RATIO (10-20); Calcium,Total 8.4 mg/dL (8.5-10.1); Chloride 87 mmol/L (98-107); Cholesterol 177 mg/dL (200); Creatinine, Serum 0.82 mg/dL (0.70-1.30); EST Glomerular Filtration Rate 103 mL/min (>60); Est Glom Filt Rate - Afr Amer 125 mL/min (>60); Globulin 4.3 g/dL (2.2-4.2); Glucose 91 mg/dL (74-106); High Density Lipoprotein 55 mg/dL; PSA,Total - Annual Screen 0.95 ng/mL (0.00-4.00); Potassium 3.5 mmol/L (3.5-5.1); Protein, Total 7.7 g/dL (6.4-8.2); Sodium Level 121 mmol/L (136-145); Thyroid Stim Hormone (TSH) 3.53 uIU/mL (0.358-3.74); Triglycerides 121 mg/dL; Very Low Density Lipoprotein 24 mg/dL (5-40)
[2022-10-02 13:48] LABS: Vitamin B12 505 pg/mL (211-911)
[2022-10-02 14:00] LABS: Ferritin 19 ng/mL (26-388); Iron 23 ug/dL (65-175); Iron Binding Capacity,Total 510 ug/dL (250-450); PERCENT IRON SATURATION 4.5 % (15.0-55.0)
[2022-10-02 14:12] LABS: GGTP 53 U/L (15-85)
[2022-10-02 18:27] LABS: Platelet Count 125 K/mm3 (150-450); RET-HE 26.3 pg (30-35); Reticulocyte Count 2.29 % (0.5-1.5)
[2022-10-14 07:08] LABS: Vitamin B1, Thiamine 55.6 nmol/L (66.5-200.0)
== END | disposition home or self-care (01) ==
LOC: BIMLAB 08:52
PROVIDERS: PCP Nurse Practitioner Family; Referring Provider Nurse Practitioner Family; Visit Provider Nurse Practitioner Family
DX: Z00.00 Encounter for general adult medical examination without abnormal findings (principal); Z12.5 Encounter for screening for malignant neoplasm of prostate; I10 Essential (primary) hypertension; E78.5 Hyperlipidemia, unspecified; F10.10 Alcohol abuse, uncomplicated; F17.200 Nicotine dependence, unspecified, uncomplicated; D50.9 Iron deficiency anemia, unspecified
CPT/HCPCS: 36415; 80053; 80061; 82607; 82728; 82746; 82977; 83540; 83550; 84153; 84425; 84443; 85025; 85045; G0103

== ENCOUNTER 2022-12-18 06:53 | Day surgery (SDC) | payer BC, SELFPAY ==
[2022-12-18] VITALS (7 sets, daily range): BP systolic 124–155; BP diastolic 70–81; PULSE 74–90; RESP 16–18; TEMP 36.2–36.6; O2SAT 100; BMI 23.6
[2022-12-18] MEDS: Lactated Ringers 1,000 ML 15 ML IV (07:18)
--- NOTE | 2022-12-18 08:00 | IMM_PTH ---
PATIENT: LUCIA RADFORD LOC: EN U#:[id number] AGE/SX: 57/M ROOM: RE12/18/[address]: Dr. Peterson Regan MD : 1965 BED: DIS: 12/18/2022 SPEC #: [id number] RECD: 12/18/22 13:32 STATUS: QUIRINO REMelissa #: [id number] COLE: 12/18/22 08:[address]: Peterson Regan DEPT: IMMUNOHISTOCHEMISTRY RECD BY: Rosenda Coley ENTERED: 12/18/22 13:32 SP TYPE: IMMUNO OTHR DR: Abdifatah Archuleta, BRIAN-C Tissues: Stomach, NOS Procedures: H Pylori (initial) PHYSICIAN & INSTITUTION [place] [address] SPECIMEN INFORMATION: Tissue Source: Antrum Clinical Info: Iron deficiency anemia due to chronic blood loss Specimen Number: [id number] CPT code: 39384 METHODOLOGY: Deparaffinized sections of prefer/formalin-fixed tissue or PAP/DQ stained slides are incubated with monoclonal/polyclonal antibodies/oligonucleotide probes. Localization is made via biotin free immunoperoxidase method. Appropriate controls are performed and reacted as expected. Results on target cell population are indicated in the following table: RESULTS: ANTIBODY / CLONE RESULT H Pylori (polyclonal) negative These tests were developed and their performance characteristics determined by [facility]. They may not have been cleared or approved by the U.S. Food and Drug Administration. The FDA has determined that such clearance or approval is not necessary. The above immunohistochemical/dualISH markers are ordered and reviewed by the Pathologist. INTERPRETATION: Antrum, biopsy: Negative for Helicobacter pylori organisms. AM:zaria 12/21/2022
--- NOTE | 2022-12-18 08:00 | EGD_PTH ---
PATIENT: LUCIA RADFORD LOC: EN U#:[id number] AGE/SX: 57/M ROOM: RE12/18/[address]: Dr. Peterson Regan MD : 1965 BED: DIS: 12/18/2022 SPEC #: [id number] RECD: 12/18/22 12:09 STATUS: QUIRINO BARBARA #: [id number] COLE: 12/18/22 08:[address]: Peterson Regan DEPT: SURGICAL PATHOLOGY RECD BY: Fernanda Pino ENTERED: 12/18/22 12:53 SP TYPE: EGD BIOPSY OTHR DR: AMBER Lino Tissues: Gastric mucous membrane Procedures: Surgery Specimen Level IV HEADER OPERATION: Colonoscopy, EGD ([facility] [place] biopsy PRE-OP DIAGNOSIS: Iron deficiency anemia due to chronic blood loss TISSUE SUBMITTED: Antrum biopsy for histo and H. pylori MICROSCOPIC DIAGNOSIS Gastric antrum, biopsy: Mild chronic gastritis. See comment. AM:zaria 12/21/2022 COMMENT The results of immunohistochemistry for Helicobacter pylori will be reported separately ([id number]). MICROSCOPIC DESCRIPTION Slides are reviewed. GROSS DESCRIPTION Received in fixative is one container labeled with the patient's name and designated antrum. The specimen consists of multiple irregular fragments of light barnes soft tissue that in aggregate measure 0.5 x 0.2 x 0.1 cm. The specimen is totally submitted in one cassette. / AM:zaria 12/18/2022 TC:3 CPT: 60656
--- NOTE | 2022-12-18 08:40 | HP.PCM_ITS ---
History and Physical Date of Admission: 12/18/22 Intake Vital Signs 11/11/2308:00 Height 5 ft 9 in Weight: 167 lb BMI 24.6 BP 143/80 H Blood Pressure Location Rt brachial Position Sitting Respiration 17 Pulse 85 Pulse Source Monitor Temp 97 F L Temp Source Temporal Pulse Oximetry (%) 99 Oxygen Delivery Method room air Intake Visit Reasons: UPPER & LOWER FOR ANEMIA Chief Complaint: upper and lower for anemia Is patient in pain?: No Allergies No Known Allergies Allergy (Verified 11/11/22 09:01) Medications multivitamin 1 ea PO DAILY 08/02/20 [History Confirmed 11/11/22] cyanocobalamin (vitamin B-12) 100 mcg tablet 100 mcg PO DAILY #90 tabs 03/31/22 [Rx Confirmed 11/11/22] ergocalciferol (vitamin D2) 1,250 mcg (50,000 unit) capsule 50,000 unit PO QWEEK #12 caps 10/02/22 [Rx Confirmed 11/11/22] lisinopril 20 mg-hydrochlorothiazide 25 mg tablet 1 tab PO DAILY #90 tabs 10/02/22 [Rx Confirmed 11/11/22] trazodone 50 mg tablet 50 mg PO QHS PRN sleep #90 tabs 10/02/22 [Rx Confirmed 11/11/22] varenicline 0.5 mg (11)-1 mg (42) tablets in a dose pack (Chantix Starting Month Box) See Rx Instructions PO PER PKG DIR #53 tabs 10/02/22 [Rx Confirmed 11/11/22] varenicline 1 mg tablet (Chantix Continuing Month Box) 1 mg PO BID #56 tabs 11/10/22 [Rx Confirmed 11/11/22] PFSH Medical History B12 deficiency Carpal tunnel syndrome Encounter for screening for malignant neoplasm of lung Gammopathy History of tobacco use Hypertension Iron deficiency anemia due to chronic blood loss Pancytopenia Right inguinal hernia Social History Smoking Status: Current every day smoker tobacco type: cigarettes Tobacco: How many years used: 30 alcohol intake: current alcohol intake frequency: 3 or more drinks per day Alcohol type: beer substance use type: does not use what type of physical activity do you participate in: walking frequency: 5-6 times per week HPI HPI HPI: Patient is a 57-year-old male here for an deficiency anemia and black stools. Patient reports his black stool started about a month ago. He is not having any abdominal pain. He does not take any blood thinners. He had a colonoscopy 2 years ago and a tubular adenoma was removed. ROS General General: No weight change, appetite, fatigue, colon cancer, breast cancer or weakness HEENT HEENT: No difficulty swallowing, eye injury, eye surgery, swollen glands or hoarseness Endo Endocrine: No thyroid disease, diabetes mellitus, thyroid cancer, Hair loss, heat intolerance or cold intolerance Skin Skin: No rash or changing moles Musc Musculoskeletal: No back problems, arthritis, rheumatoid arthritis, gout or joint pain Cardio Cardiovascular: Yes high blood pressure; No murmur, pacemaker, heart disease, atrial fibrillation, heart attack, heart stent, palpitations, shortness of breat with exertion or chest pain Psych Psychiatric: No depression, anxiety or hearing voices Resp Respiratory: No shortness of breath, No sleep apnea, No cough, No COPD, No asthma, No emphysema and No wheezing Gastro Gastrointestinal: No abdominal pain, No nausea or vomiting, No diarrhea, No cons tipation, No blood in stool, No acid reflux, No hemorrhoids, No ulcers, No gallbladder problem and No black,tarry stools Juvencio Hematologic: No blood thinners, No blood disorders, No bleeding, No anemia and No blood clots Neuro Neurologic: No system reviewed and no additional complaints, except as documented, No as per HPI, No abnormal gait, No abnormal hearing, No abnormal movements, No abnormal speech, No behavioral changes, No burning sensations, No confusion, No convulsions, No disequilibrium, No dizziness, No localized weakness, No frequent falls, No headache(s), No lack of coordination, No loss of vision, No memory loss, No numbness, No other visual disturbances, No radicular pain, No restless legs, No sensory deficit, No syncope, No tingling, No tremor(s), No weakness and No other Exam Const General: cooperative Orientation: alert and oriented x3 HENMT Head: normal to inspection Neck Neck: normal visual inspection and full ROM Chest Chest palpation & inspection: normal inspection of the chest Resp Effort & Inspection: normal respiratory effort Auscultation: clear to auscultation bilaterally Cardio Rate: regular rate Rhythm: regular rhythm GI Inspection: non-distended Palpation: soft and nontender Skin General: no rashes or lesions noted Neuro General: patient alert and patient oriented x3 Extrem General: full ROM Psych Appearance: grossly normal Mental Status: mental status grossly normal Assessment and Plan Assessment and Plan (1) Iron deficiency anemia due to chronic blood loss: Status: Chronic Plan: Plan for EGD and colonoscopy. I explained endoscopy in detail to the patient. I explained the risks including but not limited to stroke or heart attack with anesthesia, perforation of the GI tract, bleeding, infection. I explained that any of these could necessitate further emergency surgery. The patient understands and all questions were answered sufficiently. The patient wishes to proceed with procedure. Peterson Regan MD Pager: [facility] [address] [place] [address], [address] [place] [address] Office: I have examined the patient and the H&P has been reviewed. There are no clinical changes since date of exam.
--- NOTE | 2022-12-18 09:16 | OP.EGD_ITS ---
Patient Name: Jani Hebert Procedure Date: 12/18/2022 8:44 AM Date of : 1965 Age: 57 Procedure: Upper GI endoscopy Indications: Iron deficiency anemia, Melena Providers: Peterson Regan MD Referring MD: Peterson Regan MD Medicines: Monitored Anesthesia Care Patient Profile: This is a 57 year old male. Refer to note in patient chart for documentation of history and physical. Complications: No immediate complications. Estimated blood loss: Minimal. Procedure: Pre-Anesthesia Assessment: - Prior to the procedure, a History and Physical was performed, and patient medications and allergies were reviewed. The patient's tolerance of previous anesthesia was also reviewed. The risks and benefits of the procedure and the sedation options and risks were discussed with the patient. All questions were answered, and informed consent was obtained. Prior Anticoagulants: The patient has taken no previous anticoagulant or antiplatelet agents. After reviewing the risks and benefits, the patient was deemed in satisfactory condition to undergo the procedure. After obtaining informed consent, the endoscope was passed under direct vision. Throughout the procedure, the patient's blood pressure, pulse, and oxygen saturations were monitored continuously. The Endoscope was introduced through the mouth, and advanced to the third part of duodenum. The upper GI endoscopy was accomplished without difficulty. The patient tolerated the procedure well. Scope In: 8:55:48 AM Scope Out: 8:58:51 AM Total Procedure Duration Time 0 hours 3 minutes 3 seconds Findings: The esophagus was normal. The examined duodenum was normal. Localized inflammation characterized by adherent blood was found in the gastric antrum. Biopsies were taken with a cold forceps for Helicobacter pylori testing. Impression: - Normal esophagus. - Normal examined duodenum. - Gastritis. Biopsied. Recommendation: - Discharge patient to home. - Resume previous diet. - Continue present medications. - Use Prilosec (omeprazole) 40 mg PO daily. Procedure Code(s): --- Professional --- 29564, Esophagogastroduodenoscopy, flexible, transoral; with biopsy, single or multiple Diagnosis Code(s): --- Professional --- K29.70, Gastritis, unspecified, without bleeding D50.9, Iron deficiency anemia, unspecified K92.1, Melena (includes Hematochezia) CPT copyright 2017 [employer]. All rights reserved. The codes documented in this report are preliminary and upon tester vibrator equipment review may be revised to meet current compliance requirements. Peterson Regan MD 12/18/2022 9:16:18 AM This report has been signed electronically. Number of Addenda: 0 Note Initiated On: 12/18/2022 8:44 AM
--- NOTE | 2022-12-18 09:17 | OP.CCLET_ITS ---
12/18/2022 Abdifatah Archuleta NP [address] [place] [address] [place] [address] Re : Upper GI endoscopy procedure for Jani Duttaquardt Dear Mr. Archuleta This procedure was performed on Sunday, December 18, 2022. My impressions and recommendations are as follows: Impressions : - Normal esophagus. - Normal examined duodenum. - Gastritis. Biopsied. Recommendations : - Discharge patient to home. - Resume previous diet. - Continue present medications. - Use Prilosec (omeprazole) 40 mg PO daily. My findings are described in the full procedure note, which is enclosed. If I can be of further assistance, please feel free to contact me at Doctor phone number(s): , Work: . Sincerely, Peterson Regan MD 12/18/2022 9:16:18 AM This report has been signed electronically.
--- NOTE | 2022-12-18 09:21 | OP.COLON_ITS ---
Patient Name: Jani Hebert Procedure Date: 12/18/2022 8:59 AM Date of : 1965 Age: 57 Procedure: Colonoscopy Indications: High risk colon cancer surveillance: Personal history of colonic polyps Providers: Peterson Regan MD Referring MD: Peterson Regan MD Medicines: Propofol per Anesthesia Patient Profile: This is a 57 year old male. Refer to note in patient chart for documentation of history and physical. Last Colonoscopy: 3 years ago. Complications: No immediate complications. Procedure: Pre-Anesthesia Assessment: - Prior to the procedure, a History and Physical was performed, and patient medications and allergies were reviewed. The patient's tolerance of previous anesthesia was also reviewed. The risks and benefits of the procedure and the sedation options and risks were discussed with the patient. All questions were answered, and informed consent was obtained. Prior Anticoagulants: The patient has taken no previous anticoagulant or antiplatelet agents. After reviewing the risks and benefits, the patient was deemed in satisfactory condition to undergo the procedure. After I obtained informed consent, the scope was passed under direct vision. Throughout the procedure, the patient's blood pressure, pulse, and oxygen saturations were monitored continuously. The was introduced through the anus and advanced to the cecum, identified by appendiceal orifice and ileocecal valve. The colonoscopy was performed without difficulty. The patient tolerated the procedure well. The quality of the bowel preparation was good. Scope In: 9:01:33 AM Scope Withdrawal Time 0 hours 5 minutes 40 seconds Scope Out: 9:12:41 AM Total Procedure Duration Time 0 hours 11 minutes 8 seconds Findings: The entire examined colon appeared normal on direct and retroflexion views. Impression: - The entire examined colon is normal on direct and retroflexion views. - No specimens collected. Recommendation: - Discharge patient to home. - Resume previous diet. - Continue present medications. - Repeat colonoscopy in 5 years for surveillance. Procedure Code(s): --- Professional --- 56409, Colonoscopy, flexible; diagnostic, including collection of specimen(s) by brushing or washing, when performed (separate procedure) Diagnosis Code(s): --- Professional --- Z86.010, Personal history of colonic polyps CPT copyright 2017 [employer]. All rights reserved. The codes documented in this report are preliminary and upon network security analyst review may be revised to meet current compliance requirements. Peterson Regan MD 12/18/2022 9:20:49 AM This report has been signed electronically. Number of Addenda: 0 Note Initiated On: 12/18/2022 8:59 AM
--- NOTE | 2022-12-18 09:21 | OP.CCLET_ITS ---
12/18/2022 Abdifatah Archuleta NP [address] [place] [address] [place] [address] Re : Colonoscopy procedure for Jani Urenadt Dear Mr. Archuleta This procedure was performed on Sunday, December 18, 2022. My impressions and recommendations are as follows: Impressions : - The entire examined colon is normal on direct and retroflexion views. - No specimens collected. Recommendations : - Discharge patient to home. - Resume previous diet. - Continue present medications. - Repeat colonoscopy in 5 years for surveillance. My findings are described in the full procedure note, which is enclosed. If I can be of further assistance, please feel free to contact me at Doctor phone number(s): , Work: . Sincerely, Peterson Regan MD 12/18/2022 9:20:49 AM This report has been signed electronically.
== END 2022-12-18 10:06 | disposition home or self-care (01) ==
LOC: EN 06:54 → AC 06:55
PROVIDERS: PCP Nurse Practitioner Family; Referring Provider Nurse Practitioner Family; Visit Provider Surgery
PROC: 0DJD8ZZ Inspection of Lower Intestinal Tract, Via Natural or Artificial Opening Endoscopic (ICD-10-PCS; CPT 45378; principal; 2022-12-18 07:55)
DX: Z12.11 Encounter for screening for malignant neoplasm of colon (principal); K29.51 Unspecified chronic gastritis with bleeding; D50.0 Iron deficiency anemia secondary to blood loss (chronic); I10 Essential (primary) hypertension; E78.5 Hyperlipidemia, unspecified; E53.8 Deficiency of other specified B group vitamins; E55.9 Vitamin D deficiency, unspecified; F17.210 Nicotine dependence, cigarettes, uncomplicated; Z79.899 Other long term (current) drug therapy; Z86.010 Personal history of colon polyps
CPT/HCPCS: 45378; 43239; 88305; 88342; J7120; J2405